=== PATIENT | male | born 1965 | race Caucasian/White ===

== ENCOUNTER 2017-09-18 11:54 | Emergency (ER) | payer SELFPAY ==
--- OUTSIDE RECORDS SUMMARY | 2017-09-18 11:56 | XMS REPORT ---
:1965 [facility] Organization [facility] Address [address] [place] [address] [place] [id number] Care Team Providers Name Role Phone Unavailable Unavailable Unavailable Problems This patient has no known problems. Allergies, Adverse Reactions, Alerts This patient has no known allergies or adverse reactions. Medications This patient has no known medications. Encounters Start End Encounter Admission Attending Care Care Encounter Date/Time Date/Time Type Type Clinicians Facility Department ID 2017-05-23 2017-05-23 Emergency [facility] [id number] 10:14:13 10:14:13 2017-04-02 2017-04-02 Outpatient [facility] [id number] 15:09:47 15:09:47 2017-04-02 2017-04-02 Outpatient [facility] [id number] 14:58:43 14:58:43 2017-04-02 2017-04-02 Outpatient [facility] [id number] 14:04:08 14:04:08 2017-03-28 2017-03-28 Outpatient [facility] [id number] 16:45:33 16:45:33 2017-02-05 2017-02-05 Emergency [facility] [id number] 21:02:24 21:02:24 2017-01-27 2017-01-27 Emergency [facility] [id number] 20:43:13 20:43:13 2017-01-21 2017-01-21 Outpatient [facility] [id number] 00:00:00 00:00:00 2017-01-08 2017-01-08 Outpatient [facility] [id number] 00:00:00 00:00:00 2017-01-01 2017-01-01 Outpatient [facility] [id number] 00:00:00 00:00:00 2017-01-01 2017-01-01 Outpatient [facility] [id number] 00:00:00 00:00:00 2017-01-01 2017-01-01 Outpatient [facility] [id number] 00:00:00 00:00:00 2016-12-18 2016-12-18 Outpatient [facility] [id number] 09:56:12 09:56:12 2016-12-12 2016-12-12 Outpatient [facility] [id number] 11:41:30 11:41:30 2016-12-09 2016-12-09 Emergency [facility] [id number] 09:52:31 09:52:31 2016-12-09 2016-12-09 Outpatient [facility] [id number] 00:00:00 00:00:00 2016-12-08 2016-12-08 Outpatient [facility] [id number] 12:43:28 12:43:28 2016-12-08 2016-12-08 Outpatient [facility] [id number] 10:58:53 10:58:53 2016-11-28 2016-11-28 Outpatient [facility] [id number] 00:00:00 00:00:00 2016-11-28 2016-11-28 Outpatient [facility] [id number] 00:00:00 00:00:00 2016-11-28 2016-11-28 Outpatient [facility] [id number] 00:00:00 00:00:00 2016-11-28 2016-11-28 Outpatient [facility] [id number] 00:00:00 00:00:00 2016-11-27 2016-11-27 Outpatient [facility] [id number] 00:00:00 00:00:00 2016-11-26 2016-11-26 Outpatient [facility] [id number] 14:28:37 14:28:37 2016-11-06 2016-11-06 Outpatient [facility] [id number] 00:00:00 00:00:00 2016-10-29 2016-10-29 Outpatient [facility] [id number] 00:00:00 00:00:00 2016-10-27 2016-10-27 Outpatient [facility] [id number] 09:39:08 09:39:08 2016-10-03 2016-10-03 Outpatient [facility] [id number] 09:27:24 09:27:24
[2017-09-18] MEDS ORDERED: NA CHLORIDE 0.9% 1,000 ML ONE (12:09)
[2017-09-18 12:26] LABS: Absolute Lymphocytes (CBC) 1.7 K/uL (0.7-4.9); Absolute Monocytes 0.4 K/uL (0.1-1.3); Absolute Neutrophil 4.4 K/uL (1.8-8.0); Basophils % 0.5 % (0-1.3); Eosinophils % 0.9 % (0-4.4); Hematocrit 44.9 % (39.6-49.0); Lymphocytes % 25.6 % (15.3-44.8); MCH 28.8 pg (27.0-35.0); MCV 88.3 fL (80-100); MPV 8.2 fL (7.6-11.3); Monocytes % 5.9 % (3.3-12.3); RBC Red Blood Cell Count 5.08 M/uL (4.33-5.43)
--- NOTE | 2017-09-18 12:26 | RAD REPORT ---
EXAM DESCRIPTION: RAD - Chest Single View - 09/18/2017 12:11 pm CLINICAL HISTORY: Diabetes. COMPARISON: None. FINDINGS: Portable technique limits examination quality. The lungs are grossly clear. The heart is normal in size. No displaced fractures. IMPRESSION: No acute intrathoracic process suspected.
[2017-09-18 12:32] LABS: Protime INR 0.98
--- NOTE | 2017-09-18 12:36 | RAD REPORT ---
EXAM DESCRIPTION: CT - Head Brain Wo Cont - 09/18/2017 12:14 pm CLINICAL HISTORY: Hypoglycemia, altered mental status COMPARISON: None. TECHNIQUE: Axial 5 mm thick images of the head were obtained without IV contrast. All CT scans are performed using dose optimization technique as appropriate and may include automated exposure control or mA/KV adjustment according to patient size. FINDINGS: No intracranial hemorrhage, mass, edema or shift of mid-line structures. No acute cortical based infarction. Physiologic calcifications are present along the falx. There is a punctate hyperde nsity along a sulcus medial left frontal lobe not suspected to be true hemorrhage or contusion. No ab normal extra-axial fluid collections. Ventricles are normal. Mastoid air cells and visualized portions of the paranasal sinuses are clear. No acute bony findings. IMPRESSION: Negative non-contrast CT head examination.
[2017-09-18 12:40] LABS: Bicarbonate 26 mEq/L (21-31); Glucose Level 109 mg/dL (65-120); Potassium 3.2 mEq/L (3.6-5.0); Sodium Level 138 mEq/L (135-145)
[2017-09-18 12:46] LABS: ALT/SGPT 21 IU/L (10-60); AST/SGOT 27 IU/L (10-42); Albumin 3.6 g/dL (3.2-5.5); Alkaline Phosphatase 124 IU/L (42-121); BUN Blood Urea Nitrogen 10 mg/dL (6-20); Bilirubin Direct 0.1 mg/dL (0-0.2); Bilirubin Total 0.6 mg/dL (0.3-1.2); Creatine Phosphokinase 160 IU/L (22-269); Magnesium 1.8 mg/dL (1.8-2.5); Protein, Total 7.5 g/dL (6.0-8.3)
[2017-09-18 12:48] LABS: Alcohol Serum/Plasma < 10 mg/dl
[2017-09-18 12:50] LABS: CKMB Creatine Kinase MB 5.5 ng/ml (0.3-4.0)
--- NOTE | 2017-09-18 13:03 | EDPHYS ---
Physician Documentation [facility] Name: Bubba Santillan Age: 52 yrs Sex: Male : 1965 Arrival Date: 09/18/2017 Time: 11:55 Bed 2 Private MD: ED Physician Francisco Garcia HPI: 09/18 11:59 This 52 yrs old Male presents to ER via EMS with complaints of Low Blood sandeep Sugar. 11:59 The patient or guardian reports hypoglycemia. Onset: The symptoms/episode sandeep began/occurred yesterday. Associated signs and symptoms: Pertinent positives: ams. The patient has experienced similar episodes in the past, multiple times. Historical: - Allergies: 12:00 No Known Allergies; ph - Home Meds: 12:00 Novolin N 100 unit/mL Sub-Q susp [Active]; Novolin R 100 unit/mL injection soln ph [Active]; - PMHx: 12:00 Diabetes - IDDM; ph - Immunization history:: Adult Immunizations unknown. - Social history:: Smoking status: unknown. - Family history:: not pertinent. - Ebola Screening: : No symptoms or risks identified at this time. ROS: 11:59 Constitutional: Negative for fever, chills, and weight loss, Eyes: Negative for injury, sandeep pain, redness, and discharge, ENT: Negative for injury, pain, and discharge, Neck: Negative for injury, pain, and swelling, Cardiovascular: Negative for chest pain, palpitations, and edema, Respiratory: Negative for shortness of breath, cough, wheezing, and pleuritic chest pain, Abdomen/GI: Negative for abdominal pain, nausea, vomiting, diarrhea, and constipation, Back: Negative for injury and pain, : Negative for injury, bleeding, discharge, and swelling, MS/Extremity: Negative for injury and deformity, Skin: Negative for injury, rash, and discoloration, Neuro: Negative for headache, weakness, numbness, tingling, and seizure, Psych: Negative for depression, anxiety, suicide ideation, homicidal ideation, and hallucinations, Allergy/Immunology: Negative for hives, rash, and allergies, Hematologic/Lymphatic: Negative for swollen nodes, abnormal bleeding, and unusual bruising. 11:59 Endocrine: Positive for Exam: 11:59 Constitutional: This is a well developed, well nourished patient who is awake, alert, sandeep and in no acute distress. Head/Face: Normocephalic, atraumatic. Eyes: Pupils equal round and reactive to light, extra-ocular motions intact. Lids and lashes normal. Conjunctiva and sclera are non-icteric and not injected. Cornea within normal limits. Periorbital areas with no swelling, redness, or edema. ENT: Nares patent. No nasal discharge, no septal abnormalities noted. Tympanic membranes are normal and external auditory canals are clear. Oropharynx with no redness, swelling, or masses, exudates, or evidence of obstruction, uvula midline. Mucous membranes moist. Neck: Trachea midline, no thyromegaly or masses palpated, and no cervical lymphadenopathy. Supple, full range of motion without nuchal rigidity, or vertebral point tenderness. No Meningismus. Chest/axilla: Normal chest wall appearance and motion. Nontender with no deformity. No lesions are appreciated. Cardiovascular: Regular rate and rhythm with a normal S1 and S2. No gallops, murmurs, or rubs. Normal PMI, no JVD. No pulse deficits. Respiratory: Lungs have equal breath sounds bilaterally, clear to auscultation and percussion. No rales, rhonchi or wheezes noted. No increased work of breathing, no retractions or nasal flaring. Abdomen/GI: Soft, non-tender, with normal bowel sounds. No distension or tympany. No guarding or rebound. No evidence of tenderness throughout. Back: No spinal tenderness. No costovertebral tenderness. Full range of motion. Skin: Warm, dry with normal turgor. Normal color with no rashes, no lesions, and no evidence of cellulitis. MS/ Extremity: Pulses equal, no cyanosis. Neurovascular intact. Full, normal range of motion. Psych: Awake, alert, with orientation to person, place and time. Behavior, mood, and affect are within normal limits. 11:59 Neuro: Orientation: is normal, appropriate for stated age, no acute changes, Mentation: slow to respond, Memory: is normal, appropriate for stated age, no acute changes, Cranial nerves: grossly normal, Cerebellar function: is grossly normal, Motor: is normal, Gait: not tested. Babinski testing is normal. Vital Signs: 11:59 BP 139 / 82; Pulse 92; Resp 18; Temp 97.9; Pulse Ox 97% on R/A; Weight 68.04 kg; ph 13:00 BP 159 / 76; Pulse 88; Resp 18; Pulse Ox 100% on R/A; hb NIH Stroke Scale Scores: 13:01 NIHSS Score: 0 [facility] MDM: 11:57 Patient medically screened. [facility] 12:04 Data reviewed: vital signs, nurses notes, lab test result(s), EKG, radiologic studies, [facility] CT scan, plain films. 09/18 11:58 Order name: Basic Metabolic Panel; Complete Time: 13:00 [facility] 09/18 11:58 Order name: BNP [facility] 09/18 11:58 Order name: CBC with Diff; Complete Time: 12:46 [facility] 09/18 11:58 Order name: Ckmb; Complete Time: 13:00 [facility] 09/18 11:58 Order name: CPK; Complete Time: 13:00 [facility] 09/18 11:58 Order name: LFT's; Complete Time: 13:00 [facility] 09/18 11:58 Order name: Magnesium; Complete Time: 13:00 [facility] 09/18 11:58 Order name: PT-INR; Complete Time: 12:46 [facility] 09/18 11:58 Order name: Ptt, Activated; Complete Time: 12:46 [facility] 09/18 11:58 Order name: Troponin (emerg Dept Use Only); Complete Time: 13:00 [facility] 09/18 11:59 Order name: Acetaminophen; Complete Time: 13:00 [facility] 09/18 11:59 Order name: ETOH Level; Complete Time: 13:00 [facility] 09/18 11:59 Order name: Salicylate; Complete Time: 13:00 [facility] 09/18 11:58 Order name: XRAY Chest (1 view); Complete Time: 12:46 [facility] 09/18 11:58 Order name: EKG; Complete Time: 11:59 [facility] 09/18 11:58 Order name: Cardiac monitoring; Complete Time: 11:59 [facility] 09/18 11:58 Order name: EKG - Nurse/Tech; Complete Time: 11:59 [facility] 09/18 11:58 Order name: IV Saline Lock; Complete Time: 11:59 [facility] 09/18 11:58 Order name: Labs collected and sent; Complete Time: 11:59 [facility] 09/18 11:58 Order name: O2 Per Protocol; Complete Time: 11:59 [facility] 09/18 11:58 Order name: O2 Sat Monitoring; Complete Time: 11:59 [facility] 09/18 11:58 Order name: Diet Heart Healthy; Complete Time: 11:59 [facility] 09/18 11:59 Order name: CT Head Brain wo Cont; Complete Time: 12:46 [facility] 09/18 12:03 Order name: glucometer results - FOR PT WITH NO ID; Complete Time: 12:21 09/18 13:14 Order name: Glucose, Ancillary Testing EDMS Administered Medications: 12:22 Drug: NS 0.9% 1000 ml Route: IV; Rate: 1 bolus; Site: right antecubital; Point of Care Testing: Blood Glucose: 12:01 Blood Glucose: 125 mg/dL; ph 13:10 Blood Glucose: 142 mg/dL; sv Ranges: Critical Glucose Levels:Adult <50 mg/dl or >400 mg/dl <40 mg/dl or >180 mg/dl Disposition: 09/18/17 13:02 Discharged to Home. Impression: Hypoglycemia, unspecified, Altered mental status, unspecified, Type 1 diabetes mellitus. - Condition is Stable. - Discharge Instructions: Type 1 Diabetes Mellitus, Adult, Hypoglycemia, Blood Glucose Monitoring, Adult, Altered Mental Status, Hypoglycemia, [id number]. - Medication Reconciliation Form, Thank You Letter, Antibiotic Education, Prescription Opioid Use form. - Follow up: Private Physician; When: 2 - 3 days; Reason: Recheck today's complaints, Continuance of care, Re-evaluation by your physician. - Problem is new. - Symptoms have improved. NIH Stroke Scale - NIH Stroke Score Date: 09/18/2017 Time: 13:01 Total Score = 0 1a. Level of Consciousness (LOC) - 0(Alert) 1b. Level of Consciousness (LOC) (Year \T\ Age) - 0(Both) 1c. LOC Commands (Open \T\ Closes Eyes/Business Development Executive) - 0(Both) 2. Best Gaze (Lateral Gaze Paresis) - 0(Normal) 3. Visual Field Loss - 0(No visual loss) 4. Facial Palsy - 0(Normal) 5a. Left Arm: Motor (10-second hold) - 0(No drift) 5b. Right Arm: Motor (10-second hold) - 0(No drift) 6a. Left Leg: Motor (5-second hold - always test supine) - 0(No drift) 6b. Right Leg: Motor (5-second hold - always test supine) - 0(No drift) 7. Limb Ataxia (finger/nose \T\ heel/orozco - test with eyes open) - 0(Absent) 8. Sensory Loss (pinprick arms/legs/face) - 0(Normal) 9. Best Language: Aphasia (description/naming/reading) - 0(No aphasia) 10. Dysarthria (speech clarity - read or repeat words) - 0(Normal) 11. Extinction and Inattention (visual/tactile/auditory/spatial/personal) - 0(No abnormality) Initials: [facility] Signatures: Dispatcher [employer] EDMS Amanda Lopes RN RN sv Anderson, Corey, MD MD cha Williams, Irene, RN RN iw Gallardo, Ana ag Hall, Patricia, RN RN ph Corrections: (The following items were deleted from the chart) 13:15 13:02 09/18/2017 13:02 Discharged to Home. Impression: Hypoglycemia, sv unspecified; Altered mental status, unspecified; Type 1 diabetes mellitus. Condition is Stable. Discharge Instructions: Type 1 Diabetes Mellitus, Adult, Hypoglycemia, Blood Glucose Monitoring, Adult, Altered Mental Status, Hypoglycemia, [id number]. Forms are Medication Reconciliation Form, Thank You Letter, Antibiotic Education, Prescription Opioid Use. Follow up: Private Physician; When: 2 - 3 days; Reason: Recheck today's complaints, Continuance of care, Re-evaluation by your physician. Problem is new. Symptoms have improved. [facility] 13:35 13:15 09/18/2017 13:02 Discharged to Home. Impression: Hypoglycemia, ag unspecified; Altered mental status, unspecified; Type 1 diabetes mellitus. Condition is Stable. Discharge Instructions: Type 1 Diabetes Mellitus, Adult, Hypoglycemia, Blood Glucose Monitoring, Adult, Altered Mental Status, Hypoglycemia, [id number]. Forms are Medication Reconciliation Form, Thank You Letter, Antibiotic Education, Prescription Opioid Use. Follow up: Private Physician; When: 2 - 3 days; Reason: Recheck today's complaints, Continuance of care, Re-evaluation by your physician. Problem is new. Symptoms have improved. sv
--- NOTE | 2017-09-18 13:03 | ER ---
Nurse's Notes [facility] Name: Bubba Santillan Age: 52 yrs Sex: Male : 1965 Arrival Date: 09/18/2017 Time: 11:55 Bed 2 Private MD: Diagnosis: Hypoglycemia, unspecified;Altered mental status, unspecified;Type 1 diabetes mellitus Presentation: 09/18 11:55 Presenting complaint: EMS states: " Found by police stumbling around w/ AMS, BGL 23, 1 ph amp D50 given, BGL increased to 157, pt hx of IDDM, reports taking 50-56 units of insulin this morning, pt currently requesting to leave AMA. Transition of care: patient was not received from another setting of care. Onset of symptoms was September 18, 2017. Risk Assessment: Do you want to hurt yourself or someone else? Patient reports no desire to harm self or others. Initial Sepsis Screen: Does the patient meet any 2 criteria? No. Patient's initial sepsis screen is negative. Does the patient have a suspected source of infection? No. Patient's initial sepsis screen is negative. Care prior to arrival: Medication(s) given: D50, 1 amp, IV initiated. 20 GA, in the right antecubital area, Glucose check: 157. 11:55 Method Of Arrival: EMS: [facility] 11:55 Acuity: REED 2 ph Historical: - Allergies: 12:00 No Known Allergies; ph - Home Meds: 12:00 Novolin N 100 unit/mL Sub-Q susp [Active]; Novolin R 100 unit/mL injection soln ph [Active]; - PMHx: 12:00 Diabetes - IDDM; ph - Immunization history:: Adult Immunizations unknown. - Social history:: Smoking status: unknown. - Family history:: not pertinent. - Ebola Screening: : No symptoms or risks identified at this time. Screenin:04 Abuse screen: Denies threats or abuse. Denies injuries from another. Nutritional ph screening: No deficits noted. Tuberculosis screening: No symptoms or risk factors identified. Fall Risk Fall in past 12 months (25 points). No secondary diagnosis (0 pts). IV access (20 points). Ambulatory Aid- None/Bed Rest/Nurse Assist (0 pts). Gait- Weak (10 pts.). Mental Status- Overestimates/Forgets Limitations (15 pts.). Total Winters Fall Scale indicates High Risk Score (45 or more points). Fall prevention measures have been instituted. Side Rails Up X 2 Placed Close to Nursing Station Frequent Obs/Assessments Occuring As available patient and family educated on Fall Prevention Program and Strategies. Assessment: 12:01 Reassessment: Pt agitated, states, "They made me come up here, all I needed was to go ph home and eat. I'm not staying here and someone better pay for gas for me to get home." Dr Garcia at bedside to speak w/ pt, pt agrees to stay and be evaluated, food ordered from cafeteria. 12:23 General: Appears in no apparent distress. Behavior is calm, cooperative. Pain: Denies iw pain. Neuro: Level of Consciousness is awake, alert, obeys commands, Oriented to person, place, time, Moves all extremities. Full function. Cardiovascular: Patient's skin is warm and dry. Respiratory: Respiratory effort is even, unlabored, Respiratory pattern is regular. GI: Abdomen is flat, non-distended. Derm: Skin is intact, is healthy with good turgor. Musculoskeletal: Range of motion: intact in all extremities. 12:27 Reassessment: lunch tray given to pt, sitting up eating. iw 13:03 Reassessment: Patient appears in no apparent distress at this time. Patient and/or hb family updated on plan of care and expected duration. Pain level reassessed. Patient is alert, oriented x 3, equal unlabored respirations, skin warm/dry/pink. Patient denies pain at this time. Patient states feeling better. Patient states symptoms have improved. Vital Signs: 11:59 BP 139 / 82; Pulse 92; Resp 18; Temp 97.9; Pulse Ox 97% on R/A; Weight 68.04 kg; ph 13:00 BP 159 / 76; Pulse 88; Resp 18; Pulse Ox 100% on R/A; hb NIH Stroke Scale Scores: 13:01 NIHSS Score: 0 sandeep ED Course: 11:55 Patient arrived in ED. sv 11:57 Francisco Garcia MD is Attending Physician. sandeep 11:59 Triage completed. ph 12:01 Arm band placed on. ph 12:04 Patient has correct armband on for positive identification. Bed in low position. Call light in reach. Side rails up X 1. Pulse ox on. NIBP on. 12:10 X-ray completed. Portable x-ray completed in exam room. Patient tolerated procedure ml well. 12:11 XRAY Chest (1 view) In Process Unspecified. EDMS 12:13 CT completed. Patient tolerated procedure well. Patient moved to CT via stretcher. sj Patient moved back from CT. 12:13 Maintain EMS IV. Dressing intact. Good blood return noted. Site clean \\T\\ dry. Gauge \\T\\ iw site: 18 RAC. 12:14 CT Head Brain wo Cont In Process Unspecified. EDMS 13:13 Amanda Lopes, PEDRITO is Primary Nurse. sv 13:14 No provider procedures requiring assistance completed. IV discontinued, intact, sv bleeding controlled, No redness/swelling at site. Pressure dressing applied. Administered Medications: 12:22 Drug: NS 0.9% 1000 ml Route: IV; Rate: 1 bolus; Site: right antecubital; iw Point of Care Testing: Blood Glucose: 12:01 Blood Glucose: 125 mg/dL; ph 13:10 Blood Glucose: 142 mg/dL; sv Ranges: Outcome: 13:02 Discharge ordered by . sandeep 13:14 Discharged to home sv 13:14 Condition: improved 13:14 Discharge instructions given to patient, Instructed on discharge instructions, Demonstrated understanding of instructions. 13:15 Patient left the ED. sv 13:35 Patient left the ED. ag NIH Stroke Scale - NIH Stroke Score Date: 09/18/2017 Time: 13:01 Total Score = 0 1a. Level of Consciousness (LOC) - 0(Alert) 1b. Level of Consciousness (LOC) (Year \\T\\ Age) - 0(Both) 1c. LOC Commands (Open \\T\\ Closes Eyes/Veneer Stock Layer) - 0(Both) 2. Best Gaze (Lateral Gaze Paresis) - 0(Normal) 3. Visual Field Loss - 0(No visual loss) 4. Facial Palsy - 0(Normal) 5a. Left Arm: Motor (10-second hold) - 0(No drift) 5b. Right Arm: Motor (10-second hold) - 0(No drift) 6a. Left Leg: Motor (5-second hold - always test supine) - 0(No drift) 6b. Right Leg: Motor (5-second hold - always test supine) - 0(No drift) 7. Limb Ataxia (finger/nose \\T\\ heel/orozco - test with eyes open) - 0(Absent) 8. Sensory Loss (pinprick arms/legs/face) - 0(Normal) 9. Best Language: Aphasia (description/naming/reading) - 0(No aphasia) 10. Dysarthria (speech clarity - read or repeat words) - 0(Normal) 11. Extinction and Inattention (visual/tactile/auditory/spatial/personal) - 0(No abnormality) Initials: sandeep Signatures: Dispatcher [employer] Amanda Metzger RN RN sv Anderson, Corey, MD MD cha Jones, Luna Matute RN RN iw Lopez, Susy Puga, Trice Coronel RN RN Aleah Walker RN RN Corrections: (The following items were deleted from the chart) 12:23 12:13 Maintain EMS IV. Dressing intact. Good blood return noted. Site clean \\T\\ iw dry. Gauge \\T\\ site: 20 RAC. iw
[2017-09-18] MEDS ORDERED: POTASSIUM CL SA 10 MEQ TAB PO ONE (13:12)
--- NOTE | 2017-09-18 17:38 | EKG ---
Test Date: 2017-09-18 Test Time: 12:00:11 Rotor Coil Taper: SAGAR MEASUREMENT RESULTS: Intervals: Rate: 79 [place]: 142 QRSD: 92 QT: 368 QTc: 421 [place]: P: 62 [place]: 142 QRS: 76 T: 48 INTERPRETIVE STATEMENTS: Normal sinus rhythm Normal ECG Compared to ECG 06/01/2017 21:53:54 No significant changes Electronically Signed On 09-18-17 17:36:45 CDT by Vazquez Devine
== END 2017-09-18 13:35 | disposition home or self-care (01) ==
LOC: ER 11:54
DX: E10.649 Type 1 diabetes mellitus with hypoglycemia without coma (principal); Z79.4 Long term (current) use of insulin
CPT/HCPCS: 36415; 70450; 71045; 80048; 80076; 80320; 80329; 82550; 82553; 82962; 83735; 83880; 84484; 85025; 85610; 85730; 93005; 99284; J7030

== ENCOUNTER 2018-08-01 21:43 | Emergency (ER) | payer SELFPAY ==
[2018-08-01 22:33] LABS: Absolute Lymphocytes (CBC) 2.1 K/uL (0.7-4.9); Absolute Monocytes 0.6 K/uL (0.1-1.3); Absolute Neutrophil 5.5 K/uL (1.8-8.0); Basophils % 0.7 % (0-1.3); Eosinophils % 1.6 % (0-4.4); Hematocrit 45.4 % (39.6-49.0); Lymphocytes % 24.7 % (15.3-44.8); Monocytes % 6.8 % (3.3-12.3); RBC Red Blood Cell Count 5.13 M/uL (4.33-5.43)
[2018-08-01 22:55] LABS: Potassium 3.3 mmol/L (3.5-5.1)
[2018-08-01] MEDS ORDERED: D50W 25 GM/50 ML SYRINGE IV ONE (23:18)
[2018-08-01] MEDS ORDERED: D5 0.9 NS 1,000 ML IV ONE (23:19)
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
== END 2018-08-02 00:17 | disposition left against medical advice (07) ==
LOC: ER 21:43
DX: E11.649 Type 2 diabetes mellitus with hypoglycemia without coma (principal); I10 Essential (primary) hypertension; F17.210 Nicotine dependence, cigarettes, uncomplicated; Z79.4 Long term (current) use of insulin
CPT/HCPCS: 36415; 80048; 82962; 85025; 96365; 96375; 99284

== ENCOUNTER 2019-01-19 22:42 | Observation (INO) | payer SELFPAY ==
[2019-01-19] MEDS ORDERED: INSULIN -REGULAR HUMAN 50 UNIT/0.5 ML ML ONE (23:02)
[2019-01-19] MEDS ORDERED: NA CHLORIDE 0.9% 2,000 ML ONE (23:02)
[2019-01-19 23:22] LABS: Urine Blood TRACE (NEG); Urine Glucose 2+ (NEG); Urine Protein NEGATIVE (NEG); Urine Specific Gravity 1.015 (1.005-1.030); Urine pH 5.5 (5.0-7.0)
[2019-01-19 23:26] LABS: Absolute Lymphocytes (CBC) 1.2 K/uL (0.7-4.9); Basophils % 0.8 % (0-1.3); Hematocrit 45.2 % (39.6-49.0); Lymphocytes % 21.6 % (15.3-44.8); MPV 8.7 fL (7.6-11.3); RBC Red Blood Cell Count 4.96 M/uL (4.33-5.43)
[2019-01-19 23:27] LABS: Protime INR 1.06
[2019-01-20 00:08] LABS: ALT/SGPT 23 U/L (12-78); AST/SGOT 21 U/L (15-37); Albumin 3.5 g/dL (3.4-5.0); Alkaline Phosphatase 178 U/L (45-117); BUN Blood Urea Nitrogen 15 mg/dL (7-18); Bicarbonate 19 mmol/L (21-32); Bilirubin Direct 0.2 mg/dL (0-0.2); Bilirubin Total 1.2 mg/dL (0.2-1.0); Glucose Level 527 mg/dL (74-106); Lipase 30 U/L (73-393); NT PRO-BNP 32 pg/mL (<125); Potassium 4.5 mmol/L (3.5-5.1); Protein, Total 7.9 g/dL (6.4-8.2); Sodium Level 136 mmol/L (136-145); Troponin (Emerg Dept Use Only) < 0.02 ng/mL (0.0-0.045)
[2019-01-20] MEDS ORDERED: INSULIN -REGULAR HUMAN 50 UNIT/0.5 ML ML ONE (00:35)
[2019-01-20 00:55] LABS: Arterial Blood Carboxyhemoglob 2.1 % (0-1.5); Blood O2 Saturation 91.7 % (92-98.5)
--- NOTE | 2019-01-20 01:54 | ER ---
Nurse's Notes [facility] Name: Bubba Ahumada Age: 53 yrs Sex: Male : 1965 Arrival Date: 01/19/2019 Time: 22:45 Bed 6 Private MD: Diagnosis: Type 1 diabetes mellitus;Hyperglycemia, unspecified;Volume depletion;Volume depletion, unspecified Presentation: 01/19 22:45 Presenting complaint: EMS states: pt stated he lost his insulin yesterday and has not ak1 had any insulin since yesterday. pt FSBG 476, pt given 500mL NS in route. Transition of care: patient was not received from another setting of care. Onset of symptoms was January 19, 2019. Risk Assessment: Do you want to hurt yourself or someone else? Patient reports no desire to harm self or others. Initial Sepsis Screen: Does the patient meet any 2 criteria? No. Patient's initial sepsis screen is negative. Does the patient have a suspected source of infection? No. Patient's initial sepsis screen is negative. Care prior to arrival: None. 22:45 Method Of Arrival: EMS: [facility] ak1 22:45 Acuity: REED 3 ak1 Triage Assessment: 22:47 General: Appears in no apparent distress. Behavior is calm, cooperative. ak1 22:48 Pain: Denies pain. ak1 Historical: - Allergies: 22:47 No Known Allergies; ak1 - Home Meds: 22:47 insulin 70/30 [Active]; ak1 - PMHx: 22:47 Diabetes - IDDM; Hypertension; ak1 - PSHx: 22:47 None; ak1 - Immunization history:: Adult Immunizations unknown. - Social history:: Smoking status: Patient uses tobacco products, smokes one-half pack cigarettes per day, Patient/guardian denies using alcohol. - Ebola Screening: : No symptoms or risks identified at this time. - Family history:: not pertinent. Screenin:48 Abuse screen: Denies threats or abuse. Denies injuries from another. Nutritional ak1 screening: No deficits noted. Tuberculosis screening: No symptoms or risk factors identified. Fall Risk None identified. Assessment: 23:35 General: Appears in no apparent distress. unkempt, Behavior is calm, cooperative, tl1 appropriate for age. 23:35 Pain: Denies pain. Neuro: Level of Consciousness is awake, alert, obeys commands, tl1 Oriented to person, place, time, situation. Cardiovascular: Denies chest pain. Respiratory: Airway is patent Trachea midline Respiratory effort is even, unlabored, Breath sounds are clear bilaterally. GI: Abdomen is non-distended, Bowel sounds present X 4 quads. Abd is soft and non tender X 4 quads. Reports nausea. : No signs and/or symptoms were reported regarding the genitourinary system. EENT: No signs and/or symptoms were reported regarding the EENT system. Derm: No signs and/or symptoms reported regarding the dermatologic system. 01/20 01:45 Reassessment: Patient and/or family updated on plan of care and expected duration. Pain tl1 level reassessed. Patient is alert, oriented x 3, equal unlabored respirations, skin warm/dry/pink. Patient states feeling better. Patient states symptoms have improved. General: Appears in no apparent distress. Behavior is calm, cooperative, appropriate for age. Pain: Denies pain. Neuro: Level of Consciousness is awake, alert, obeys commands, Oriented to person, place, time, situation. Cardiovascular: Denies chest pain. Respiratory: Airway is patent Trachea midline Respiratory effort is even, unlabored, Breath sounds are clear bilaterally. GI: Abdomen is non-distended, Bowel sounds present X 4 quads. Abd is soft and non tender X 4 quads. Patient currently denies nausea. : No signs and/or symptoms were reported regarding the genitourinary system. : No signs and/or symptoms were reported regarding the genitourinary system. EENT: No signs and/or symptoms were reported regarding the EENT system. Derm: No signs and/or symptoms reported regarding the dermatologic system. 02:19 Reassessment: Patient is alert, oriented x 3, equal unlabored respirations, skin bb warm/dry/pink. pt verbalized understanding of and agrees to plan of care. Pt is now admitted for further evaluation and treatment. 03:59 Reassessment: Patient and/or family updated on plan of care and expected duration. Pain bb level reassessed. pt resting quietly, no signs of distress noted. 07:40 Reassessment: Patient appears in no apparent distress at this time. Patient and/or sg family updated on plan of care and expected duration. Pain level reassessed. Patient is alert, oriented x 3, equal unlabored respirations, skin warm/dry/pink. assessing pt, plans to dc pt to home with family/friend, pt stated understanding and is in agreement with POC at this time, pt to be dc to home, see [facility] charting for discharge Patient denies pain at this time. Patient states feeling better. Patient states symptoms have improved. Vital Signs: 01/19 22:47 BP 129 / 68; Pulse 90; Resp 16; Temp 97.0; Pulse Ox 98% on R/A; Weight 68.04 kg (R); ak1 Height 5 ft. 6 in. (167.64 cm) (R); Pain 0/10; 23:44 BP 131 / 68; Pulse 93; Resp 22; Pulse Ox 98% on R/A; Pain 0/10; tl1 01/20 00:38 BP 120 / 68; Pulse 79; Resp 22; Pulse Ox 98% on R/A; tl1 01:43 BP 114 / 68; Pulse 80; Resp 17; Temp 97.6(TE); Pulse Ox 97% on R/A; Pain 0/10; tl1 02:20 BP 114 / 62; Pulse 95; Resp 20 S; Temp 98(O); Pulse Ox 98% on R/A; bb 03:48 BP 112 / 64; Pulse 78; Resp 17; Pulse Ox 97% on R/A; Pain 0/10; tl1 01/19 22:47 Body Mass Index 24.21 (68.04 kg, 167.64 cm) ak1 ED Course: 01/19 22:45 Patient arrived in ED. ak1 22:46 Triage completed. ak1 22:47 Arm band placed on Patient placed in an exam room, on a stretcher, on pulse oximetry, ak1 Patient notified of wait time. 22:47 Maintain EMS IV. Dressing intact. Site clean \T\ dry. Gauge \T\ site: 18g left forearm. ak 1 22:48 Patient has correct armband on for positive identification. Placed in gown. Bed in low ak1 position. Call light in reach. Side rails up X 1. Pulse ox on. NIBP on. 22:55 Francisco Garcia MD is Attending Physician. [facility] 22:55 Lasagna, Kim, RN is Primary Nurse. tl1 23:12 XRAY Chest (1 view) In Process Unspecified. EDMS 23:23 Inserted saline lock: 20 gauge in right antecubital area, using aseptic technique. jb5 Blood collected. 23:25 Lipase Sent. jb5 23:25 Basic Metabolic Panel Sent. jb5 23:25 CBC with Diff Sent. jb5 23:26 LFT's Sent. jb5 23:26 Magnesium Sent. jb5 23:26 NT PRO-BNP Sent. jb5 23:26 PT-INR Sent. jb5 23:26 Troponin (emerg Dept Use Only) Sent. jb5 01/20 00:07 Notified ED physician of a critical lab result(s). 527 Dr Garcia notified. bb 01:22 Demond Jeffery MD is Referral Physician. sandeep 02:02 David Nye MD is Hospitalizing Provider. sandeep 02:21 IV discontinued, intact, bleeding controlled, No redness/swelling at site. Pressure bb dressing applied. 02:21 No provider procedures requiring assistance completed. bb 02:47 Inserted saline lock: 22 gauge in right forearm, using aseptic technique. Blood jb5 collected. 07:31 Assisted to bathroom. mb4 Administered Medications: 01/19 23:11 Drug: NS 0.9% 1000 ml Route: IV; Rate: 1 bolus; Site: right antecubital; tl1 23:11 Drug: NS 0.9% 1000 ml Route: IV; Rate: 1 bolus; Site: right antecubital; tl1 23:22 Drug: Insulin Regular Human 10 units {Co-Signature: isiah (Ashlyn Angulo RN).} Route: tl1 IVP; Site: left antecubital; 01/20 00:39 Follow up: Response: No adverse reaction; Marked relief of symptoms; Temperature is tl1 decreased 00:55 Not Given (Physician Discretion): Insulin Regular Human 10 units Sub-Q once bb 02:13 Drug: LanTUS 40 units Route: Sub-Q; Site: abdomen; bb 02:19 Follow up: Response: Medication administered at discharge. bb 02:19 Not Given (patient discharged): NS 0.9% 1000 ml IV at 125 ml/hr continuous tl1 Point of Care Testing: Blood Glucose: 01/19 22:56 Blood Glucose: 470 mg/dL; tl1 01/20 00:38 Blood Glucose: 282 mg/dL; tl1 Ranges: Outcome: 01:[address] . [facility] 02:02 Decision to Hospitalize by Provider. [facility] 03:58 Condition: stable bb 03:58 Instructed on the need for admit. 05:39 Admitted to ER Hold. Please see [facility] for further documentation. 07:52 Patient left the ED. 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 pt states that the family/friend accidentally lost his insulin and that got him to his current situation Signatures: Dispatcher [employer] EDMS Bhupendra Brown, RN RN Francisco Ramirez MD MD cha Chretien, Felicia, RN RN Ashlyn Angulo RN RN bb Lasagna, Tonya, RN RN tl1 Lora Gong RN RN akSoila Keys jb5 Veronique Walter mb4 Ashlyn Angulo RN bb Corrections: (The following items were deleted from the chart) 00:10 00:07 Notified Nurse Practitioner and/or Physician Lobster Catcher of a critical lab bb result(s), glucose 527 Josette Michelle [employer] notified bb 04:00 02:19 Reassessment: Patient is alert, oriented x 3, equal unlabored respirations, skin bb warm/dry/pink. pt verbalized understanding of and agrees to plan of care discharge instructions given pt ambulated with steady gait to exit bb
--- NOTE | 2019-01-20 01:55 | EDPHYS ---
Physician Documentation [facility] Name: Bubba Ahumada Age: 53 yrs Sex: Male : 1965 Arrival Date: 01/19/2019 Time: 22:45 Bed 6 Private MD: ED Physician Francisco Garcia HPI: 01/20 00:24 This 53 yrs old Male presents to ER via EMS with complaints of High Blood sandeep Sugar. 00:24 The patient or guardian reports hyperglycemia. Onset: The symptoms/episode sandeep began/occurred 1 day(s) ago. Associated signs and symptoms: Pertinent positives: polydipsia, polyuria. Current symptoms: In the emergency department the patient's symptoms have improved, moderately. Historical: - Allergies: 01/19 22:47 No Known Allergies; ak1 - Home Meds: 22:47 insulin 70/30 [Active]; ak1 - PMHx: 22:47 Diabetes - IDDM; Hypertension; ak1 - PSHx: 22:47 None; ak1 - Immunization history:: Adult Immunizations unknown. - Social history:: Smoking status: Patient uses tobacco products, smokes one-half pack cigarettes per day, Patient/guardian denies using alcohol. - Ebola Screening: : No symptoms or risks identified at this time. - Family history:: not pertinent. ROS: 01/20 00:24 Constitutional: Negative for fever, chills, and weight loss, Eyes: Negative for injury, sandeep pain, redness, and discharge, ENT: Negative for injury, pain, and discharge, Neck: Negative for injury, pain, and swelling, Cardiovascular: Negative for chest pain, palpitations, and edema, Respiratory: Negative for shortness of breath, cough, wheezing, and pleuritic chest pain, Abdomen/GI: Negative for abdominal pain, nausea, vomiting, diarrhea, and constipation, Back: Negative for injury and pain, : Negative for injury, bleeding, discharge, and swelling, MS/Extremity: Negative for injury and deformity, Skin: Negative for injury, rash, and discoloration, Neuro: Negative for headache, weakness, numbness, tingling, and seizure, Psych: Negative for depression, anxiety, suicide ideation, homicidal ideation, and hallucinations, Allergy/Immunology: Negative for hives, rash, and allergies, Endocrine: Negative for neck swelling, polydipsia, polyuria, polyphagia, and marked weight changes, Hematologic/Lymphatic: Negative for swollen nodes, abnormal bleeding, and unusual bruising. Exam: 00:24 Constitutional: This is a well developed, well nourished patient who is awake, alert, sandeep and in no acute distress. Head/Face: Normocephalic, atraumatic. Eyes: Pupils equal round and reactive to light, extra-ocular motions intact. Lids and lashes normal. Conjunctiva and sclera are non-icteric and not injected. Cornea within normal limits. Periorbital areas with no swelling, redness, or edema. ENT: Nares patent. No nasal discharge, no septal abnormalities noted. Tympanic membranes are normal and external auditory canals are clear. Oropharynx with no redness, swelling, or masses, exudates, or evidence of obstruction, uvula midline. Mucous membranes moist. Neck: Trachea midline, no thyromegaly or masses palpated, and no cervical lymphadenopathy. Supple, full range of motion without nuchal rigidity, or vertebral point tenderness. No Meningismus. Chest/axilla: Normal chest wall appearance and motion. Nontender with no deformity. No lesions are appreciated. Cardiovascular: Regular rate and rhythm with a normal S1 and S2. No gallops, murmurs, or rubs. Normal PMI, no JVD. No pulse deficits. Respiratory: Lungs have equal breath sounds bilaterally, clear to auscultation and percussion. No rales, rhonchi or wheezes noted. No increased work of breathing, no retractions or nasal flaring. Abdomen/GI: Soft, non-tender, with normal bowel sounds. No distension or tympany. No guarding or rebound. No evidence of tenderness throughout. Back: No spinal tenderness. No costovertebral tenderness. Full range of motion. Skin: Warm, dry with normal turgor. Normal color with no rashes, no lesions, and no evidence of cellulitis. MS/ Extremity: Pulses equal, no cyanosis. Neurovascular intact. Full, normal range of motion. Neuro: Awake and alert, GCS 15, oriented to person, place, time, and situation. Cranial nerves II-XII grossly intact. Motor strength 5/5 in all extremities. Sensory grossly intact. Cerebellar exam normal. Normal gait. Psych: Awake, alert, with orientation to person, place and time. Behavior, mood, and affect are within normal limits. Vital Signs: 01/19 22:47 BP 129 / 68; Pulse 90; Resp 16; Temp 97.0; Pulse Ox 98% on R/A; Weight 68.04 kg (R); ak1 Height 5 ft. 6 in. (167.64 cm) (R); Pain 0/10; 23:44 BP 131 / 68; Pulse 93; Resp 22; Pulse Ox 98% on R/A; Pain 0/10; tl1 01/20 00:38 BP 120 / 68; Pulse 79; Resp 22; Pulse Ox 98% on R/A; tl1 01:43 BP 114 / 68; Pulse 80; Resp 17; Temp 97.6(TE); Pulse Ox 97% on R/A; Pain 0/10; tl1 02:20 BP 114 / 62; Pulse 95; Resp 20 S; Temp 98(O); Pulse Ox 98% on R/A; bb 03:48 BP 112 / 64; Pulse 78; Resp 17; Pulse Ox 97% on R/A; Pain 0/10; tl1 01/19 22:47 Body Mass Index 24.21 (68.04 kg, 167.64 cm) ak1 MDM: 01/19 22:55 Patient medically screened. [facility] 01/20 00:26 Data reviewed: vital signs, nurses notes, lab test result(s), EKG, radiologic studies, sandeep plain films. 01/19 22:56 Order name: Basic Metabolic Panel; Complete Time: 00:22 [facility] 01/19 22:56 Order name: CBC with Diff; Complete Time: 00:22 [facility] 01/19 22:56 Order name: LFT's; Complete Time: 00:22 [facility] 01/19 22:56 Order name: Magnesium; Complete Time: 00:22 [facility] 01/19 22:56 Order name: NT PRO-BNP; Complete Time: 00:22 [facility] 01/19 22:56 Order name: PT-INR; Complete Time: 00:22 [facility] 01/19 22:56 Order name: Troponin (emerg Dept Use Only); Complete Time: 00:22 [facility] 01/19 22:56 Order name: Lipase; Complete Time: 00:22 [facility] 01/19 23:09 Order name: Urine Dipstick--Ancillary (enter results); Complete Time: 00:22 [facility] 01/20 00:23 Order name: Ketone, Serum; Complete Time: 02:01 [facility] 01/20 00:23 Order name: ABG; Complete Time: 01:20 [facility] 01/20 02:50 Order name: Basic Metabolic Panel [facility] 01/20 02:50 Order name: CBC with Automated Diff [facility] 01/20 02:50 Order name: Hemoglobin A1c [facility] 01/19 22:56 Order name: XRAY Chest (1 view) [facility] 01/19 22:56 Order name: EKG; Complete Time: 22:58 [facility] 01/19 22:56 Order name: Cardiac monitoring; Complete Time: 23:30 [facility] 01/20 02:47 Order name: CONS Pharmacy Consult [facility] 01/20 02:47 Order name: Consistent Carb (ADA) [address] [facility] 01/20 02:51 Order name: Lipid Profile [facility] 01/20 02:51 Order name: Magnesium [facility] 01/20 02:51 Order name: Phosphorus [facility] 01/20 02:51 Order name: Acetone Level [facility] 01/20 03:01 Order name: Chem 7 [facility] 01/19 22:56 Order name: EKG - Nurse/Tech; Complete Time: 23:26 [facility] 01/19 22:56 Order name: IV Saline Lock; Complete Time: 23:29 [facility] 01/19 22:56 Order name: Labs collected and sent; Complete Time: 23:29 [facility] 01/19 22:56 Order name: O2 Per Protocol; Complete Time: 23:29 [facility] 01/19 22:56 Order name: O2 Sat Monitoring; Complete Time: 23:29 [facility] 01/19 22:56 Order name: Urine Dipstick-Ancillary (obtain specimen); Complete Time: 23:07 [facility] Administered Medications: 01/19 23:11 Drug: NS 0.9% 1000 ml Route: IV; Rate: 1 bolus; Site: right antecubital; tl1 23:11 Drug: NS 0.9% 1000 ml Route: IV; Rate: 1 bolus; Site: right antecubital; tl1 23:22 Drug: Insulin Regular Human 10 units {Co-Signature: isiah (Ashlyn Angulo RN).} Route: tl1 IVP; Site: left antecubital; 01/20 00:39 Follow up: Response: No adverse reaction; Marked relief of symptoms; Temperature is tl1 decreased 00:55 Not Given (Physician Discretion): Insulin Regular Human 10 units Sub-Q once bb 02:13 Drug: LanTUS 40 units Route: Sub-Q; Site: abdomen; bb 02:19 Follow up: Response: Medication administered at discharge. bb 02:19 Not Given (patient discharged): NS 0.9% 1000 ml IV at 125 ml/hr continuous tl1 Point of Care Testing: Blood Glucose: 01/19 22:56 Blood Glucose: 470 mg/dL; tl1 01/20 00:38 Blood Glucose: 282 mg/dL; tl1 Ranges: Critical Glucose Levels:Adult <50 mg/dl or >400 mg/dl <40 mg/dl or >180 mg/dl Disposition: 01/20/19 02:02 Hospitalization ordered by David Nye for Inpatient Admission. Preliminary diagnosis are Type 1 diabetes mellitus, Hyperglycemia, unspecified, Volume depletion, Volume depletion, unspecified. - Bed requested for Telemetry/MedSurg (Inpatient). - Status is Inpatient Admission. sg - Condition is Fair. - Problem is new. - Symptoms have improved. UTI on Admission? No Signatures: Dispatcher [employer] EDMS Alicia Goins, RN PEDRITO Bhupendra Brown RN RN Francisco Ramirez MD MD cha Ballard, Brenda RN PEDRITO bb Kim Monreal RN RN [facility] Lora Gong RN RN [facility] Ashlyn Angulo RN bb Corrections: (The following items were deleted from the chart) 02:01 01:23 01/20/2019 01:23 Discharged to Home. Impression: Type 1 diabetes mellitus; sandeep Hyperglycemia, unspecified. Condition is Stable. Discharge Instructions: Type 1 Diabetes Mellitus, Diagnosis, Adult, Hyperglycemia, Hyperglycemia, [id number], Type 1 Diabetes Mellitus, Diagnosis, Adult, [id number], Type 1 Diabetes Mellitus, Self Care, Adult, [id number]. Forms are Medication Reconciliation Form, Thank You Letter, Antibiotic Education, Prescription Opioid Use. Follow up: Private Physician; When: 2 - 3 days; Reason: Recheck today's complaints, Continuance of care, Re-evaluation by your physician. Follow up: Demond Jeffery; When: 2 - 3 days; Reason: Recheck today's complaints, Re-evaluation by your physician. Problem is new. Symptoms have improved. sandeep 02:34 02:02 Hospitalization Ordered by David Nye MD for Inpatient Admission. Preliminary mw diagnosis is Type 1 diabetes mellitus; Hyperglycemia, unspecified; Volume depletion; Volume depletion, unspecified. Bed requested for Telemetry/MedSurg (Inpatient). Status is Inpatient Admission. Condition is Fair. Problem is new. Symptoms have improved. UTI on Admission? No. sandeep 05:46 02:34 01/20/2019 02:02 Hospitalization Ordered by David Nye MD for Inpatient mw Admission. Preliminary diagnosis is Type 1 diabetes mellitus; Hyperglycemia, unspecified; Volume depletion; Volume depletion, unspecified. Bed requested for [facility] ER HOLD. Status is Inpatient Admission. Condition is Fair. Problem is new. Symptoms have improved. UTI on Admission? No. mw 07:52 05:46 01/20/2019 02:02 Hospitalization Ordered by aDvid Nye MD for Inpatient sg Admission. Preliminary diagnosis is Type 1 diabetes mellitus; Hyperglycemia, unspecified; Volume depletion; Volume depletion, unspecified. Bed requested for Telemetry/MedSurg (Inpatient). Status is Inpatient Admission. Condition is Fair. Problem is new. Symptoms have improved. UTI on Admission? No. mw
[2019-01-20] MEDS ORDERED: INSULIN GLARGINE 100 UNITS/ML SQ ONE ×2 (02:10→02:44)
[2019-01-20] MEDS ORDERED: GLUCAGON 1 MG/VIAL IM PRN (02:41)
[2019-01-20] MEDS ORDERED: ACETAMINOPHEN 500 MG TAB PO PRN (02:41)
[2019-01-20] MEDS ORDERED: MORPHINE 2 MG/ML SYR IV PRN (02:41)
[2019-01-20] MEDS ORDERED: D50W 25 GM/50 ML SYRINGE IV PRN (02:41)
[2019-01-20] MEDS ORDERED: NA CHLORIDE 0.9% 1,000 ML IV SCH (03:00)
[2019-01-20 03:38] LABS: Potassium 4.2 mmol/L (3.5-5.1)
[2019-01-20] MEDS ORDERED: NA CHLORIDE 0.9% 1,000 ML ONE (03:54)
[2019-01-20 05:10] VITALS: BP 105/53; TEMP 98.2
[2019-01-20 05:29] VITALS: BMI 25.0
[2019-01-20 06:20] LABS: Absolute Lymphocytes (CBC) 2.2 K/uL (0.7-4.9); Basophils % 1.2 % (0-1.3); Hematocrit 40.5 % (39.6-49.0); Lymphocytes % 32.3 % (15.3-44.8); MPV 8.1 fL (7.6-11.3); RBC Red Blood Cell Count 4.59 M/uL (4.33-5.43)
[2019-01-20 06:31] LABS: BUN Blood Urea Nitrogen 13 mg/dL (7-18); Bicarbonate 23 mmol/L (21-32); Glucose Level 273 mg/dL (74-106); HDL Cholesterol 49 mg/dL (40-60); LDL Cholesterol, Calculated 90 (<130); Phosphorus 2.4 mg/dL (2.5-4.9); Potassium 4.3 mmol/L (3.5-5.1); Sodium Level 141 mmol/L (136-145)
--- NOTE | 2019-01-20 07:13 | P.SSS ---
Patient History Date of Service: 01/20/19 Reason for admission: DKA History of Present Illness: Patient is a 53yo who presents with DKA. Patient hasn't been taking his medications. His acetone was positive, and he had a slight metabolic acidosis. Patient was admitted to the hospital for further evaluation. Allergies No Known Allergies Allergy (Verified 01/20/19 05:13) Home Medications: Insulin 70/30 NPH/Reg Human [Novolin 70/30*] 40 units SQ BID 01/20/19 - Past Medical/Surgical History Has patient received pneumonia vaccine in the past: Yes Diabetic: Yes -: HTN -: IDDM - Family History Family History: Reviewed- Non-Contributory - Social History Smoking Status: Current some day smoker Alcohol use: Yes CD- Drugs: No Caffeine use: Yes Place of Residence: Home Review of Systems 10-point ROS is otherwise unremarkable Physical Examination - Vital Signs Temperature: 98.2 F Blood Pressure: 105/53 Pulse: 66 Respirations: 18 Pulse Ox (%): 97 - Physical Exam General: Alert, In no apparent distress, Oriented x3 HEENT: Atraumatic, PERRLA, Mucous membr. moist/pink, EOMI, Sclerae nonicteric Neck: Supple, 2+ carotid pulse no bruit, No LAD, Without JVD or thyroid abnormality Respiratory: Clear to auscultation bilaterally, Normal air movement Cardiovascular: Regular rate/rhythm, Normal S1 S2, No murmurs Gastrointestinal: Normal bowel sounds, Soft and benign, Non-distended, No tenderness Musculoskeletal: No clubbing, No swelling, No tenderness Integumentary: No rashes Neurological: Normal gait, Normal speech, Normal strength at 5/5 x4 extr, Normal tone, Sensation intact, Cranial nerves 3-12 intact, Normal affect Lymphatics: No axilla or inguinal lymphadenopathy - Studies Laboratory Data (last 24 hrs) 01/20/19 02:46: Sodium 139, Potassium 4.2, BUN 13, Creatinine 0.96, Glucose 301 H 01/19/19 22:53: PT 12.5, INR 1.06 01/19/19 22:53: WBC 5.7, Hgb 14.7, Hct 45.2, Plt Count 240 01/19/19 22:53: Sodium 136, Potassium 4.5, BUN 15, Creatinine 1.20, Glucose 527 H*, Magnesium 2.0, Total Bilirubin 1.2 H, AST 21, ALT 23, Alkaline Phosphatase 178 H, Lipase 30 L - Diagnosis (Problem(s)) (1) DKA (diabetic ketoacidoses) Current Visit: Yes Status: Acute Qualifiers: Diabetes mellitus type: type 1 Diabetes mellitus complication detail: without coma Qualified Code(s): E10.10 - Type 1 diabetes mellitus with ketoacidosis without coma Treatment Summary: Patient was treated aggressively with Insulin drip and IV hydration. Patient has started to feel much better. Patient is refusing to stay in the hospital any longer. He wants to go home with his friends , and he states they will help his with his insulin. Patient is stable for discharge with close outpatient follow-up. - Disposition Discharge Date: 01/20/19 Disposition: ROUTINE DISCHARGE Condition: GOOD Patient Discharge Instructions: OK to DC IV and DC home after breakfast. Follow -up with PCP in 1-2 weeks. Patient needs to pick-up his insulin RAULITO(He gets his insulin 70/30 at [facility] Call Dr. Nye if any questions regarding hospital [phone]. Return to the ER if symptoms worsens Diet: ADA Activity: Ad doris Physician Review Additional Text: Patient has been noncompliant-needs to take his insulin daily along with daily ADA diet. Critical Care: No Time Spent Managing Pts Care (In Minutes): 40
[2019-01-20] MEDS ORDERED: INSULIN -REGULAR HUMAN 50 UNIT/0.5 ML ML SQ SCH (07:30)
--- NOTE | 2019-01-20 07:39 | RAD REPORT ---
EXAM DESCRIPTION: RAD - Chest Single View - 01/19/2019 11:12 pm CLINICAL HISTORY: Cough, hyperglycemia, shortness of breath COMPARISON: August 2017 TECHNIQUE: AP portable chest image was obtained . FINDINGS: No focal lung parenchymal process. Interstitial pattern is not substantially different. A more shallow inspiratory effort on the current study slightly increases lung markings. Trachea is mid line. Hilar regions are normal and stable. Heart and vasculature are normal. No measurable pleural ef fusion and no pneumothorax. No acute bony abnormality seen. No acute aortic findings suspected. IMPRESSION: No acute cardiopulmonary process. No significant interval change.
[2019-01-20 08:20] VITALS: O2SAT 97
--- NOTE | 2019-01-21 08:43 | EKG ---
Test Date: 2019-01-19 Test Time: 23:37:50 Curriculum Counselor: SARAY MEASUREMENT RESULTS: Intervals: Rate: 93 OH: 150 QRSD: 94 QT: 360 QTc: 447 [place]: P: 70 OH: 150 QRS: 84 T: 57 INTERPRETIVE STATEMENTS: Normal sinus rhythm Normal ECG No previous ECG available for comparison Electronically Signed On 01-21-19 08:41:20 CDT by Mike Abernathy
== END 2019-01-20 07:50 | disposition home or self-care (01) ==
LOC: ER 22:42 → ERHOLD 01-20 03:07
PROVIDERS: ADMIT Hospitalist; ATTEND Hospitalist
DX: E10.10 Type 1 diabetes mellitus with ketoacidosis without coma (principal); I10 Essential (primary) hypertension; F17.200 Nicotine dependence, unspecified, uncomplicated
CPT/HCPCS: 36415; 71045; 80048; 80061; 80076; 81003; 82010; 82805; 82962; 83036; 83690; 83735; 83880; 84100; 84484; 85025; 85610; 93005; 96372; 96374; 99285; G0378; J7030

== ENCOUNTER 2019-08-01 15:40 | Emergency (ER) | payer SELFPAY ==
[2019-08-01] MEDS ORDERED: FOLIC ACID 5 MG/ML VIAL ONE (16:06)
[2019-08-01] MEDS ORDERED: NA CHLORIDE 0.9% 1,000 ML ONE (16:06)
[2019-08-01 16:19] LABS: Absolute Lymphocytes (CBC) 1.4 K/uL (0.7-4.9); Basophils % 0.6 % (0-1.3); Lymphocytes % 27.4 % (15.3-44.8); MPV 8.4 fL (7.6-11.3); RBC Red Blood Cell Count 5.53 M/uL (4.33-5.43)
[2019-08-01 16:23] LABS: Protime INR 1.03
[2019-08-01] MEDS ORDERED: LORazepam 2 MG/ML VIAL ONE (16:30)
[2019-08-01 16:40] LABS: Barbiturates NEGATIVE (NEGATIVE); Benzodiazepines NEGATIVE (NEGATIVE); Cocaine NEGATIVE (NEGATIVE); METHAMPHETAM NEGATIVE (NEGATIVE); Methadone NEGATIVE (NEGATIVE); Opiates NEGATIVE (NEGATIVE); Phencyclidine NEGATIVE (NEGATIVE); THC Cannibis NEGATIVE (NEGATIVE)
--- NOTE | 2019-08-01 16:52 | RAD REPORT ---
EXAM DESCRIPTION: MRI - Brain Wo Cont - 08/01/2019 4:42 pm CLINICAL HISTORY: Confused;Aphasia COMPARISON: No comparisons TECHNIQUE: Sagittal T1-weighted images were obtained along with axial PD, heavily T2-weighted and T2 -FLAIR images. Axial DWI and ADC mapping sequences were also obtained along with coronal heavily T2-w eighted images. FINDINGS: Examination has extensive motion degradation artifacts across multiple image acquisitions. No intracranial hemorrhage, mass or acute infarction. There is no edema or shift of midline structure s. No extra-axial fluid collections. Gonzalez-matter/white matter junction is preserved. Signal voids are seen as a normal finding in the major intracranial vessels. Early volume loss changes are evident. M ild in degree but slightly greater than seen for age. Ventricles are in proportion. No sella or supra sella abnormality. No globe or orbital content abnormality suspected. No tonsillar ectopia. Mastoid air cells and paranasal sinuses are clear. IMPRESSION: Motion degraded MRI study shows no acute infarction change. No hemorrhage, mass or acute intracranial finding seen.
[2019-08-01 17:01] LABS: ALT/SGPT 30 U/L (12-78); AST/SGOT 25 U/L (15-37); Albumin 3.5 g/dL (3.4-5.0); Alkaline Phosphatase 131 U/L (45-117); BUN Blood Urea Nitrogen 12 mg/dL (7-18); Bicarbonate 23 mmol/L (21-32); Bilirubin Direct 0.1 mg/dL (0-0.2); Bilirubin Total 0.5 mg/dL (0.2-1.0); Glucose Level 347 mg/dL (74-106); Magnesium 1.9 mg/dL (1.8-2.4); NT PRO-BNP 17 pg/mL (<125); Potassium 4.1 mmol/L (3.5-5.1); Protein, Total 8.1 g/dL (6.4-8.2); Sodium Level 137 mmol/L (136-145); Troponin (Emerg Dept Use Only) < 0.02 ng/mL (0.0-0.045)
--- NOTE | 2019-08-01 17:18 | RAD REPORT ---
EXAM DESCRIPTION: US - CP - 08/01/2019 5:10 pm CLINICAL HISTORY: Slurred speech;Aphasia COMPARISON: Brain Wo Cont dated 08/01/2019 TECHNIQUE: Real-time sonographic evaluation of bilateral carotid and vertebral systems was performed . Gonzalez scale and Doppler interrogation were performed with waveform tracing bilaterally. FINDINGS: Normal high resistance waveforms are noted in both external carotid arteries. The common c arotid arteries and internal carotid arteries show normal low resistance waveforms. Mild plaquing changes are present in the right internal carotid artery. No luminal narrowing seen. Pe ak systolic and end diastolic velocity values and the ICA/CCA ratios are in the non-hemodynamically s ignificant range. No dissection identified. Antegrade flow seen in both vertebral arteries. Velocity values and ratios were recorded and are retained in the patient's imaging records. IMPRESSION: Minimal plaquing in the right internal carotid artery. No evidence of a hemodynamically significant stenosis. No dissection.
--- NOTE | 2019-08-01 17:19 | RAD REPORT ---
EXAM DESCRIPTION: RAD - Chest Single View - 08/01/2019 5:12 pm CLINICAL HISTORY: COUGH COMPARISON: Portable December 2018, portable August 2017 TECHNIQUE: AP portable chest image was obtained 08/01/2019 5:12 pm . FINDINGS: Lung volumes are low compared to the prior study. Increased opacification in the medial le ft base is probably atelectasis rather than an acute infiltrate. Interstitial pattern is prominent du e to shallow inspiration potentially masking minimal edema or infiltrate. Heart and vasculature are normal. No measurable pleural effusion and no pneumothorax. No acute bony abnormality seen. No acute aortic findings suspected. IMPRESSION: No focal mass or consolidations seen. Low lung volume exam situated skin interstitial markings throughout both lung fitzgerald and more focally in the medial left base. Minimal infiltrate or edema potentially masked.
--- NOTE | 2019-08-01 17:26 | EDPHYS ---
Physician Documentation [facility] Name: Bubba Ahumada Age: 53 yrs Sex: Male : 1965 Arrival Date: 08/01/2019 Time: 15:41 Bed 7 Private MD: ED Physician Francisco Garcia HPI: 07/31 15:56 This 53 yrs old Male presents to ER via EMS with complaints of Altered Mental sandeep Status, Low Blood Sugar. 15:56 The patient presents with confusion, dysphasia. Onset: The symptoms/episode sandeep began/occurred at an unknown time. Possible causes: CVA or TIA, drug use. Associated signs and symptoms: The patient has no apparent associated signs or symptoms. Current symptoms: In the emergency department the patient's symptoms are unchanged from the initial presentation. Patient's baseline: Neuro: orientated to person, place, Motor: no deficits, Ambulation: walks without assistance, Speech: normal, The patient has a previous history of unk. The patient has not experienced similar symptoms in the past. Historical: - Allergies: 15:45 No Known Allergies; hb - Home Meds: 15:45 insulin 70/30 [Active]; hb - PMHx: 15:45 Diabetes - IDDM; Hypertension; hb - PSHx: 15:45 None; hb - Immunization history:: Adult Immunizations unknown. - Social history:: Smoking status: unknown. - Family history:: not pertinent. ROS: 15:56 Constitutional: Negative for fever, chills, and weight loss, Eyes: Negative for injury, sandeep pain, redness, and discharge, ENT: Negative for injury, pain, and discharge, Neck: Negative for injury, pain, and swelling, Cardiovascular: Negative for chest pain, palpitations, and edema, Respiratory: Negative for shortness of breath, cough, wheezing, and pleuritic chest pain, Abdomen/GI: Negative for abdominal pain, nausea, vomiting, diarrhea, and constipation, Back: Negative for injury and pain, : Negative for injury, bleeding, discharge, and swelling, MS/Extremity: Negative for injury and deformity, Skin: Negative for injury, rash, and discoloration, Psych: Negative for depression, anxiety, suicide ideation, homicidal ideation, and hallucinations, Allergy/Immunology: Negative for hives, rash, and allergies, Endocrine: Negative for neck swelling, polydipsia, polyuria, polyphagia, and marked weight changes, Hematologic/Lymphatic: Negative for swollen nodes, abnormal bleeding, and unusual bruising. 15:56 Neuro: Positive for altered mental status, speech changes. Exam: 15:56 Constitutional: This is a well developed, well nourished patient who is awake, alert, sandeep and in no acute distress. Head/Face: Normocephalic, atraumatic. Eyes: Pupils equal round and reactive to light, extra-ocular motions intact. Lids and lashes normal. Conjunctiva and sclera are non-icteric and not injected. Cornea within normal limits. Periorbital areas with no swelling, redness, or edema. ENT: Nares patent. No nasal discharge, no septal abnormalities noted. Tympanic membranes are normal and external auditory canals are clear. Oropharynx with no redness, swelling, or masses, exudates, or evidence of obstruction, uvula midline. Mucous membranes moist. Neck: Trachea midline, no thyromegaly or masses palpated, and no cervical lymphadenopathy. Supple, full range of motion without nuchal rigidity, or vertebral point tenderness. No Meningismus. Chest/axilla: Normal chest wall appearance and motion. Nontender with no deformity. No lesions are appreciated. Cardiovascular: Regular rate and rhythm with a normal S1 and S2. No gallops, murmurs, or rubs. Normal PMI, no JVD. No pulse deficits. Respiratory: Lungs have equal breath sounds bilaterally, clear to auscultation and percussion. No rales, rhonchi or wheezes noted. No increased work of breathing, no retractions or nasal flaring. Abdomen/GI: Soft, non-tender, with normal bowel sounds. No distension or tympany. No guarding or rebound. No evidence of tenderness throughout. Back: No spinal tenderness. No costovertebral tenderness. Full range of motion. Male : Normal genitalia with no discharge or lesions. Skin: Warm, dry with normal turgor. Normal color with no rashes, no lesions, and no evidence of cellulitis. MS/ Extremity: Pulses equal, no cyanosis. Neurovascular intact. Full, normal range of motion. Psych: Awake, alert, with orientation to person, place and time. Behavior, mood, and affect are within normal limits. 15:56 Neuro: Orientation: unable to test, Mentation: confused, Memory: unable to test, Cranial nerves: grossly normal, is grossly normal based on the patient's age, no acute changes, Cerebellar function: is grossly normal, is grossly normal based on the patient's age, no acute changes, Motor: is normal, is grossly normal based on the patient's age, no acute changes, moves all fours, Gait: not tested. seizure activity, is not displayed by the patient. Vital Signs: 15:41 BP 149 / 88; Pulse 88; Resp 16; Temp 97.9; Pulse Ox 100% ; Weight 81.65 kg; Height 5 hb ft. 10 in. (177.80 cm); Pain 0/10; 17:00 BP 148 / 78; Pulse 86; Resp 16; Pulse Ox 100% on R/A; hb 15:41 Body Mass Index 25.83 (81.65 kg, 177.80 cm) hb MDM: 15:41 Patient medically screened. [facility] 16:00 Data reviewed: vital signs, nurses notes, lab test result(s), EKG, radiologic studies, [facility] MRI, plain films. 04 15:56 Order name: Basic Metabolic Panel; Complete Time: 17:13 sandeep 07/31 15:56 Order name: CBC with Diff; Complete Time: 17:00 sandeep 07/31 15:56 Order name: LFT's; Complete Time: 17:13 sandeep 07/31 15:56 Order name: Magnesium; Complete Time: 17:13 snadeep 07/31 15:56 Order name: NT PRO-BNP; Complete Time: 17:13 sandeep 07/31 15:56 Order name: PT-INR; Complete Time: 17:00 sandeep 07/31 15:56 Order name: Troponin (emerg Dept Use Only); Complete Time: 17:13 sandeep 07/31 15:56 Order name: Acetaminophen; Complete Time: 17:13 sandeep 07/31 15:56 Order name: ETOH Level; Complete Time: 17:13 sandeep 07/31 15:56 Order name: Ptt, Activated; Complete Time: 17:00 sandeep 07/31 15:56 Order name: Salicylate; Complete Time: 17:00 sandeep 07/31 15:56 Order name: Urine Drug Screen; Complete Time: 17:00 sandeep 07/31 16:02 Order name: Glucose, Ancillary Testing; Complete Time: 17:00 EDMS 07/31 16:24 Order name: Urine Dipstick--Ancillary (enter results) 07/31 15:56 Order name: XRAY Chest (1 view) [facility] 07/31 15:56 Order name: Cardiac monitoring; Complete Time: 17:39 [facility] 07/31 15:56 Order name: EKG - Nurse/Tech; Complete Time: 17:39 [facility] 07/31 15:56 Order name: IV Saline Lock; Complete Time: 16:09 [facility] 07/31 15:56 Order name: Labs collected and sent; Complete Time: 16:09 [facility] 07/31 15:56 Order name: O2 Per Protocol; Complete Time: 16:09 [facility] 07/31 15:56 Order name: O2 Sat Monitoring; Complete Time: 16:09 [facility] 07/31 16:01 Order name: US Carotid Artery Bilateral; Complete Time: 17:20 [facility] 07/31 16:03 Order name: Brain Wo Cont; Complete Time: 17:00 [facility] 07/31 15:56 Order name: Urine Dipstick-Ancillary (obtain specimen); Complete Time: 16:09 [facility] Administered Medications: 16:10 Drug: NS 0.9% 1000 ml Route: IV; Rate: 1 bolus; Site: right antecubital; hb 17:39 Follow up: Response: No adverse reaction; IV Status: Completed infusion; IV Intake: hb 1000ml 16:10 Drug: foLIC Acid 1 mg Route: IVPB; Site: right antecubital; hb 17:39 Follow up: IV Status: Completed infusion hb 16:31 Drug: Ativan 2 mg Route: IVP; Site: right antecubital; hb 17:31 Follow up: Response: No adverse reaction sv 17:38 Not Given (Patient Refused): Aspirin Chewable Tablet 324 mg PO once; 81 mg tablets x 4 hb 17:39 Not Given (Patient Refused): Thiamine 100 mg IV at bolus once hb Point of Care Testing: Blood Glucose: 15:50 Blood Glucose: 337 mg/dL; hb Ranges: Critical Glucose Levels:Adult <50 mg/dl or >400 mg/dl <40 mg/dl or >180 mg/dl Disposition: 08/01/19 17:25 Discharged to Home. Impression: Type 1 diabetes mellitus, Tobacco use, Tobacco abuse counseling, Altered mental status, unspecified. - Condition is Stable. - Discharge Instructions: Confusion, Type 1 Diabetes Mellitus, Diagnosis, Adult, Steps to Quit Smoking, Smoking Hazards, Stroke Prevention, Health Maintenance, Male, Diabetes Mellitus and Food, Steps to Quit Smoking, [id number], Aspirin and Your Heart, Type 1 Diabetes Mellitus, Self Care, Adult, Type 1 Diabetes Mellitus, Diagnosis, Adult, [id number], Type 1 Diabetes Mellitus, Self Care, Adult, [id number]. - Medication Reconciliation Form, Thank You Letter, Antibiotic Education, Prescription Opioid Use form. - Follow up: Private Physician; When: 2 - 3 days; Reason: Recheck today's complaints, Continuance of care, Re-evaluation by your physician. Follow up: Jb Ramachandran MD; When: 2 - 3 days; Reason: Recheck today's complaints, Re-evaluation by your physician. - Problem is new. - Symptoms have improved. Signatures: Dispatcher [employer] [facility] Francisco Garcia MD MD cha Baxter, Heather, RN RN Amanda New RN Corrections: (The following items were deleted from the chart) 16:03 15:58 MR STROKE PROTOCOL+MRI.RAD.BRZ ordered. [facility] 17:42 17:25 08/01/2019 17:25 Discharged to Home. Impression: Type 1 diabetes mellitus; hb Tobacco use; Tobacco abuse counseling; Altered mental status, unspecified. Condition is Stable. Forms are Medication Reconciliation Form, Thank You Letter, Antibiotic Education, Prescription Opioid Use. Follow up: Private Physician; When: 2 - 3 days; Reason: Recheck today's complaints, Continuance of care, Re-evaluation by your physician. Follow up: Jb Ramachandran; When: 2 - 3 days; Reason: Recheck today's complaints, Re-evaluation by your physician. Problem is new. Symptoms have improved. sandeep
--- NOTE | 2019-08-01 17:26 | ER ---
Nurse's Notes [facility] Name: Bubba Ahumada Age: 53 yrs Sex: Male : 1965 Arrival Date: 08/01/2019 Time: 15:41 Bed 7 Private MD: Diagnosis: Type 1 diabetes mellitus;Tobacco use;Tobacco abuse counseling;Altered mental status, unspecified Presentation: 07/31 15:41 Chief complaint: EMS states: Friend called EMS for low blood sugar. On scene BGL 40, hb improved to 76 after oral glucose x 1 but pt remained altered. BGL 236 after D10, pt remained altered. Hx of DM1, not compliant with blood sugar checks and will self administer insulin randomly. Coronavirus screen: Proceed with normal triage. Ebola Screen: No symptoms or risks identified at this time. Initial Sepsis Screen: Does the patient meet any 2 criteria? Altered Mental Status. Does the patient have a suspected source of infection? No. Patient's initial sepsis screen is negative. Risk Assessment: Do you want to hurt yourself or someone else? Patient reports no desire to harm self or others. Onset of symptoms was August 01, 2019. 15:41 Method Of Arrival: EMS: [facility] hb 15:41 Acuity: REED 2 hb Triage Assessment: 15:45 General: Appears in no apparent distress. Behavior is calm, cooperative. Pain: Denies hb pain. EENT: No signs and/or symptoms were reported regarding the EENT system. Neuro: Level of Consciousness is awake, obeys commands, confused, Oriented to person. Cardiovascular: Capillary refill < 3 seconds Patient's skin is warm and dry. Respiratory: Airway is patent Respiratory effort is even, unlabored, Respiratory pattern is regular, symmetrical. GI: No signs and/or symptoms were reported involving the gastrointestinal system. : No signs and/or symptoms were reported regarding the genitourinary system. Derm: Skin is pink, warm \T\ dry. Musculoskeletal: No signs and/or symptoms reported regarding the musculoskeletal system. Historical: - Allergies: 15:45 No Known Allergies; hb - Home Meds: 15:45 insulin 70/30 [Active]; hb - PMHx: 15:45 Diabetes - IDDM; Hypertension; hb - PSHx: 15:45 None; hb - Immunization history:: Adult Immunizations unknown. - Social history:: Smoking status: unknown. - Family history:: not pertinent. Screenin:43 Abuse screen: Denies threats or abuse. Denies injuries from another. Nutritional sv screening: No deficits noted. Tuberculosis screening: No symptoms or risk factors identified. Fall Risk None identified. Assessment: 15:46 General: see triage assessment. hb 15:50 Reassessment: Dr Garcia at the bedside. sv 16:12 Reassessment: Pt to MRI via wheelchair. hb 17:25 Reassessment: Patient appears in no apparent distress at this time. Patient and/or hb family updated on plan of care and expected duration. Pain level reassessed. Vital Signs: 15:41 BP 149 / 88; Pulse 88; Resp 16; Temp 97.9; Pulse Ox 100% ; Weight 81.65 kg; Height 5 hb ft. 10 in. (177.80 cm); Pain 0/10; 17:00 BP 148 / 78; Pulse 86; Resp 16; Pulse Ox 100% on R/A; hb 15:41 Body Mass Index 25.83 (81.65 kg, 177.80 cm) hb ED Course: 15:41 Patient arrived in ED. hb 15:41 Francisco Garcia MD is Attending Physician. sandeep 15:43 Arm band placed on. sv 15:43 Patient has correct armband on for positive identification. Bed in low position. Call sv light in reach. Pulse ox on. NIBP on. 15:44 Triage completed. hb 15:50 Aleah Walter, RN is Primary Nurse. hb 16:00 Inserted saline lock: 20 gauge in right forearm, using aseptic technique. Blood sv collected. Flushed right forearm with 5 ml normal saline. 16:13 Patient moved to MRI via wheelchair. sv 16:32 Brain Wo Cont In Process Unspecified. EDMS 17:10 US Carotid Artery Bilateral In Process Unspecified. EDMS 17:11 XRAY Chest (1 view) In Process Unspecified. EDMS 17:23 Jb Ramachandran MD is Referral Physician. sandeep 17:41 No provider procedures requiring assistance completed. IV discontinued, intact, hb bleeding controlled, No redness/swelling at site. Pressure dressing applied. Administered Medications: 16:10 Drug: NS 0.9% 1000 ml Route: IV; Rate: 1 bolus; Site: right antecubital; hb 17:39 Follow up: Response: No adverse reaction; IV Status: Completed infusion; IV Intake: hb 1000ml 16:10 Drug: foLIC Acid 1 mg Route: IVPB; Site: right antecubital; hb 17:39 Follow up: IV Status: Completed infusion hb 16:31 Drug: Ativan 2 mg Route: IVP; Site: right antecubital; hb 17:31 Follow up: Response: No adverse reaction sv 17:38 Not Given (Patient Refused): Aspirin Chewable Tablet 324 mg PO once; 81 mg tablets x 4 hb 17:39 Not Given (Patient Refused): Thiamine 100 mg IV at bolus once hb Point of Care Testing: Blood Glucose: 15:50 Blood Glucose: 337 mg/dL; hb Ranges: Intake: 17:39 IV: 1000ml; Total: 1000ml. hb Outcome: 17:25 Discharge ordered by . sandeep 17:41 Discharged to home ambulatory. hb 17:41 Condition: stable 17:41 Discharge instructions given to patient, Instructed on discharge instructions, follow up and referral plans. medication usage, Demonstrated understanding of instructions, follow-up care, medications. 17:42 Patient left the ED. hb Signatures: Dispatcher [employer] Amanda Metzger, RN RN Francisco Benson MD MD cha Baxter, Heather RN RN hb
[2019-08-01 17:30] LABS: Urine Blood NEGATIVE (NEG); Urine Glucose 2+ (NEG); Urine Protein NEGATIVE (NEG); Urine Specific Gravity >1.030 (1.005-1.030)
[2019-08-01 17:49] VITALS: TEMP 97.9; O2SAT 100
[2019-08-01 17:50] VITALS: BP 148/78
== END 2019-08-01 17:42 | disposition home or self-care (01) ==
LOC: ER 15:40
DX: E10.649 Type 1 diabetes mellitus with hypoglycemia without coma (principal); Z79.4 Long term (current) use of insulin; Z72.0 Tobacco use; Z71.6 Tobacco abuse counseling; I10 Essential (primary) hypertension
CPT/HCPCS: 36415; 70551; 71045; 80048; 80076; 80307; 80320; 80329; 81003; 82947; 83735; 83880; 84484; 85025; 85610; 85730; 93880; 96365; 96375; 99284; J7030

== ENCOUNTER 2019-10-20 14:15 | Emergency (ER) | payer SELFPAY ==
--- NOTE | 2019-10-20 14:41 | ER ---
Nurse's Notes [facility] Name: Bubba Ahumada Age: 54 yrs Sex: Male : 1965 Arrival Date: 10/20/2019 Time: 14:18 Bed 2 Private MD: Diagnosis: Presentation: 10/19 14:18 Chief complaint: EMS states: called out for low blood sugar, AMS initially A\T\Ox2, em family gave peanut butter sandwich and pt was starting to come back around, BGL 108 on scene, denies fever, cough or shortness of breath. Coronavirus screen: Proceed with normal triage. Patient denies a cough. Patient denies shortness of breath or difficulty breathing. Patient denies measured and/or subjective temperature greater than 100.4F prior to today's visit. Patient denies travel on a cruise ship or to a country the [facility] currently lists as an affected area. Patient denies contact with known and/or suspected case of COVID-19. Ebola Screen: Patient negative for fever greater than or equal to 101.5 degrees Fahrenheit, and additional compatible Ebola Virus Disease symptoms Patient denies exposure to infectious person. Patient denies travel to an Ebola-affected area in the 21 days before illness onset. No symptoms or risks identified at this time. Initial Sepsis Screen: Does the patient meet any 2 criteria? HR > 90 bpm. No. Patient's initial sepsis screen is negative. Does the patient have a suspected source of infection? No. Patient's initial sepsis screen is negative. Risk Assessment: Do you want to hurt yourself or someone else? Patient reports no desire to harm self or others. Onset of symptoms was October 20, 2019. 14:18 Method Of Arrival: EMS: [facility] em 14:18 Acuity: REED 3 em Historical: - Allergies: 14:22 No Known Allergies; em - Home Meds: 14:22 insulin 70/30 [Active]; em - PMHx: 14:22 Diabetes - IDDM; Hypertension; em - PSHx: 14:22 None; em - Immunization history:: Adult Immunizations up to date. - Social history:: Smoking status: Patient reports the use of cigarette tobacco products, smokes one-half pack cigarettes per day. Screenin:24 Abuse screen: Denies threats or abuse. Nutritional screening: No deficits noted. em Tuberculosis screening: No symptoms or risk factors identified. Fall Risk None identified. Assessment: 14:19 General: Appears in no apparent distress. comfortable, Behavior is calm, cooperative, em appropriate for age, Denies fever. Pain: Denies pain. Neuro: Level of Consciousness is awake, alert, obeys commands, Oriented to person, place, time, situation, Appropriate for age. Cardiovascular: Capillary refill < 3 seconds Patient's skin is warm and dry. Respiratory: Airway is patent Respiratory effort is even, unlabored, Respiratory pattern is regular, symmetrical. GI: Abdomen is flat, Patient currently denies nausea, vomiting. Derm: Skin is intact, is healthy with good turgor, Skin is pink, warm \T\ dry. Musculoskeletal: Capillary refill < 3 seconds, Range of motion: intact in all extremities. Vital Signs: 14:18 BP 148 / 81; Pulse 93; Resp 18; Temp 98.1; Pulse Ox 97% on R/A; Weight 70.31 kg; Height em 5 ft. 6 in. (167.64 cm); Pain 0/10; 14:18 Body Mass Index 25.02 (70.31 kg, 167.64 cm) em ED Course: 14:18 Patient arrived in ED. em 14:22 Triage completed. em 14:22 Arm band placed on. em 14:23 Balaji rAauz, RN is Primary Nurse. em 14:24 Patient has correct armband on for positive identification. Bed in low position. Call em light in reach. Adult w/ patient. Pulse ox on. NIBP on. 14:36 No provider procedures requiring assistance completed. Patient did not have IV access em during this emergency room visit. Administered Medications: No medications were administered Point of Care Testing: Blood Glucose: 14:23 Blood Glucose: 195 mg/dL; em Ranges: Outcome: 14:32 Eloped from patient exam room, before seeing physician Time discovered patient gone: em October 20, 2019 at 14:32 14:40 Patient left the ED. ss Signatures: Balaji Arauz, RN RN Radha Sheridan RN RN
[2019-10-20 14:51] VITALS: BP 148/81; TEMP 98.1; O2SAT 97
== END 2019-10-20 14:40 | disposition left against medical advice (07) ==
LOC: ER 14:15
DX: Z53.21 Procedure and treatment not carried out due to patient leaving prior to being seen by health care provider (principal)
CPT/HCPCS: 82947; 99283

== ENCOUNTER 2020-01-09 22:08 | Emergency (ER) | payer SELFPAY ==
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
[2020-01-10 00:44] VITALS: BP 139/80; TEMP 98.6; O2SAT 99
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
== END 2020-01-09 22:31 | disposition left against medical advice (07) ==
LOC: ER 22:08
DX: E11.649 Type 2 diabetes mellitus with hypoglycemia without coma (principal); V49.49XA Driver injured in collision with other motor vehicles in traffic accident, initial encounter; I10 Essential (primary) hypertension
CPT/HCPCS: 99283

== ENCOUNTER 2020-10-13 14:20 | Emergency (ER) | payer SELFPAY ==
--- OUTSIDE RECORDS SUMMARY | 2020-10-13 14:23 | XMS REPORT | Continuity of Care Document ---
:1965 Author Organization [facility] t Address [address] [place] [address] [place] [id number] Care Team Providers Name Role Phone Unavailable Unavailable Unavailable Problems This patient has no known problems. Allergies, Adverse Reactions, Alerts This patient has no known allergies or adverse reactions. Medications This patient has no known medications. Procedures This patient has no known procedures. Encounters Start End Encounter Admission Attending Care Care Encounter Source Date/Time Date/Time Type Type Clinicians Facility Department ID 2020-08-27 2020-08-27 Inpatient E [facility] CAR [id number] [facility] 22:57:00 22:57:00 2020-08-27 2020-08-27 Outpatient [facility] CHLOE [id number] [facility] 22:57:00 22:57:00 Results This patient has no known results.
[2020-10-13] MEDS ORDERED: D5 0.9 NS 1,000 ML IV ONE (14:42)
[2020-10-13] MEDS ORDERED: D50W 25 GM/50 ML SYRINGE IV ONE (14:42)
[2020-10-13 14:51] LABS: Absolute Lymphocytes (CBC) 1.8 K/uL (0.7-4.9); Basophils % 0.5 % (0-1.3); Hematocrit 49.3 % (39.6-49.0); Lymphocytes % 18.7 % (15.3-44.8); MPV 7.9 fL (7.6-11.3); RBC Red Blood Cell Count 5.74 M/uL (4.33-5.43)
[2020-10-13 15:06] LABS: ALT/SGPT 39 U/L (12-78); AST/SGOT 24 U/L (15-37); Albumin 3.8 g/dL (3.4-5.0); Alkaline Phosphatase 142 U/L (45-117); BUN Blood Urea Nitrogen 18 mg/dL (7-18); Bicarbonate 23 mmol/L (21-32); Bilirubin Direct 0.2 mg/dL (0-0.2); Bilirubin Total 0.8 mg/dL (0.2-1.0); Lipase 23 U/L (73-393); Potassium 3.4 mmol/L (3.5-5.1); Protein, Total 8.4 g/dL (6.4-8.2); Sodium Level 140 mmol/L (136-145)
[2020-10-13 15:07] LABS: Glucose Level 47 mg/dL (74-106)
[2020-10-13 15:51] LABS: Urine Blood Negative (Negative); Urine Glucose 2+ (Negative); Urine Protein Negative (Negative); Urine Specific Gravity >=1.030 (1.005-1.030)
--- NOTE | 2020-10-13 17:37 | ER ---
Nurse's Notes [facility] Name: Bubba Ahumada Age: 55 yrs Sex: Male : 1965 Arrival Date: 10/13/2020 Time: 14:21 Bed 7 Private MD: Diagnosis: Hypoglycemia, unspecified Presentation: 10/13 14:48 Chief complaint: EMS states: "pt having low blood sugar today. BGL of 23. 22 G started jd3 to left forearm and 250 ml of D10 given. IV that infiltrated as we rolled in. pt went from A\\T\\O X 1 to now awake and answering questions, A\\T\\O X 3.". Coronavirus screen: At this time, the client does not indicate any symptoms associated with coronavirus-19. Ebola Screen: Patient negative for fever greater than or equal to 101.5 degrees Fahrenheit, and additional compatible Ebola Virus Disease symptoms. Initial Sepsis Screen: Does the patient meet any 2 criteria? No. Patient's initial sepsis screen is negative. Does the patient have a suspected source of infection? No. Patient's initial sepsis screen is negative. Risk Assessment: Do you want to hurt yourself or someone else? Patient reports no desire to harm self or others. Onset of symptoms was October 13, 2020. 14:48 Method Of Arrival: EMS: [facility] 14:48 Acuity: REED 2 jd3 Triage Assessment: 17:58 General: Behavior is calm, cooperative, appropriate for age. jd3 Historical: - Allergies: 14:51 No Known Allergies; jd3 - Home Meds: 14:51 insulin 70/30 [Active]; jd3 - PMHx: 14:51 Diabetes - IDDM; Hypertension; jd3 - Immunization history:: Adult Immunizations unknown. - Social history:: Smoking status: Patient reports the use of cigarette tobacco products. Screenin:56 Abuse screen: Denies threats or abuse. Nutritional screening: No deficits noted. jd3 Tuberculosis screening: No symptoms or risk factors identified. Fall Risk IV access (20 points). Ambulatory Aid- None/Bed Rest/Nurse Assist (0 pts). Gait- Normal/Bed Rest/Wheelchair (0 pts) Mental Status- Overestimates/Forgets Limitations (15 pts.). Total Winters Fall Scale indicates Low Risk Score (25-44 pts). Fall prevention measures have been instituted. Side Rails Up X 2 Placed close to Nursing Station Frequent Obs/Assesments occuring. Assessment: 14:52 General: Appears in no apparent distress. Pain: Denies pain. Neuro: Level of jd3 Consciousness is awake, alert, obeys commands, confused, Oriented to person, place. Cardiovascular: Denies chest pain, Capillary refill < 3 seconds Patient's skin is warm and dry. Respiratory: Airway is patent Respiratory effort is even, unlabored, Respiratory pattern is regular, symmetrical, Denies cough, shortness of breath. GI: No signs and/or symptoms were reported involving the gastrointestinal system. Abdomen is round non-distended, Abd is soft and non tender X 4 quads. Patient currently denies diarrhea, nausea, vomiting. : No signs and/or symptoms were reported regarding the genitourinary system. EENT: No signs and/or symptoms were reported regarding the EENT system. Derm: Skin is intact, Skin is dry, Skin is normal, Skin temperature is warm. Musculoskeletal: Circulation, motion, and sensation intact. Range of motion: intact in all extremities. 15:48 Reassessment: Patient appears in no apparent distress at this time. Patient and/or jd3 family updated on plan of care and expected duration. Pain level reassessed. Patient is alert, oriented x 3, equal unlabored respirations, skin warm/dry/pink. Patient states feeling better. Neuro: Level of Consciousness is awake, alert, obeys commands, Oriented to person, place, time, situation. 16:50 Reassessment: Patient appears in no apparent distress at this time. Patient and/or jd3 family updated on plan of care and expected duration. Pain level reassessed. Patient is alert, oriented x 3, equal unlabored respirations, skin warm/dry/pink. Patient denies pain at this time. Patient states feeling better. 17:45 Reassessment: Patient appears in no apparent distress at this time. Patient and/or jd3 family updated on plan of care and expected duration. Pain level reassessed. Patient is alert, oriented x 3, equal unlabored respirations, skin warm/dry/pink. Patient denies pain at this time. Patient states feeling better. Patient states symptoms have improved. Vital Signs: 14:51 BP 115 / 77; Pulse 77; Resp 17 S; Temp 97.9(TE); Pulse Ox 97% on R/A; Weight 79.38 kg jd3 (R); Height 5 ft. 9 in. (175.26 cm) (R); Pain 0/10; 15:48 BP 125 / 83; Pulse 75; Resp 17 S; Pulse Ox 97% on R/A; jd3 17:30 BP 129 / 84; Pulse 73; Resp 16 S; Pulse Ox 97% on R/A; jd3 14:51 Body Mass Index 25.84 (79.38 kg, 175.26 cm) jd3 ED Course: 14:21 Patient arrived in ED. ds1 14:23 Jesus Rothman PA is PHCP. [facility] 14:23 David Nassar MD is Attending Physician. [facility] 14:23 Beni Mauro RN is Primary Nurse. jd3 14:30 Inserted saline lock: 20 gauge in left forearm, using aseptic technique. Blood jd3 collected. 14:51 Triage completed. jd3 14:52 Arm band placed on. jd3 14:56 Patient has correct armband on for positive identification. Bed in low position. Call jd3 light in reach. Side rails up X2. Pulse ox on. NIBP on. 16:50 No provider procedures requiring assistance completed. jd3 17:59 IV discontinued, intact, bleeding controlled, No redness/swelling at site. Pressure jd3 dressing applied. Administered Medications: 14:44 Drug: D5-NS 1000 ml Route: IV; Rate: 125 ml/hr; Site: left forearm; jd3 15:44 Follow up: Response: No adverse reaction; IV Status: Order to discontinue infusion jd3 14:44 Drug: D50W 50 ml Route: IVP; Site: left forearm; jd3 15:40 Follow up: Response: No adverse reaction jd3 14:47 CANCELLED (Duplicate Order): D10 in Water [2 mL/kg] 1 amp IVP once jd3 14:47 CANCELLED (Duplicate Order): D5-NS 1000 ml IV at 125 ml/hr continuous jd3 Outcome: 17:37 Discharge ordered by . jm 17:55 Discharged to home ambulatory, with friend. jd3 17:55 Condition: stable 17:55 Discharge instructions given to patient, Instructed on discharge instructions, follow up and referral plans. Demonstrated understanding of instructions, follow-up care. 17:57 Patient left the ED. jd3 Signatures: Jesus Rothman PA PA jmm Sanford, Demi ds1 Beni Mauro RN RN jd3 Corrections: (The following items were deleted from the chart) 14:44 14:44 D5-NS 1000 ml IV at 125 ml/hr in right forearm jd3 jd3
--- NOTE | 2020-10-13 17:37 | EDPHYS ---
Physician Documentation [facility] Name: Bubba Ahumada Age: 55 yrs Sex: Male : 1965 Arrival Date: 10/13/2020 Time: 14:21 Bed 7 Private MD: ED Physician David Nassar HPI: 10/13 15:04 This 55 yrs old Male presents to ER via EMS with complaints of ams. jmm 15:04 The patient presents with decreased mental status. Onset: The symptoms/episode jmm began/occurred today. Possible causes: low blood sugar, the patient uses insulin. Associated signs and symptoms: Pertinent negatives: abdominal pain, agitation, vomiting. Current symptoms: In the emergency department the patient's symptoms have improved, mildly. Patient's baseline: Neuro: alert and fully oriented, Motor: no deficits, Ambulation: walks without assistance, Speech: normal. The patient has experienced similar episodes in the past, several times. Historical: - Allergies: 14:51 No Known Allergies; jd3 - Home Meds: 14:51 insulin 70/30 [Active]; jd3 - PMHx: 14:51 Diabetes - IDDM; Hypertension; jd3 - Immunization history:: Adult Immunizations unknown. - Social history:: Smoking status: Patient reports the use of cigarette tobacco products. ROS: 15:04 Constitutional: Negative for fever, chills, and weight loss, Cardiovascular: Negative jmm for chest pain, palpitations, and edema, Respiratory: Negative for shortness of breath, cough, wheezing, and pleuritic chest pain. 15:04 Neuro: Positive for altered mental status. 15:04 All other systems are negative. Exam: 15:04 Constitutional: This is a well developed, well nourished patient who is awake, alert, jmm and in no acute distress. Head/Face: atraumatic. Eyes: EOMI, no conjunctival erythema appreciated ENT: Moist Mucus Membranes Neck: Trachea midline, Supple Chest/axilla: Normal chest wall appearance and motion. Cardiovascular: Regular rate and rhythm. No edema appreciated Respiratory: Normal respirations, no respiratory distress appreciated Abdomen/GI: Non distended, soft Back: Normal ROM Skin: General appearance color normal MS/ Extremity: Moves all extremities, no obvious deformities appreciated, no edema noted to the lower extremities Neuro: Awake and alert, normal gait Psych: Behavior is normal, Mood is normal, Patient is cooperative and pleasant Vital Signs: 14:51 BP 115 / 77; Pulse 77; Resp 17 S; Temp 97.9(TE); Pulse Ox 97% on R/A; Weight 79.38 kg [facility] (R); Height 5 ft. 9 in. (175.26 cm) (R); Pain 0/10; 15:48 BP 125 / 83; Pulse 75; Resp 17 S; Pulse Ox 97% on R/A; jd3 17:30 BP 129 / 84; Pulse 73; Resp 16 S; Pulse Ox 97% on R/A; jd3 14:51 Body Mass Index 25.84 (79.38 kg, 175.26 cm) [facility] MDM: 14:25 Patient medically screened. [facility] 17:36 Data reviewed: vital signs, nurses notes. Counseling: I had a detailed discussion with jos the patient and/or guardian regarding: the historical points, exam findings, and any diagnostic results supporting the discharge/admit diagnosis, lab results, the need for outpatient follow up, to return to the emergency department if symptoms worsen or persist or if there are any questions or concerns that arise at home. Refusal of service: The patient/guardian displays adequate decision making capability and despite a detailed discussion of alternatives, benefits, risks, and consequences refuses: Admission to the hospital for further work-up and treatment. ED course: Patient is now alert and non toxic in appearance. . 10/13 14:24 Order name: Glucose; Complete Time: 15:08 [facility] 10/13 14:24 Order name: glucometer results - FOR PT WITH NO ID; Complete Time: 16:13 [facility] 10/13 14:25 Order name: Basic Metabolic Panel; Complete Time: 15:08 [facility] 10/13 14:25 Order name: CBC with Diff; Complete Time: 15:22 [facility] 10/13 14:25 Order name: Hepatic Function; Complete Time: 15:08 [facility] 10/13 14:25 Order name: Lipase; Complete Time: 15:08 [facility] 10/13 14:25 Order name: IV Saline Lock; Complete Time: 14:43 [facility] 10/13 15:51 Order name: Urine Dipstick-Ancillary [facility] 10/13 15:58 Order name: Glucose, Ancillary Testing; Complete Time: 16:13 [facility] 10/13 17:01 Order name: Glucose, Ancillary Testing; Complete Time: 17:02 [facility] 10/13 14:25 Order name: Labs collected and sent; Complete Time: 14:43 [facility] 10/13 14:25 Order name: Urine Dipstick-Ancillary (obtain specimen); Complete Time: 15:44 [facility] Administered Medications: 14:44 Drug: D5-NS 1000 ml Route: IV; Rate: 125 ml/hr; Site: left forearm; jd3 15:44 Follow up: Response: No adverse reaction; IV Status: Order to discontinue infusion jd3 14:44 Drug: D50W 50 ml Route: IVP; Site: left forearm; jd3 15:40 Follow up: Response: No adverse reaction jd3 14:47 CANCELLED (Duplicate Order): D10 in Water [2 mL/kg] 1 amp IVP once jd3 14:47 CANCELLED (Duplicate Order): D5-NS 1000 ml IV at 125 ml/hr continuous jd3 Disposition: 10/13/20 17:37 Discharged to Home. Impression: Hypoglycemia, unspecified. - Condition is Stable. - Discharge Instructions: Hypoglycemia. - Medication Reconciliation Form, Thank You Letter, Antibiotic Education, Prescription Opioid Use form. - Follow up: Private Physician; When: 2 - 3 days; Reason: Recheck today's complaints, Continuance of care, Re-evaluation by your physician. Signatures: Dispatcher [employer] [facility] Jesus Rothman PA PA jmm Davies, Jonathon RN RN jd3 Corrections: (The following items were deleted from the chart) 14:47 14:44 D10 in Water [2 mL/kg] 1 amp IVP once ordered. [facility] jd3 14:47 14:44 D5-NS 1000 ml IV at 125 ml/hr continuous ordered. [facility] jd3 17:57 17:37 10/13/2020 17:37 Discharged to Home. Impression: Hypoglycemia, unspecified. jd3 Condition is Stable. Forms are Medication Reconciliation Form, Thank You Letter, Antibiotic Education, Prescription Opioid Use. Follow up: Private Physician; When: 2 - 3 days; Reason: Recheck today's complaints, Continuance of care, Re-evaluation by your physician. jos
[2020-10-13 18:05] VITALS: TEMP 97.9; O2SAT 97
[2020-10-13 18:06] VITALS: BP 125/83
== END 2020-10-13 17:57 | disposition home or self-care (01) ==
LOC: ER 14:20
DX: E11.649 Type 2 diabetes mellitus with hypoglycemia without coma (principal); Z79.4 Long term (current) use of insulin; I10 Essential (primary) hypertension; Z72.0 Tobacco use
CPT/HCPCS: 36415; 80048; 80076; 81003; 82947; 83690; 85025; 96365; 96375; 99284; J7042

== ENCOUNTER 2021-02-22 13:40 | Emergency (ER) | payer SELFPAY ==
[2021-02-22 14:24] LABS: Urine Blood Negative (Negative); Urine Glucose Negative (Negative); Urine Protein Negative (Negative)
[2021-02-22 14:28] LABS: Absolute Lymphocytes (CBC) 1.6 K/uL (0.7-4.9); Basophils % 0.6 % (0-1.3); Hematocrit 48.3 % (39.6-49.0); Lymphocytes % 20.3 % (15.3-44.8); MPV 7.7 fL (7.6-11.3); RBC Red Blood Cell Count 5.48 M/uL (4.33-5.43)
[2021-02-22 14:52] LABS: ALT/SGPT 35 U/L (12-78); Albumin 3.6 g/dL (3.4-5.0); Alkaline Phosphatase 140 U/L (45-117); BUN Blood Urea Nitrogen 14 mg/dL (7-18); Bicarbonate 26 mmol/L (21-32); Bilirubin Direct < 0.1 mg/dL (0-0.2); Bilirubin Total 0.4 mg/dL (0.2-1.0); Glucose Level 82 mg/dL (74-106); Lipase 70 U/L (73-393); Sodium Level 142 mmol/L (136-145)
[2021-02-22 15:02] LABS: AST/SGOT 25 U/L (15-37)
--- NOTE | 2021-02-22 15:26 | ER ---
Nurse's Notes [facility] Name: Bubba Ahumada Age: 55 yrs Sex: Male : 1965 Arrival Date: 02/22/2021 Time: 13:42 Bed 15 Private MD: Diagnosis: Other hypoglycemia Presentation: 02/22 14:00 Chief complaint: EMS states: Pt. brought by EMS due to patient being hypoglycemic at jt3 home. Pt. was unresponsive. Responded to D10 in the field. Alert and oriented x4 on arrival. Blood sugar 85. Denies pain or dizziness. Coronavirus screen: Vaccine status: Patient reports receiving the 2nd dose of the covid vaccine. Ebola Screen: Patient negative for fever greater than or equal to 101.5 degrees Fahrenheit, and additional compatible Ebola Virus Disease symptoms Patient denies exposure to infectious person. Patient denies travel to an Ebola-affected area in the 21 days before illness onset. Initial Sepsis Screen: Does the patient meet any 2 criteria? No. Patient's initial sepsis screen is negative. Does the patient have a suspected source of infection? No. Patient's initial sepsis screen is negative. Risk Assessment: Do you want to hurt yourself or someone else? Patient reports no desire to harm self or others. Onset of symptoms was February 22, 2021. 14:00 Method Of Arrival: EMS: [facility] j 14:00 Acuity: REED 3 jt3 Triage Assessment: 14:03 General: Appears in no apparent distress. Behavior is calm, cooperative. Pain: Denies jt3 pain. Neuro: No deficits noted. Historical: - Allergies: 14:03 No Known Allergies; jt3 - Immunization history:: Adult Immunizations up to date. - Social history:: Smoking status: Patient reports the use of cigarette tobacco products. - Family history:: not pertinent. Screenin:04 Abuse screen: Denies threats or abuse. Denies injuries from another. Nutritional jt3 screening: No deficits noted. Tuberculosis screening: No symptoms or risk factors identified. Fall Risk None identified. Assessment: 14:04 Neuro: No deficits noted. Cardiovascular: No deficits noted. Respiratory: No deficits jt3 noted. 15:41 Reassessment: Patient appears in no apparent distress at this time. Patient and/or iw family updated on plan of care and expected duration. Pain level reassessed. Patient is alert, oriented x 3, equal unlabored respirations, skin warm/dry/pink. pt requested to be discharged, [id number], pt given a sandwich for home, bus pass given Patient states feeling better. Patient states symptoms have improved. Vital Signs: 14:00 BP 143 / 86; Pulse 72; Resp 17; Temp 97.8; Pulse Ox 100% ; Weight 70.76 kg; Height 5 jt3 ft. 8 in. (172.72 cm); 14:00 Body Mass Index 23.72 (70.76 kg, 172.72 cm) jt3 ED Course: 13:42 Patient arrived in ED. iw 13:44 David Nassar MD is Attending Physician. sam 14:00 Bertrand Francis, RN is Primary Nurse. jt3 14:03 Triage completed. jt3 14:03 Arm band placed on right wrist. jt3 14:04 Patient has correct armband on for positive identification. Bed in low position. Side jt3 rails up X2. 14:04 No provider procedures requiring assistance completed. Inserted saline lock: 20 gauge jt3 in left antecubital area, using aseptic technique. 14:20 Call light in reach. Warm blanket given. chipper feeder on. Pulse ox on. NIBP on. dh4 15:41 Patient did not have IV access during this emergency room visit. iw Administered Medications: No medications were administered Outcome: 15:25 Discharge ordered by . [facility] 15:43 Discharged to home ambulatory. iw 15:43 Condition: good 15:43 Discharge instructions given to patient, Instructed on discharge instructions, follow up and referral plans. Demonstrated understanding of instructions, follow-up care. 15:43 Patient left the ED. iw Signatures: Luna Cunningham, RN RN iw David Nassar MD MD ma2 Huhn, Donald [facility] Bertrand Francis RN RN j
--- NOTE | 2021-02-22 15:26 | EDPHYS ---
Physician Documentation [facility] Name: Bubba Ahumada Age: 55 yrs Sex: Male : 1965 Arrival Date: 02/22/2021 Time: 13:42 Bed 15 Private MD: ED Physician David Nassar HPI: 02/22 14:09 This 55 yrs old Male presents to ER via EMS with complaints of hypoglycemia . ma2 14:09 The patient presents with confusion. Onset: The symptoms/episode began/occurred ma2 gradually, 1 hour(s) ago. Associated signs and symptoms: Pertinent negatives: agitation, ataxia, blurred vision, chest pain, combativeness, confusion, diaphoresis, diarrhea, dizziness, headache. The patient has experienced similar episodes in the past. blood sugar was low, given D50 by ems and was back to normal, takes insuline as usual did not eat today. he does not take oral hypoglycemic . Historical: - Allergies: 14:03 No Known Allergies; jt3 - Immunization history:: Adult Immunizations up to date. - Social history:: Smoking status: Patient reports the use of cigarette tobacco products. - Family history:: not pertinent. ROS: 14:09 Constitutional: Negative for fever, chills, and weight loss. ma2 14:09 All other systems are negative. Exam: 14:09 Constitutional: This is a well developed, well nourished patient who is awake, alert, ma2 and in no acute distress. Head/Face: Normocephalic, atraumatic. Eyes: Pupils equal round and reactive to light, extra-ocular motions intact. Lids and lashes normal. Conjunctiva and sclera are non-icteric and not injected. Cornea within normal limits. Periorbital areas with no swelling, redness, or edema. ENT: Nares patent. No nasal discharge, no septal abnormalities noted. Tympanic membranes are normal and external auditory canals are clear. Oropharynx with no redness, swelling, or masses, exudates, or evidence of obstruction, uvula midline. Mucous membranes moist. Neck: Trachea midline, no thyromegaly or masses palpated, and no cervical lymphadenopathy. Supple, full range of motion without nuchal rigidity, or vertebral point tenderness. No Meningismus. Chest/axilla: Normal chest wall appearance and motion. Nontender with no deformity. No lesions are appreciated. Cardiovascular: Regular rate and rhythm with a normal S1 and S2. No gallops, murmurs, or rubs. Normal PMI, no JVD. No pulse deficits. Respiratory: Lungs have equal breath sounds bilaterally, clear to auscultation and percussion. No rales, rhonchi or wheezes noted. No increased work of breathing, no retractions or nasal flaring. Abdomen/GI: Soft, non-tender, with normal bowel sounds. No distension or tympany. No guarding or rebound. No evidence of tenderness throughout. Back: No spinal tenderness. No costovertebral tenderness. Full range of motion. Skin: Warm, dry with normal turgor. Normal color with no rashes, no lesions, and no evidence of cellulitis. MS/ Extremity: Pulses equal, no cyanosis. Neurovascular intact. Full, normal range of motion. Neuro: Awake and alert, GCS 15, oriented to person, place, time, and situation. Cranial nerves II-XII grossly intact. Motor strength 5/5 in all extremities. Sensory grossly intact. Cerebellar exam normal. Normal gait. Vital Signs: 14:00 BP 143 / 86; Pulse 72; Resp 17; Temp 97.8; Pulse Ox 100% ; Weight 70.76 kg; Height 5 jt3 ft. 8 in. (172.72 cm); 14:00 Body Mass Index 23.72 (70.76 kg, 172.72 cm) jt3 MDM: 14:09 Differential Diagnosis: electrolyte abnormality, hypoglycemia, UTI, volume depletion. [facility] 15:25 Data reviewed: vital signs, nurses notes, EMS record. Counseling: I had a detailed [facility] discussion with the patient and/or guardian regarding: the historical points, exam findings, and any diagnostic results supporting the discharge/admit diagnosis, the presence of at least one elevated blood pressure reading (>120/80) during this emergency department visit, the need for outpatient follow up. Response to treatment: the patient's symptoms have markedly improved after treatment. 15:25 Patient medically screened. az2 02/22 13:46 Order name: Basic Metabolic Panel; Complete Time: 15:26 ma2 02/22 13:46 Order name: CBC with Diff; Complete Time: 15:26 az2 02/22 13:46 Order name: Hepatic Function; Complete Time: 15:26 az2 02/22 13:46 Order name: Lipase; Complete Time: 15:26 ma2 02/22 13:58 Order name: Glucose, Ancillary Testing; Complete Time: 15: [facility] 02/22 14:22 Order name: Urine Dipstick-Ancillary; Complete Time: 15:26 EDWI 02/22 13:46 Order name: IV Saline Lock; Complete Time: 14:05 az2 02/22 13:46 Order name: Labs collected and sent; Complete Time: 14:05 az2 02/22 13:46 Order name: Urine Dipstick-Ancillary (obtain specimen); Complete Time: 14:46 ma2 Administered Medications: No medications were administered Disposition Summary: 02/22/21 15:25 Discharge Ordered Location: Home ma2 Condition: Stable ma2 Diagnosis - Other hypoglycemia ma2 Followup: ma2 - With: Private Physician - When: Tomorrow - Reason: Continuance of care Discharge Instructions: - Discharge Summary Sheet ma2 - Hypoglycemia ma2 Forms: - Medication Reconciliation Form ma2 - Thank You Letter ma2 - Antibiotic Education ma2 - Prescription Opioid Use ma2 Signatures: Dispatcher [employer] EDMS David Nassar MD MD ma2 Bertrand Francis RN RN jt3
[2021-02-22 15:59] VITALS: BP 143/86; TEMP 97.8; O2SAT 100
== END 2021-02-22 15:43 | disposition home or self-care (01) ==
LOC: ER 13:40
DX: E16.1 Other hypoglycemia (principal); Z72.0 Tobacco use
CPT/HCPCS: 36415; 80048; 80076; 81003; 82947; 83690; 85025; 99284

== ENCOUNTER 2023-03-17 19:43 | Emergency (ER) | payer SELFPAY ==
--- OUTSIDE RECORDS SUMMARY | 2023-03-17 19:46 | XMS REPORT | Continuity of Care Document ---
:1965 Author Organization [facility] t Address [address] [place] [address] Care Team Providers Name Role Phone PAMELA SEPULVEDA Attending Clinician Unavailable CARLENE KONG Attending Clinician Unavailable PAMELA SEPULVEDA Admitting Clinician Unavailable CARLENE KONG Admitting Clinician Unavailable Problems Condition Condition Condition Status Onset Resolution Last Treating Co mments Source Name Details Category Date Date Treatment Clinician Date History of History of Disease Active 2016-04 H [facility] positive positive [facility] PPD PPD 00:00: 00 Homeless Homeless Disease Active [facility] 00:00: 00 Dry skin Dry skin Disease Active [facility] dermatitis dermatitis 10-27 He alth 00:00: 00 Corns/call Corns/call Disease Active H arris osities osities 10-27 Health 00:00: 00 Diabetes 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 Family History Family Member Diagnosis Comments Start Date Stop Date Source [facility] Natural mother Cancer [facility] Other Unknown Fam Hx [facility] Social History Social Habit Start Date Stop Date Quantity Comments Source Sexual orientation [facility] History of tobacco Smokes tobacco [facility] use daily History of Social 2020-11-28 2020-11-28 [facility] function 00:00:00 00:00:00 Alcohol intake 2020-11-27 2020-11-27 Current [place] [facility] 00:00:00 00:00:00 non-drinker of alcohol (finding) Tobacco use and 2017-04-02 2017-04-02 Smokeless tobacco [facility] exposure 00:00:00 00:00:00 non-user Sex Ass[birth year] At [birth year] [facility] 00:00:00 00:00:00 Smoking Status Start Date Stop Date Source Smokes tobacco daily 2017-04-02 00:00:00 [facility] Medications Ordered Filled Start Stop Current Ordering Indication Dosage Frequency Signature Comments Components Source Medication Medication Date Date Medication? Clinician (SIG) Name Name nystatin 2016-04 Yes Tinea pedis Apply to Josemanuel (NYSTOP) 06-03 of both affected Heal 100,000 00:00: feet area 4 unit/gram 00 times topical daily. powder lancets 2016-04 Yes Diabetes Use as H arris gauge 2-04 mellitus directed 2 Heal 00:00: type 2 in times 00 nonobese daily. insulin NPH 2016-04 Yes Diabetes Inject 50 [place] (NOVOLIN N, 2-02 mellitus units Hea lth HUMULIN N) 00:00: type 2 in under the 100 unit/mL 00 nonobese skin in injection the morning and 35 units in the evening. insulin 2016-04 Yes Diabetes Sliding Mel[facility] REGULAR 2-02 mellitus scale to Heal (NOVOLIN R, 00:00: type 2 in use with HUMULIN R) 00 nonobese regular 100 unit/mL insulin 2 injection times a day, with breakfast and dinner. If blood glucose is 70-130 use 0 units If 131-180 use 2 units 181-240 4 units 241-300 6 units 301-350 8 units 351-400 10 units >400 12 units and call MDGabriela. blood 2016-04 Yes Diabetes 1{each} Q.5D Use as Melo ris glucose 2-02 mellitus directed 2 He alth (PRECISION 00:00: type 2 in times XTRA TEST 00 nonobese daily to STRIPS) test blood test strips sugar. INSULIN 2016-04 Yes Diabetes Use to [facility] is SYRINGE 2-02 mellitus inject Health 0.5mL 00:00: type 2 in medication 30GX5/16" 00 nonobese 4 times (MONOJECT daily. Use ULTRACOMFOR a new T INSULIN syringe SYR 0.5ML each time. 30GX5/16") syringe-nee dle blood 2016-04 Yes Diabetes Use as [place] glucose 0-03 mellitus directed.. He alth meter 00:00: type 2 in 00 nonobese ammonium 2017- Yes Diabetes Apply to H arris lactate 7-03 mellitus affected Heal th (AL12) 12 % 00:00: type 2 in area as lotion 00 nonobese needed for dry skin. Immunizations Ordered Immunization Filled Immunization Date Status Commen ts Source Name Name Tdap (Tetanus Toxoid, Unknown Completed [facility] Reduced Diphtheria Toxoid And Acellular Pertussis, Absorbed) Influenza Vaccine, Unknown Completed [facility] Seasonal, Injectable Procedures This patient has no known procedures. Plan of Care Planned Activity Planned Date Details Comments Source Future Scheduled Test 2022-12-26 00:00:00 IMM Influenza [facility] Seasonal (>/= 19 yrs) [code = IMM Influenza Seasonal (>/= 19 yrs)] Future Scheduled Test 2013-08-10 00:00:00 Screening for [facility] malignant neoplasm of colon (procedure) [code = 081465700] Future Scheduled Test 1966-02-10 00:00:00 COVID-19 Vaccine (#1) [facility] [code = COVID-19 Vaccine (#1)] Encounters Start End Encounter Admission Attending Care Care Encounter Source Date/Time Date/Time Type Type Clinicians Facility Department ID 2020-08-27 2020-08-29 Inpatient E [facility] [id number] [facility] 22:57:00 12:25:00 PAMELA 2020-08-27 2020-08-27 [id number] 22:57:00 23:59:00 CARLENE 2017-05-23 2017-05-23 Emergency [facility] MED [id number] [place] 10:14:13 10:14:13 Health 2017-04-02 2017-04-02 Outpatient [facility] [id number] [place] 15:09:47 15:09:47 Health 2017-04-02 2017-04-02 Outpatient [facility] [id number] [place] 14:58:43 14:58:43 Health 2017-04-02 2017-04-02 Outpatient [facility] [id number] [place] 14:04:08 14:04:08 Health 2017-03-28 2017-03-28 Outpatient [facility] [id number] [place] 16:45:33 16:45:33 [facility] 2017-02-05 2017-02-05 Emergency [facility] [id number] [place] 21:02:24 21:02:24 [facility] 2017-01-27 2017-01-27 Emergency [facility] [id number] [place] 20:43:13 20:43:13 [facility] 2017-01-21 2017-01-21 Outpatient [facility] [id number] [place] 00:00:00 00:00:00 [facility] 2017-01-08 2017-01-08 Outpatient [facility] [id number] [place] 00:00:00 00:00:00 [facility] 2017-01-01 2017-01-01 Outpatient [facility] [id number] [place] 00:00:00 00:00:00 [facility] 2017-01-01 2017-01-01 Outpatient [facility] [id number] [place] 00:00:00 00:00:00 [facility] 2017-01-01 2017-01-01 Outpatient [facility] [id number] [place] 00:00:00 00:00:00 [facility] 2016-12-18 2016-12-18 Outpatient [facility] [id number] [place] 09:56:12 09:56:12 [facility] 2016-12-12 2016-12-12 Outpatient [facility] [id number] [place] 11:41:30 11:41:30 [facility] 2016-12-09 2016-12-09 Emergency [facility] [id number] [place] 09:52:31 09:52:31 [facility] 2016-12-09 2016-12-09 Outpatient [facility] [id number] [place] 00:00:00 00:00:00 [facility] 2016-12-08 2016-12-08 Outpatient [facility] [id number] [place] 12:43:28 12:43:28 [facility] 2016-12-08 2016-12-08 Outpatient [facility] [id number] [place] 10:58:53 10:58:53 [facility] 2016-11-28 2016-11-28 Outpatient [facility] [id number] [place] 00:00:00 00:00:00 [facility] 2016-11-28 2016-11-28 Outpatient [facility] [id number] [place] 00:00:00 00:00:00 [facility] 2016-11-28 2016-11-28 Outpatient [facility] [id number] [place] 00:00:00 00:00:00 [facility] 2016-11-28 2016-11-28 Outpatient [facility] [id number] [place] 00:00:00 00:00:00 Health 2016-11-27 2016-11-27 Outpatient [facility] [id number] [place] 00:00:00 00:00:00 Health 2016-11-26 2016-11-26 Outpatient [facility] [id number] [place] 14:28:37 14:28:37 Health 2016-11-06 2016-11-06 Outpatient [facility] [id number] [place] 00:00:00 00:00:00 Health 2016-10-29 2016-10-29 Outpatient [facility] [id number] [place] 00:00:00 00:00:00 Health 2016-10-27 2016-10-27 Outpatient [facility] [id number] [place] 09:39:08 09:39:08 Health 2016-10-03 2016-10-03 Outpatient [facility] [id number] [place] 09:27:24 09:27:24 Health Results This patient has no known results.
[2023-03-17] MEDS ORDERED: D10W 250 ML IV ONE (20:15)
[2023-03-17 21:00] LABS: Absolute Lymphocytes (CBC) 2.1 K/uL (0.7-4.9); Hematocrit 45.9 % (39.6-49.0); Lymphocytes % 32.5 % (15.3-44.8); MCV 87.9 fL (80-100); MPV 7.2 fL (7.6-11.3); Platelets 241 thou/uL (152-406); RBC Red Blood Cell Count 5.23 M/uL (4.33-5.43)
[2023-03-17 21:18] LABS: Albumin 3.2 g/dL (3.4-5.0); Bilirubin Total 0.6 mg/dL (0.2-1.0); Potassium 3.3 mEq/L (3.5-5.1); Protein, Total 7.7 g/dL (6.4-8.2)
--- NOTE | 2023-03-17 21:27 | EDPHYS ---
Physician Documentation [facility] Name: Bubba Ahumada Age: 57 yrs Sex: Male : 1965 Arrival Date: 03/17/2023 Time: 19:43 Bed 13 Private MD: ED Physician Lexa Rodriguez HPI: 03/17 19:49 This 57 yrs old Male presents to ER via Unassigned with complaints of unresponsive, snw FSBS 27mg/dl. 19:49 pt takes insulin and then does not eat or passes out. EMS states they give him D10 snw about three times a week.. Historical: - Home Meds: 21:34 insulin 70/30 [Active]; la4 - PMHx: 21:34 Diabetes - IDDM; Hypertension; la4 - Immunization history:: Client reports receiving the 2nd dose of the Covid vaccine. - Social history:: Smoking status: Patient reports the use of cigarette tobacco products, smokes one-half pack cigarettes per day. - Code Status:: Full code. ROS: 03/18 01:53 Constitutional: Negative for fever, chills, and weight loss, Eyes: Negative for injury, snw pain, redness, and discharge, ENT: Negative for injury, pain, and discharge, Neck: Negative for injury, pain, and swelling, Cardiovascular: Negative for chest pain, palpitations, and edema, Respiratory: Negative for shortness of breath, cough, wheezing, and pleuritic chest pain, Abdomen/GI: Negative for abdominal pain, nausea, vomiting, diarrhea, and constipation, Back: Negative for injury and pain, : Negative for injury, bleeding, discharge, and swelling, MS/Extremity: Negative for injury and deformity, Skin: Negative for injury, rash, and discoloration, Neuro: Negative for headache, weakness, numbness, tingling, and seizure, Psych: Negative for depression, anxiety, suicide ideation, homicidal ideation, and hallucinations, Exam: 01:51 Head/Face: Normocephalic, atraumatic. Eyes: Pupils equal round and reactive to light, snw extra-ocular motions intact. Lids and lashes normal. Conjunctiva and sclera are non-icteric and not injected. Cornea within normal limits. Periorbital areas with no swelling, redness, or edema. ENT: Nares patent. No nasal discharge, no septal abnormalities noted. Tympanic membranes are normal and external auditory canals are clear. Oropharynx with no redness, swelling, or masses, exudates, or evidence of obstruction, uvula midline. Mucous membranes moist. Neck: Trachea midline, no thyromegaly or masses palpated, and no cervical lymphadenopathy. Supple, full range of motion without nuchal rigidity, or vertebral point tenderness. No Meningismus. Chest/axilla: Normal chest wall appearance and motion. Nontender with no deformity. No lesions are appreciated. Cardiovascular: Regular rate and rhythm with a normal S1 and S2. No gallops, murmurs, or rubs. Normal PMI, no JVD. No pulse deficits. Respiratory: Lungs have equal breath sounds bilaterally, clear to auscultation and percussion. No rales, rhonchi or wheezes noted. No increased work of breathing, no retractions or nasal flaring. Abdomen/GI: Soft, non-tender, with normal bowel sounds. No distension or tympany. No guarding or rebound. No evidence of tenderness throughout. Back: No spinal tenderness. No costovertebral tenderness. Full range of motion. Skin: Warm, dry with normal turgor. Bronze color with no rashes, no lesions, and no evidence of cellulitis. MS/ Extremity: Pulses equal, no cyanosis. Neurovascular intact. Full, normal range of motion. Neuro: Awake and alert, GCS 15, oriented to person, place, time, and situation. Cranial nerves II-XII grossly intact. Motor strength 5/5 in all extremities. Sensory grossly intact. Cerebellar exam normal. Normal gait. Psych: Awake, alert, with orientation to person, place and time. Behavior, mood, and affect are within normal limits. 01:51 Constitutional: The patient appears alert, awake, Vital Signs: 03/17 19:40 BP 135 / 97; Pulse 75; Resp 20; Temp 97.8; Pulse Ox 98% on R/A; Weight 68.04 kg; Height la4 5 ft. 6 in. ; Pain 0/10; 20:15 BP 132 / 82; Pulse 74; Resp 18; Pulse Ox 98% ; la4 20:45 BP 143 / 78; Pulse 74; Resp 18; Pulse Ox 99% ; la4 21:30 BP 128 / 72; Pulse 78; Resp 18; Pulse Ox 97% ; la4 22:16 BP 143 / 94; Pulse 86; Resp 20; Temp 97.9(O); Pulse Ox 98% on R/A; la4 19:40 Body Mass Index 24.21 (68.04 kg, 167.64 cm) la4 19:40 Pain Scale: Adult la4 MDM: 19:46 Patient medically screened. snw 03/18 01:51 Differential Diagnosis hypoglycemia. Data reviewed: vital signs, nurses notes, lab test snw result(s). I considered the following discharge prescriptions or medication management in the emergency department ate try instead of D10, FSBS within normal. Historians other than the Patient: EMS: [place] . Counseling: I had a detailed discussion with the patient and/or guardian regarding the historical points, exam findings, and any diagnostic results supporting the discharge/admit diagnosis, lab results, the need for outpatient follow up, for definitive care, to return to the emergency department if symptoms worsen or persist or if there are any questions or concerns that arise at home. Response to treatment: the patient's symptoms have markedly improved after treatment. Special discussion: I have referred the patient to see his PCP for further evaluation of high blood pressure. Based on the history and exam findings, there is no indication for further emergent testing or inpatient evaluation. I discussed with the patient/guardian the need to see the primary care provider for further evaluation of the symptoms. 01:53 ED course: pt was alert and oriented on arrival to ED post oral glucose. snw 03/17 19:47 Order name: CBC with Diff; Complete Time: 21:13 snw 03/17 19:47 Order name: CMP; Complete Time: 21:26 snw 03/17 19:47 Order name: Lipase; Complete Time: 21:26 snw 03/17 19:47 Order name: HgA1c snw 03/17 20:30 Order name: Glucose, Ancillary Testing; Complete Time: 20:34 EDMS 03/17 21:47 Order name: Glucose, Ancillary Testing; Complete Time: 21:49 EDMS 03/17 21:58 Order name: Hemoglobin A1c EDMS 03/17 19:47 Order name: IV Saline Lock; Complete Time: 21:43 snw 03/17 19:47 Order name: Labs collected and sent; Complete Time: 21:43 snw EC/21 20:15 Rate is 74 beats/min. Rhythm is regular. QRS [place] is Normal. MD interval is normal. No snw Q waves. Clinical impression: Normal ECG. Administered Medications: 21:44 Not Given (pt blood sugar 101 and pt eatingg): d10 in [id number] ml IVP once la4 Disposition Summary: 03/17/23 21:26 Discharge Ordered Notes: Location: Home snw Condition: Stable snw Diagnosis - Drug-induced hypoglycemia without coma snw Followup: snw - With: Emergency Department - When: As needed - Reason: Worsening of condition Followup: snw - With: Private Physician - When: 1 - 2 days - Reason: Recheck today's complaints, Continuance of care, Re-evaluation by your physician Discharge Instructions: - Discharge Summary Sheet snw - Hypoglycemia snw - Preventing Hypoglycemia snw Forms: - Medication Reconciliation Form snw - Thank You Letter snw - Antibiotic Education snw - Prescription Opioid Use snw - Patient Portal Instructions snw - Leadership Thank You Letter snw Signatures: Dispatcher [employer] EDJosette Echavarria, SLIDE MAKER-C SLIDE MAKER-Csnw Elgin Constantino, RN RN la4
--- NOTE | 2023-03-17 22:46 | ER ---
Nurse's Notes [facility] Name: Bubba Ahumada Age: 57 yrs Sex: Male : 1965 Arrival Date: 03/17/2023 Time: 19:43 Bed 13 Private MD: Diagnosis: Drug-induced hypoglycemia without coma Presentation: 03/17 19:40 Chief complaint: Patient states: Takes 50 units of 70/30 Insulin in the morning and at la4 night for his diabetes EMS states: Low blood sugar. Pt reports diabetes and is seen by EMS 3 or more time a week for low b lood sugar. Pt takes Insulin 70/30. pt initial BGL 20, oral g;ucose given pt glucose up to 30. Pt a\T\Ox4 and able to eat and drink. Coronavirus screen: Vaccine status: Patient reports receiving the 2nd dose of the covid vaccine. Ebola Screen: No symptoms or risks identified at this time. Initial Sepsis Screen: Does the patient meet any 2 criteria? No. Patient's initial sepsis screen is negative. Does the patient have a suspected source of infection? No. Patient's initial sepsis screen is negative. Risk Assessment: Do you want to hurt yourself or someone else? Patient reports no desire to harm self or others. Onset of symptoms was March 17, 2023. 19:40 Method Of Arrival: EMS: [facility] la4 19:40 Acuity: REED 2 la4 Triage Assessment: 21:34 General: Appears in no apparent distress. Behavior is calm, cooperative, appropriate la4 for age. Pain: Denies pain. EENT: No deficits noted. No signs and/or symptoms were reported regarding the EENT system. Neuro: No deficits noted. [place] Agitation-Sedation Scale (RASS): 0 - Alert and Calm Level of Consciousness is awake, alert, obeys commands, confused, Oriented to person, place, time, Appropriate for age. Cardiovascular: No deficits noted. Heart tones S1 S2 Capillary refill < 3 seconds is brisk Pulses are all present. Edema is absent. Rhythm is sinus rhythm. Respiratory: No deficits noted. Airway is patent Respiratory effort is even, unlabored. GI: No deficits noted. No signs and/or symptoms were reported involving the gastrointestinal system. : No deficits noted. No signs and/or symptoms were reported regarding the genitourinary system. Musculoskeletal: No deficits noted. No signs and/or symptoms reported regarding the musculoskeletal system. Historical: - Home Meds: 21:34 insulin 70/30 [Active]; la4 - PMHx: 21:34 Diabetes - IDDM; Hypertension; la4 - Immunization history:: Client reports receiving the 2nd dose of the Covid vaccine. - Social history:: Smoking status: Patient reports the use of cigarette tobacco products, smokes one-half pack cigarettes per day. - Code Status:: Full code. Screenin:40 [facility] ED Fall Risk Assessment (Adult) History of falling in the last 3 months, la4 including since admission No falls in past 3 months (0 pts) Confusion or Disorientation No (0 pts) Intoxicated or Sedated No (0 pts) Impaired Gait No (0 pts) Mobility Assist Device Used No (0 pt) Altered Elimination No (0 pt) Score/Fall Risk Level 0 - 2 = Low Risk. 21:40 Abuse screen: Denies threats or abuse. Denies injuries from another. Nutritional la4 screening: No deficits noted. Tuberculosis screening: No symptoms or risk factors identified. Assessment: 21:38 Reassessment: Patient appears in no apparent distress at this time. Patient and/or la4 family updated on plan of care and expected duration. Pain level reassessed. Patient is alert, oriented x 3, equal unlabored respirations, skin warm/dry/pink. Patient denies pain at this time. Patient states feeling better. Patient states symptoms have improved. General: Appears in no apparent distress. Behavior is calm, cooperative, appropriate for age. Pain: Denies pain. Neuro: No deficits noted. [place] Agitation-Sedation Scale (RASS): 0 - Alert and Calm Level of Consciousness is awake, alert, obeys commands, Oriented to person, place, time, situation, Appropriate for age. Cardiovascular: No deficits noted. Reports None Heart tones S1 S2. Respiratory: Airway is patent Respiratory effort is even, unlabored, Respiratory pattern is regular, symmetrical. Vital Signs: 19:40 BP 135 / 97; Pulse 75; Resp 20; Temp 97.8; Pulse Ox 98% on R/A; Weight 68.04 kg; Height la4 5 ft. 6 in. ; Pain 0/10; 20:15 BP 132 / 82; Pulse 74; Resp 18; Pulse Ox 98% ; la4 20:45 BP 143 / 78; Pulse 74; Resp 18; Pulse Ox 99% ; la4 21:30 BP 128 / 72; Pulse 78; Resp 18; Pulse Ox 97% ; la4 22:16 BP 143 / 94; Pulse 86; Resp 20; Temp 97.9(O); Pulse Ox 98% on R/A; la4 19:40 Body Mass Index 24.21 (68.04 kg, 167.64 cm) la4 19:40 Pain Scale: Adult la4 ED Course: 19:46 Patient arrived in ED. snw 19:48 [facility] Lyon [facility]C [facility] snw 19:48 Lexa Rodriguez MD is Attending Physician. snw 19:56 Elgin Constantino, RN is Primary Nurse. la4 21:34 Triage completed. la4 21:34 Arm band placed on right wrist. Patient placed in an exam room, on a stretcher, on la4 playground monitor, on pulse oximetry. EKG completed in triage. Results shown to MD. 21:40 Patient has correct armband on for positive identification. Placed in gown. Bed in low la4 position. Call light in reach. Side rails up X2. Provided Education on: plan of care. 21:40 No provider procedures requiring assistance completed. la4 22:00 HgA1c Sent. la4 Administered Medications: 21:44 Not Given (pt blood sugar 101 and pt eatingg): d10 in [id number] ml IVP once la4 Medication: 22:16 VIS not applicable for this client. la4 Outcome: 21:26 Discharge ordered by MD. snw 22:46 Patient left the ED. la4 Signatures: Josette Lyon FNP-C [employer] TESTER-Csnw Elgin Constantino, RN RN la4
[2023-03-17 22:55] VITALS: BP 143/94; TEMP 97.9; O2SAT 98
--- NOTE | 2023-03-18 16:50 | EKG ---
Test Date: 2023-03-17 Test Time: 20:15:58 Pipe And Test Supervisor: DIANE MEASUREMENT RESULTS: Intervals: Rate: 74 IA: 130 QRSD: 98 QT: 388 QTc: 430 [place]: P: 31 IA: 130 QRS: 81 T: 62 INTERPRETIVE STATEMENTS: Normal sinus rhythm Normal ECG Compared to ECG 01/19/2019 23:37:50 No significant changes Electronically Signed On 03-18-23 16:48:59 LOCKER ROOM ATTENDANT by Taye Acevedo
== END 2023-03-17 22:46 | disposition home or self-care (01) ==
LOC: ER 19:43
DX: E11.649 Type 2 diabetes mellitus with hypoglycemia without coma (principal); I10 Essential (primary) hypertension; Z79.4 Long term (current) use of insulin; F17.210 Nicotine dependence, cigarettes, uncomplicated
CPT/HCPCS: 36415; 80053; 82947; 83036; 83690; 85025; 93005; 99284

== ENCOUNTER 2023-05-05 08:19 | Inpatient (IN) | payer SELFPAY ==
[2023-05-05 08:50] LABS: Absolute Lymphocytes (CBC) 2.3 K/uL (0.7-4.9); Hematocrit 47.2 % (39.6-49.0); Lymphocytes % 17.4 % (15.3-44.8); Platelets 283 thou/uL (152-406); RBC Red Blood Cell Count 5.25 M/uL (4.33-5.43)
[2023-05-05 09:16] LABS: Albumin 3.7 g/dL (3.4-5.0); BETA HYDROXYBUTYRATE 4.15 mmol/L (0.02-0.27); Bilirubin Direct 0.3 mg/dL (0-0.2); Bilirubin Indirect, Calculated 0.9 mg/dL (0.2-0.8); Bilirubin Total 1.2 mg/dL (0.2-1.0); Magnesium 1.7 mg/dL (1.6-2.4); Phosphorus 3.3 mg/dL (2.5-4.9); Potassium 4.9 mEq/L (3.5-5.1)
[2023-05-05] MEDS ORDERED: NA CHLORIDE 0.9% 1,000 ML ONE (09:42)
[2023-05-05] MEDS ORDERED: INSULIN -REGULAR HUMAN 100 UNIT in NA CHLORIDE 0.9% 100 ML IV SCH ×2 (10:00→13:00)
--- NOTE | 2023-05-05 10:00 | ER ---
Nurse's Notes [facility] Name: Bubba Ahumada Age: 57 yrs Sex: Male : 1965 Arrival Date: 05/05/2023 Time: 08:19 Bed 7 Private MD: Diagnosis: Type 1 diabetes mellitus with ketoacidosis without coma;Nausea with vomiting, unspecified Presentation: 05/05 08:19 Chief complaint: EMS states: pt is a type 1 diabetic who has been out of his insulin x kc6 2 days. BGL for EMS 430. pt reports n/v and KAI shoulder pain. Coronavirus screen: At this time, the client does not indicate any symptoms associated with coronavirus-19. Ebola Screen: No symptoms or risks identified at this time. Initial Sepsis Screen: Does the patient meet any 2 criteria? No. Patient's initial sepsis screen is negative. Does the patient have a suspected source of infection? No. Patient's initial sepsis screen is negative. Risk Assessment: Do you want to hurt yourself or someone else? Patient reports no desire to harm self or others. Onset of symptoms was May 05, 2023. 08:19 Method Of Arrival: EMS: [facility] kc6 08:19 Acuity: REED 3 kc6 Triage Assessment: 08:21 General: Appears in no apparent distress. uncomfortable, well groomed, well developed, kc6 Behavior is calm, cooperative, appropriate for age. Pain: Complains of pain in right arm and left arm. EENT: No signs and/or symptoms were reported regarding the EENT system. Neuro: Level of Consciousness is awake, alert, obeys commands, Oriented to person, place, time, situation, Appropriate for age. Cardiovascular: Capillary refill < 3 seconds. Respiratory: Airway is patent Trachea midline Respiratory effort is even, unlabored, Respiratory pattern is regular, symmetrical. GI: Reports nausea, vomiting, Patient currently denies abdominal pain, diarrhea. : No signs and/or symptoms were reported regarding the genitourinary system. Derm: No signs and/or symptoms reported regarding the dermatologic system. Skin is intact, is healthy with good turgor, Skin is pink, warm \T\ dry. Musculoskeletal: No signs and/or symptoms reported regarding the musculoskeletal system. Circulation, motion, and sensation intact. Capillary refill < 3 seconds, Range of motion: intact in all extremities. Historical: - Allergies: 08:21 No Known Allergies; kc6 - Home Meds: 16:21 insulin 70/30 [Active]; tl4 - PMHx: 08:21 Diabetes - IDDM; Hypertension; Myocardial infarction; kc6 - PSHx: 08:21 cardiac stents (Hypertension); kc6 - Immunization history:: Adult Immunizations not up to date. - Social history:: Smoking status: unknown. Screenin:22 [facility] ED Fall Risk Assessment (Adult) History of falling in the last 3 months, kc6 including since admission No falls in past 3 months (0 pts) Confusion or Disorientation No (0 pts) Intoxicated or Sedated No (0 pts) Impaired Gait No (0 pts) Mobility Assist Device Used No (0 pt) Altered Elimination No (0 pt) Score/Fall Risk Level 0 - 2 = Low Risk. Abuse screen: Denies threats or abuse. Denies injuries from another. Nutritional screening: No deficits noted. Tuberculosis screening: No symptoms or risk factors identified. Assessment: 08:22 Reassessment: please see triage assessment. kc6 10:22 Reassessment: Patient appears in no apparent distress at this time. No changes from [facility] previously documented assessment. Patient and/or family updated on plan of care and expected duration. Pain level reassessed. Patient is alert, oriented x 3, equal unlabored respirations, skin warm/dry/pink. 11:24 Reassessment: Patient appears in no apparent distress at this time. No changes from [facility] previously documented assessment. Patient and/or family updated on plan of care and expected duration. Pain level reassessed. Patient is alert, oriented x 3, equal unlabored respirations, skin warm/dry/pink. Patient states feeling better. Patient states symptoms have improved. Vital Signs: 08:19 BP 124 / 59; Pulse 97; Resp 14 S; Temp 97.3(O); Pulse Ox 99% on R/A; Weight 68.04 kg kc6 (R); Height 5 ft. 8 in. (R); Pain 6/10; 10:22 BP 127 / 66; Pulse 116; Resp 18 S; Pulse Ox 98% on R/A; kc6 11:24 BP 123 / 66; Pulse 103; Resp 18 S; Pulse Ox 97% on R/A; kc6 12:00 BP 129 / 67; Pulse 103; Resp 16; Pulse Ox 97% ; Pain 0/10; tl4 08:19 Body Mass Index 22.81 (68.04 kg, 172.72 cm) kc6 08:19 Pain Scale: Adult kc6 12:00 Pain Scale: Adult tl4 ED Course: 08:19 Patient arrived in ED. kc6 08:20 Triage completed. kc6 08:21 Arm band placed on. kc6 08:22 Verona Tay, RN is Primary Nurse. kc6 08:22 Patient has correct armband on for positive identification. Bed in low position. Call kc6 light in reach. Side rails up X2. Client placed on continuous cardiac and pulse oximetry monitoring. NIBP monitoring applied. vehicle monitor technician on. 08:22 Maintain EMS IV. Dressing intact. Good blood return noted. Site clean \T\ dry. Gauge \T\ joaquim 6 site: 20G LAC. Patient maintains SpO2 saturation greater than 95% on room air. 08:27 Bryce Wilder DO is Attending Physician. ms3 08:31 EKG done, by ED staff, reviewed by Bryce Wilder DO. mb9 08:31 No provider procedures requiring assistance completed. mb9 09:53 David Nye MD is Hospitalizing Provider. ms3 16:21 Provided Education on: ED process. tl4 16:51 Report given to PEDRITO Cortes. tl4 16:52 Patient admitted, IV remains in place. tl4 Administered Medications: 09:54 Drug: NS 0.9% IV 1000 ml IV at 125 ml/hr continuous Route: IV; Rate: 125 ml/hr; Site: [facility] left antecubital; 11:21 Follow up: Response: No adverse reaction; IV Status: Infusion continued upon admission; kc6 IV Intake: 1000ml 10:15 Drug: Insulin Drip - (Insulin Regular Human IVP 100 units, NS 0.9% IV 100 ml) IV at mb9 calculated rate continuous; Standard concentration 1unit/ml; Dose for DKA is 0.1 units/kg/hr {Co-Signature: kc6 (Verona Tay RN).} Route: IV; Rate: calculated rate; Site: left antecubital; 11:15 Follow up: Rate change 7.8 units/hr kc6 12:29 Follow up: Rate change 3.9 units/hr; Pt blood glucose decreased 117 mg/dL. Rate tl4 decresed to half the current rate from 7.8 units/hr to 3.9 units/hr 13:16 Follow up: Rate change 4.9 units/hr; Blood glucose decreased to 252 mg/dL. Per tl4 protocol, rate increased to 4.9 units/hr 15:31 Follow up: Rate change units/hr; BG 130 mg/dL. Insulin drip on hold for 30 min per tl4 protocol. 16:00 Follow up: Rate change units/hr; BG 143mg/dL. Insulin drip on hold for 30 min per tl4 protocol. 16:37 Follow up: Rate change 2.45 units/hr tl4 10:22 Drug: Ondansetron IVP 4 mg IVP once; over 2 minutes Route: IVP; Site: left antecubital; kc6 10:57 Follow up: Response: No adverse reaction; Nausea is decreased; Vomiting decreased kc6 Medication: 16:21 VIS not applicable for this client. tl4 Intake: 11:21 IV: 1000ml; Total: 1000ml. kc6 Outcome: 09:59 Decision to Hospitalize by Provider. ms3 16:51 Admitted to ICU accompanied by nurse, via wheelchair, room 2, Report called to cathy Cortes RN 16:51 Condition: stable 16:51 Instructed on the need for admit, 17:08 Patient left the ED. tl4 Signatures: Bryce Wilder, DO ms3 Verona Tay, RN RN kc6 Janell Pereira, RN RN mb9 Adolfo Vivar tl4 Verona Tay RN kc6 Corrections: (The following items were deleted from the chart) 16:41 15:31 Rate change units/hr tl4 tl4
--- NOTE | 2023-05-05 10:00 | EDPHYS ---
Physician Documentation [facility] Name: Bubba Ahumada Age: 57 yrs Sex: Male : 1965 Arrival Date: 05/05/2023 Time: 08:19 Bed 7 Private MD: ED Physician Bryce Wilder HPI: 05/05 08:40 This 57 yrs old Male presents to ER via EMS with complaints of High Blood Sugar. ms3 08:40 57-year-old male with past medical history of insulin-dependent diabetes mellitus, ms3 hypertension, myocardial infarction presents to the emergency department for nausea, vomiting, abdominal pain that began this morning. Patient states his discomfort is a 6/10. EMS notes patient's blood glucose level 430. Patient states he has been out of his insulin for 2 days. Historical: - Allergies: 08:21 No Known Allergies; kc6 - Home Meds: 16:21 insulin 70/30 [Active]; tl4 - PMHx: 08:21 Diabetes - IDDM; Hypertension; Myocardial infarction; kc6 - PSHx: 08:21 cardiac stents (Hypertension); kc6 - Immunization history:: Adult Immunizations not up to date. - Social history:: Smoking status: unknown. ROS: 08:40 Constitutional: Negative for fever, and chills. Neck: Negative for injury, pain, and ms3 swelling, Cardiovascular: Negative for chest pain, and palpitations. Respiratory: Negative for shortness of breath, cough, wheezing, and pleuritic chest pain, MS/Extremity: Negative for injury and deformity, Skin: Negative for injury, rash, and discoloration, 08:40 Abdomen/GI: Positive for abdominal pain, nausea and vomiting, 08:40 All other systems are negative, Exam: 08:40 Constitutional: This is a well developed, well nourished patient who is awake, alert, ms3 and in no acute distress. Head/Face: Normocephalic, atraumatic. Neck: Trachea midline, no cervical lymphadenopathy. Supple, full range of motion without nuchal rigidity, or vertebral point tenderness. No Meningismus. Chest/axilla: Normal chest wall appearance and motion. Nontender with no deformity. Cardiovascular: Regular rate and rhythm with a normal S1 and S2. No gallops, murmurs, or rubs. Normal PMI, no JVD. No pulse deficits. Respiratory: Lungs have equal breath sounds bilaterally, clear to auscultation and percussion. No rales, rhonchi or wheezes noted. No increased work of breathing, no retractions or nasal flaring. Abdomen/GI: Soft, non-tender, with normal bowel sounds. No distension or tympany. No guarding or rebound. No evidence of tenderness throughout. Skin: Warm, dry with normal turgor. Normal color with no rashes, no lesions, and no evidence of cellulitis. MS/ Extremity: Pulses equal, no cyanosis. Neurovascular intact. Full, normal range of motion. 08:40 ECG was reviewed by the Attending Physician. ms3 Vital Signs: 08:19 BP 124 / 59; Pulse 97; Resp 14 S; Temp 97.3(O); Pulse Ox 99% on R/A; Weight 68.04 kg kc6 (R); Height 5 ft. 8 in. (R); Pain 6/10; 10:22 BP 127 / 66; Pulse 116; Resp 18 S; Pulse Ox 98% on R/A; kc6 11:24 BP 123 / 66; Pulse 103; Resp 18 S; Pulse Ox 97% on R/A; kc6 12:00 BP 129 / 67; Pulse 103; Resp 16; Pulse Ox 97% ; Pain 0/10; tl4 08:19 Body Mass Index 22.81 (68.04 kg, 172.72 cm) kc6 08:19 Pain Scale: Adult kc6 12:00 Pain Scale: Adult tl4 MDM: 08:27 Patient medically screened. ms3 08:40 Differential diagnosis: DKA, hyperglycemia. ms3 09:39 ED course: Discussed with patient that he is in DKA and requires insulin ggt. Patient ms3 declines and states he just wants a shot of insulin and to be discharged. Will obtain VBG.. 09:59 Data reviewed: vital signs, nurses notes, lab test result(s), and as a result, I will ms3 admit patient. Consideration of Admission/Observation Patient was admitted/placed on observation. Management of patient was discussed with the following: Hospitalist: Dr Nye. I considered the following discharge prescriptions or medication management in the emergency department Medications were administered in the Emergency Department. See MAR. Historians other than the Patient: EMS: [facility]. Care significantly affected by the following chronic conditions: Diabetes, Hypertension. Counseling: I had a detailed discussion with the patient and/or guardian regarding the historical points, exam findings, and any diagnostic results supporting the discharge/admit diagnosis, lab results, the need for further work-up and treatment in the hospital. 05/05 08:27 Order name: Basic Metabolic Panel ms3 05/05 08:27 Order name: CBC with Diff ms3 05/05 08:27 Order name: Hepatic Function ms3 05/05 08:27 Order name: Lipase ms3 05/05 08:27 Order name: Magnesium ms3 05/05 08:27 Order name: Phosphorus ms3 05/05 08:46 Order name: Basic Metabolic Panel; Complete Time: 09:31 EDMS 05/05 08:46 Order name: Liver (Hepatic) Function; Complete Time: 09:31 EDMS 05/05 08:46 Order name: Phosphorus; Complete Time: 09:31 EDMS 05/05 08:46 Order name: BETA HYDROXYBUTYRATE; Complete Time: 09:31 EDMS 05/05 08:46 Order name: Magnesium; Complete Time: 09:31 EDMS 05/05 08:46 Order name: Lipase; Complete Time: 09:31 EDMS 05/05 08:46 Order name: CBC with Automated Diff; Complete Time: 09:31 EDMS 05/05 10:02 Order name: ABG Arterial Blood Gas; Complete Time: 10:06 EDMS 05/05 11:30 Order name: Glucose, Ancillary Testing EDMS 05/05 12:20 Order name: Glucose, Ancillary Testing EDMS 05/05 12:51 Order name: Basic Metabolic Panel EDMS 05/05 12:51 Order name: Magnesium EDMS 05/05 12:55 Order name: Basic Metabolic Panel EDMS 05/05 12:55 Order name: Basic Metabolic Panel EDMS 05/05 12:55 Order name: Basic Metabolic Panel EDMS 05/05 12:55 Order name: Calcium Level EDMS 05/05 12:55 Order name: Calcium Level EDMS 05/05 12:55 Order name: Calcium Level EDMS 05/05 12:55 Order name: Calcium Level EDMS 05/05 12:55 Order name: CBC with Automated Diff EDMS 05/05 12:55 Order name: CBC with Automated Diff EDMS 05/05 12:55 Order name: CBC with Automated Diff EDMS 05/05 12:55 Order name: CBC with Automated Diff EDMS 05/05 12:55 Order name: Lipid Profile EDMS 05/05 12:55 Order name: Lipid Profile EDMS 05/05 12:55 Order name: Magnesium EDMS 05/05 12:55 Order name: Magnesium EDMS 05/05 12:55 Order name: Magnesium EDMS 05/05 12:55 Order name: Magnesium EDMS 05/05 12:55 Order name: Phosphorus EDMS 05/05 12:55 Order name: Phosphorus EDMS 05/05 12:55 Order name: Phosphorus EDMS 05/05 12:55 Order name: Phosphorus EDMS 05/05 13:27 Order name: Glucose, Ancillary Testing EDMS 05/05 14:19 Order name: Glucose, Ancillary Testing EDMS 05/05 15:43 Order name: Glucose, Ancillary Testing EDMS 05/05 16:16 Order name: Glucose, Ancillary Testing EDMS 05/05 16:48 Order name: Glucose, Ancillary Testing EDMS 05/05 08:27 Order name: EKG; Complete Time: 11:28 ms3 05/05 08:27 Order name: Cardiac monitoring; Complete Time: 08:30 ms3 05/05 08:27 Order name: EKG - Nurse/Tech; Complete Time: 08:30 ms3 05/05 08:27 Order name: IV Saline Lock; Complete Time: 08:31 ms3 05/05 08:27 Order name: NPO; Complete Time: 08:31 ms3 05/05 08:27 Order name: O2 Per Protocol; Complete Time: 08:31 ms3 05/05 08:27 Order name: O2 Sat Monitoring; Complete Time: 08:31 ms3 EC:40 Rate is 101 beats/min. Rhythm is regular. QRS [place] is Normal. MA interval is normal. ms3 QRS interval is normal. Clinical impression: Sinus tachycardia. Interpreted by me. Reviewed by me. Administered Medications: 09:54 Drug: NS 0.9% IV 1000 ml IV at 125 ml/hr continuous Route: IV; Rate: 125 ml/hr; Site: [facility] left antecubital; 11:21 Follow up: Response: No adverse reaction; IV Status: Infusion continued upon admission; [facility] IV Intake: 1000ml 10:15 Drug: Insulin Drip - (Insulin Regular Human IVP 100 units, NS 0.9% IV 100 ml) IV at mb9 calculated rate continuous; Standard concentration 1unit/ml; Dose for DKA is 0.1 units/kg/hr {Co-Signature: kc6 (Verona Tay RN).} Route: IV; Rate: calculated rate; Site: left antecubital; 11:15 Follow up: Rate change 7.8 units/hr kc6 12:29 Follow up: Rate change 3.9 units/hr; Pt blood glucose decreased 117 mg/dL. Rate tl4 decresed to half the current rate from 7.8 units/hr to 3.9 units/hr 13:16 Follow up: Rate change 4.9 units/hr; Blood glucose decreased to 252 mg/dL. Per tl4 protocol, rate increased to 4.9 units/hr 15:31 Follow up: Rate change units/hr; BG 130 mg/dL. Insulin drip on hold for 30 min per tl4 protocol. 16:00 Follow up: Rate change units/hr; BG 143mg/dL. Insulin drip on hold for 30 min per tl4 protocol. 16:37 Follow up: Rate change 2.45 units/hr tl4 10:22 Drug: Ondansetron IVP 4 mg IVP once; over 2 minutes Route: IVP; Site: left antecubital; kc6 10:57 Follow up: Response: No adverse reaction; Nausea is decreased; Vomiting decreased kc6 Disposition Summary: 05/05/23 09:59 Hospitalization Ordered Notes: Hospitalization Status: Inpatient Admission ms3 Provider: David Nye ms3 Condition: Stable ms3 Problem: new ms3 Symptoms: are unchanged ms3 Bed/Room Type: Standard ms3 Location: Intensive Care Unit(05/05/23 15:51) ja1 Room Assignment: 2-(05/05/23 15:51) ja Diagnosis - Type 1 diabetes mellitus with ketoacidosis without coma ms3 - Nausea with vomiting, unspecified ms3 Forms: - Medication Reconciliation Form ms3 - SBAR form ms3 - Leadership Thank You Letter ms3 Critical care time excluding procedures: 09:59 Critical care time: Bedside Care: 40 minutes, Consultation: 5 minutes. Total time: 45 ms3 minutes Signatures: Dispatcher [employer] Rome Blanton, PEDRITO RN ja1 Bryce Wilder DO DO ms3 Verona Tay, RN RN kc6 AmandaJanell menjivar, RN RN mb9 Moloretta, Mariah, CIGARETTE MACHINE OPERATOR CIGARETTE MACHINE OPERATOR cm12 Logdahl, Adolfo tl4 Verona Tay RN kc6 Corrections: (The following items were deleted from the chart) 08:42 08:40 Constitutional: This is a well developed, well nourished patient who is awake, ms3 alert, and in no acute distress. Head/Face: Normocephalic, atraumatic. Neck: Trachea midline, no cervical lymphadenopathy. Supple, full range of motion without nuchal rigidity, or vertebral point tenderness. No Meningismus. Chest/axilla: Normal chest wall appearance and motion. Nontender with no deformity. Cardiovascular: Regular rate and rhythm with a normal S1 and S2. No gallops, murmurs, or rubs. Normal PMI, no JVD. No pulse deficits. Respiratory: Lungs have equal breath sounds bilaterally, clear to auscultation and percussion. No rales, rhonchi or wheezes noted. No increased work of breathing, no retractions or nasal flaring. Abdomen/GI: Soft, non-tender, with normal bowel sounds. No distension or tympany. No guarding or rebound. No evidence of tenderness throughout. Skin: Warm, dry with normal turgor. Normal color with no rashes, no lesions, and no evidence of cellulitis. MS/ Extremity: Pulses equal, no cyanosis. Neurovascular intact. Full, normal range of motion. ms3 12:18 11:29 Arterial Blood Gas+RC.LAB.BRZ ordered. EDMS EDMS 14:16 09:59 Intensive Care Unit ms3 mb9 14:16 09:59 ms3 mb9 15:51 14:16 [facility] ER HOLD mb9 ja1 15:51 14:16 ERHOLD- mb9 ja1
[2023-05-05 10:03] LABS: Blood O2 Saturation 67.7 % (92-98.5)
[2023-05-05 10:04] LABS: Arterial Blood Carboxyhemoglob 2.9 % (0-1.5); Blood Gas Oxyhemoglobin 64.9 % (94-97)
[2023-05-05] MEDS ORDERED: ONDANSETRON 4 MG/2 ML VIAL ONE (10:19)
[2023-05-05] MEDS ORDERED: ONDANSETRON 4 MG/2 ML VIAL IV PRN (12:50)
--- NOTE | 2023-05-05 12:58 | P.HP ---
Certification for Inpatient Patient admitted to: Inpatient With expected LOS: >2 Midnights Patient will require the following post-hospital care: None Practitioner: I am a practitioner with admitting privileges, knowledge of patient current condition, hospital course, and medical plan of care. Services: Services provided to patient in accordance with Admission requirements found in Title 42 Section 412.3 of the Code of Federal Regulations Patient History Date of Service: 05/05/23 Reason for admission: Diabetic ketoacidosis History of Present Illness: Patient is a 57-year-old gentleman comes to the hospital with diabetic ketoacidosis. Patient was started on IV fluids and insulin drip. Patient ran out of his insulin 70/30 about 48 hours ago. Since then he started having nausea and vomiting along with abdominal pain. Patient's symptoms were typical of DKA. Patient was given aggressive IV hydration and started on insulin drip. At this time, patient will be admitted to the hospital for further evaluation. Allergies No Known Allergies Allergy (Verified 01/20/19 05:13) Home Medications: Insulin 70/30 NPH/Reg Human [Novolin 70/30*] 40 units SQ BID 01/20/19 - Past Medical/Surgical History Diabetic: Yes -: HTN -: IDDM - Social History Alcohol use: Yes CD- Drugs: No Caffeine use: Yes Review of Systems 10-point ROS is otherwise unremarkable Physical Examination - Vital Signs Temperature: 98 F Blood Pressure: 160/90 Pulse: 80 Respirations: 18 Pulse Ox (%): 95 - Physical Exam General: Alert, In no apparent distress, Oriented x3 HEENT: Atraumatic, PERRLA, Mucous membr. moist/pink, EOMI, Sclerae nonicteric Neck: Supple, 2+ carotid pulse no bruit, No LAD, Without JVD or thyroid abnormality Respiratory: Clear to auscultation bilaterally, Normal air movement Cardiovascular: Regular rate/rhythm, Normal S1 S2 Gastrointestinal: Normal bowel sounds, No tenderness Musculoskeletal: No tenderness Integumentary: No rashes Neurological: Normal gait, Normal speech, Normal strength at 5/5 x4 extr, Normal tone, Normal affect Lymphatics: No axilla or inguinal lymphadenopathy - Studies Laboratory Data (last 24 hrs) 05/05/23 05/05/23 08:37 08:37 WBC 13.40 H Hgb 15.3 Hct 47.2 Plt Count 283 Sodium 135 L Potassium 4.9 BUN 20 H Creatinine 1.30 Glucose 467 H* Phosphorus 3.3 Magnesium 1.7 Total Bilirubin 1.2 H AST 19 ALT 30 Alkaline Phosphatase 157 H Lipase 12 L Assessment & Plan - Problems (Diagnosis) (1) DKA (diabetic ketoacidoses) Current Visit: No Status: Acute Qualifiers: - Plan 1. Continue with insulin drip 2. Continue with aggressive IV hydration 3. Monitor hemoglobin A1c 4. Blood sugars every hour 5. Check BMP every 6 hours 6. Supervisor [place] regarding blood sugars 7. Repeat acetone level in a.m. 8. GI DVT prophylaxis - Advance Directives Does patient have a Living Will: No Does patient have a Durable POA for Healthcare: No
[2023-05-05] MEDS ORDERED: D5 0.45 NS 1,000 ML IV SCH (13:00)
[2023-05-05 13:36] LABS: Magnesium 1.8 mg/dL (1.6-2.4); Potassium 4.3 mEq/L (3.5-5.1)
[2023-05-05] MEDS ORDERED: D5W 1,000 ML IV ONE (15:35)
[2023-05-05] MEDS ORDERED: D5 0.45 NS 1,000 ML IV ONE (15:38)
[2023-05-05 15:53] LABS: Potassium 4.1 mEq/L (3.5-5.1)
[2023-05-05] MEDS ORDERED: INSULIN 70/30 100 UNITS/ML SQ ONE (17:17)
[2023-05-05] MEDS: INSULIN 70/30 100 UNITS/ML SQ SCH (17:19)
[2023-05-05 17:57] VITALS: BMI 23.7
[2023-05-05] MEDS ORDERED: PNEUMOCOCCAL VACCINE 0.5 ML IMVAC ONE ×2 (18:00→22:03)
[2023-05-05] MEDS ORDERED: INFLUENZA VACCINE (for 6+ mo) 0.5 ML DOSE IMVAC ONE ×2 (18:00→22:04)
[2023-05-05 18:29] LABS: Specific Gravity 1.025 (1.005-1.030); Urine Bacteria None Seen /HPF (<20); Urine Bilirubin NEGATIVE (Negative); Urine Blood Negative (Negative); Urine Clarity Clear (Clear); Urine Color Yellow (Yellow); Urine Glucose 4+ (Over) (Negative); Urine Mucus Slight /HPF (None Seen); Urine Protein TRACE (Negative); Urine RBC None Seen /HPF (None Seen); Urine Urobilinogen Normal (Normal)
[2023-05-05] MEDS: NA CHLORIDE 0.9% 1,000 ML IV SCH (18:30)
[2023-05-05] MEDS ORDERED: D50W 25 GM/50 ML SYRINGE IV PRN (19:12)
[2023-05-05] MEDS ORDERED: GLUCAGON 1 MG/VIAL IM PRN (19:12)
[2023-05-05 20:21] LABS: Potassium 4.6 mEq/L (3.5-5.1)
[2023-05-05] MEDS ORDERED: INSULIN REGULAR (HUMAN) 100 UNIT/ML ONE (21:19)
[2023-05-05] MEDS: INSULIN REGULAR (HUMAN) 100 UNIT/ML SQ SCH (21:59)
[2023-05-06] MEDS ORDERED: NA CHLORIDE 0.9% 1,000 ML ONE (03:54)
[2023-05-06] MEDS: NA CHLORIDE 0.9% 1,000 ML IV SCH (03:54)
[2023-05-06 04:54] LABS: Absolute Lymphocytes (CBC) 3.6 K/uL (0.7-4.9); Hematocrit 40.8 % (39.6-49.0); Lymphocytes % 38.7 % (15.3-44.8); MCV 87.9 fL (80-100); MPV 7.7 fL (7.6-11.3); Platelets 233 thou/uL (152-406); RBC Red Blood Cell Count 4.65 M/uL (4.33-5.43)
[2023-05-06 05:13] LABS: Albumin 2.9 g/dL (3.4-5.0); Bilirubin Total 0.8 mg/dL (0.2-1.0); Magnesium 1.7 mg/dL (1.6-2.4); Phosphorus 3.1 mg/dL (2.5-4.9); Potassium 3.9 mEq/L (3.5-5.1); Protein, Total 6.8 g/dL (6.4-8.2)
[2023-05-06] MEDS ORDERED: MAGNESIUM SULFATE 1 gm IVPB 1 GM/100 ML BAG IV ONE ×2 (06:18→07:00)
[2023-05-06 07:25] VITALS: O2SAT 98
[2023-05-06] MEDS ORDERED: INSULIN 70/30 100 UNITS/ML SQ ONE (07:48)
[2023-05-06] MEDS ORDERED: INSULIN REGULAR (HUMAN) 100 UNIT/ML ONE ×2 (07:48→12:38)
[2023-05-06] MEDS: INSULIN 70/30 100 UNITS/ML SQ SCH (07:53)
[2023-05-06] MEDS: INSULIN REGULAR (HUMAN) 100 UNIT/ML SQ SCH ×2 (07:53→12:40)
[2023-05-06] MEDS ORDERED: ENOXAPARIN 40 MG/0.4 ML SQ SCH (09:00)
[2023-05-06 11:49] VITALS: BP 127/77; TEMP 97.9
--- NOTE | 2023-05-06 17:37 | EKG ---
Test Date: 2023-05-05 Test Time: 08:28:22 Rn Neurology: [place] MEASUREMENT RESULTS: Intervals: Rate: 101 GA: 136 QRSD: 86 QT: 342 QTc: 443 [place]: P: 69 GA: 136 QRS: 88 T: 56 INTERPRETIVE STATEMENTS: Sinus tachycardia Otherwise normal ECG Compared to ECG 03/17/2023 20:15:58 Sinus rhythm no longer present Electronically Signed On 05-06-23 17:34:23 PRINCIPAL ARCHAEOLOGIST by Taye Acevedo
== END 2023-05-06 13:47 | disposition home or self-care (01) | DRG 639 ==
LOC: ER 08:19 → ERHOLD 12:58 → 3RD-ICU 18:05
PROVIDERS: ADMIT Hospitalist; ATTEND Hospitalist
DX: E10.10 Type 1 diabetes mellitus with ketoacidosis without coma (principal); I10 Essential (primary) hypertension; I25.2 Old myocardial infarction; Z91.148 Patient's other noncompliance with medication regimen for other reason; Z79.4 Long term (current) use of insulin; Z95.5 Presence of coronary angioplasty implant and graft; Z23 Encounter for immunization
CPT/HCPCS: 36415; 36600; 80048; 80053; 80061; 80076; 81001; 82010; 82805; 82947; 83690; 83735; 84100; 85025; 90471; 90732; 93005; 96361; 96374; 96375; 99285; J1650; J1815; J2405; J3475; J7030; J7799; Q2035

== ENCOUNTER → 2023-07-19 | Emergency (ER) | payer SELFPAY ==
[~2023-07-19] MED LIST: AMOX/K CLAV 875 MG TAB ONE; BUPIVACAINE 0.5% PF 10 ML VIAL ONE; D10W 250 ML IV ONE; HYDROCORTISONE SUC 100 MG INJ ONE; LIDOCAINE 1% MPF 5 ML VIAL ONE; LIDOCAINE 2% MPF 5 ML VIAL ONE; TDAP (DIPHTH,PERTUSS(ACELL),TET VAC) 0.5 ML VIAL IMVAC ONE
[2023-07-19 23:23] LABS: Absolute Basophils 0.1 K/uL (0-0.5); Absolute Eosinophils 0.1 K/uL (0-0.5); Absolute Lymphocytes (CBC) 2.9 K/uL (0.7-4.9); Absolute Monocytes 0.5 K/uL (0.1-1.3); Absolute Neutrophil 3.9 K/uL (1.8-8.0); Eosinophils % 1.5 % (0-4.4); Hematocrit 42.3 % (39.6-49.0); Hemoglobin 13.9 g/dL (13.6-17.9); Lymphocytes % 38.7 % (15.3-44.8); MCHC 32.9 g/dL (32.0-36.0); MPV 7.5 fL (7.6-11.3); Monocytes % 7.1 % (3.3-12.3); Neutrophils % 51.7 % (41.7-73.7); Platelets 302 thou/uL (152-406); RBC Red Blood Cell Count 4.81 M/uL (4.33-5.43); Red Cell Distribution Width 15.4 % (12.1-15.2)
[2023-07-19 23:33] LABS: Protime INR 1.09
[2023-07-20 00:21] LABS: Albumin 3.2 g/dL (3.4-5.0); Albumin/Globulin Ratio 0.8 (1.1-1.8); Anion Gap 7.6 mEq/L (5.0-15.0); Bilirubin Direct 0.1 mg/dL (0-0.2); Bilirubin Indirect, Calculated 0.3 mg/dL (0.2-0.8); Bilirubin Total 0.4 mg/dL (0.2-1.0); Globulin 4.2 g/dL (2.3-3.5); Potassium 3.6 mEq/L (3.5-5.1); Protein, Total 7.4 g/dL (6.4-8.2)
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
[2023-07-20 04:12] VITALS: BP 108/68; TEMP 98.8; O2SAT 100
--- NOTE | 2023-07-20 14:13 | RAD REPORT ---
EXAM DESCRIPTION: CT Maxillofacial Without Intravenous Contrast CLINICAL HISTORY: FACIAL PAIN, Fall TECHNIQUE: Axial computed tomography images of the face without intravenous contrast. Sagittal and coronal reformatted images were created and reviewed. This CT exam was performed using one or more of the following dose reduction techniques: automated exposure control, adjustment of the mA and/o r kV according to patient size, and/or use of iterative reconstruction technique. COMPARISON: No relevant prior studies available. FINDINGS: Bones/joints: Mildly angulated bilateral nasal bone fracture deformities which appear fa irly well corticated. Questionable fracture at the anterior wall of the left maxillary sinus. Soft tissues: Mild to moderate left facial soft tissue swelling. Orbits: Unremarkable. Sinuses: Mild to moderate left and mild right maxillary sinus mucosal thickening. No air-fluid le vels. IMPRESSION: 1. Mild to moderate left facial soft tissue swelling. Questionable fracture at the ant erior wall of the left maxillary sinus. 2. Bilateral nasal bone fracture deformities which appear fairly well corticated suggesting remote trauma. Please correlate with point tenderness. Electronically signed by: Tracie Brunner MD 07/20/2023 12:19 AM CDT Due to temporary technical issues with the PACS/Fluency reporting system, reports are being signed by the in house radiologist without review as a courtesy to ensure prompt reporting. The interpreting r adiologist is fully responsible for the content of the report.
--- NOTE | 2023-07-20 14:14 | RAD REPORT ---
EXAM DESCRIPTION: ADDENDUM #1 Addendum: Additional findings with altered impression as below 1. Large diffuse disc bulge at the C5-6 level with caudal extrusion and severe stenosis of the corinne cent spinal canal (5.8 mm in AP diameter). Consider further characterization by MRI to assess for cor d compression. If the patient demonstrates no neurological symptoms, this could be done as an outpati ent nonemergently.. 2. Subtle cortical irregularity of the anterior and posterior lateral warner of the left maxillary s inus, consistent with nondisplaced fractures. Slightly hyperdense air-fluid level within the left max illary sinus most consistent with intrasinus blood products. 3. Soft tissue swelling and skin thickening over the left cheek most compatible with contusion. 4. No acute intracranial abnormality. No acute osseous abnormalities cervical spine. Dr. Da Silva discussed the findings regarding disc bulge and severe canal stenosis at the C5-6 level wit RACHEL Mcghee, via telephone at approximately 00:25 hours EST on 07/20/2023. Electronically signed by: Jarrell Da Silva MD 07/20/2023 12:33 AM CDT End of Addendum EXAM DESCRIPTION: CT Head and Cervical Spine Without Intravenous Contrast CLINICAL HISTORY: The patient is 57 years old and is Male; fall Bed Name: 8 TECHNIQUE: Axial computed tomography images of the head/brain and cervical spine without intravenous contrast. Sagittal and coronal reformatted images were created and reviewed. This CT exam was pe rformed using one or more of the following dose reduction techniques: automated exposure control, a djustment of the mA and/or kV according to patient size, and/or use of iterative reconstruction techn ique. COMPARISON: No relevant prior studies available. FINDINGS: BRAIN: Diffusely hyperattenuating appearance of the superficial and deep cerebral veins, with none appearing focally hyperdense or distended. Appearance suggests recent intravenous contrast administration or relative patient hypovolemia/dehydration. No extra-axial fluid collection. No intracranial hemorrhage. No focal fernandez-white matter differentiation abnormality. MIDLINE SHIFT: No midline shift. VENTRICLES: Unremarkable No ventriculomegaly. SKULL: Air-fluid level noted within the left maxillary sinus. SINUSES: See above. MASTOID AIR CELLS: Unremarkable as visualized. No mastoid effusion. VERTEBRAE: Mild multilevel spondylosis, greatest on the C6-7 level. Straightening of the of normal lordosis of the cervical spine as the patient is positioned. A ppearance is nonspecific and could be positional or seen with muscular strain or spasm. No acute fracture or acute vertebral body height loss. No significant subluxation. DISCS/SPINAL CANAL/NEURAL FORAMINA: Large diffuse disc bulge at the C5-6 level with caudal extrusio n and severe stenosis of the adjacent spinal canal (5.8 mm in AP diameter). No transtentorial herniation. No significant obi spinal canal stenosis. OTHER BONES/JOINTS: Unremarkable as visualized. No fracture of the calvarium or visualized facial bones. SOFT TISSUES: Asymmetric focal skin thickening and underlying subcutaneous edema involving the ante rior left cheek. No discrete fluid collection to suggest abscess. No abnormal prevertebral soft tissue swelling. LUNG APICES: Emphysema. OTHER FINDINGS: Dens is intact. No dislocation. Craniocervical orientation is normal. IMPRESSION: 1. Large diffuse disc bulge at the C5-6 level with caudal extrusion and severe stenosi s of the adjacent spinal canal (5.8 mm in AP diameter). Consider further characterization by MRI to a ssess for cord compression. 2. No acute intracranial abnormality. No acute osseous abnormality of the cervical spine. 3. Asymmetric focal skin thickening and underlying subcutaneous edema involving the anterior left c heek. No discrete fluid collection to suggest abscess. Cellulitis versus contusion. Recommend clinica l correlation for evidence of insect bite, trauma, other etiology. 4. Air-fluid level noted within the left maxillary sinus. Correlate for clinical evidence of acute sinusitis. 5. Emphysema. Electronically signed by: Jarrell Da Silva MD 07/20/2023 12:24 AM CDT Due to temporary technical issues with the PACS/Fluency reporting system, reports are being signed by the in house radiologist without review as a courtesy to ensure prompt reporting. The interpreting r adiologist is fully responsible for the content of the report.
--- NOTE | 2023-07-20 14:14 | EKG ---
Test Date: 2023-07-19 Test Time: 23:01:41 Environmental Educator: RV MEASUREMENT RESULTS: Intervals: Rate: 74 [place]: 132 QRSD: 88 QT: 378 QTc: 419 [place]: P: 18 [place]: 132 QRS: 84 T: 26 INTERPRETIVE STATEMENTS: Normal sinus rhythm Normal ECG Compared to ECG 05/05/2023 08:28:22 Sinus tachycardia no longer present Electronically Signed On 07-20-23 14:13:23 CDT by Taye Acevedo
--- NOTE | 2023-07-20 14:19 | RAD REPORT ---
EXAM DESCRIPTION: Hand Left 3 View CLINICAL HISTORY: 57-year-old male with pain. TECHNIQUE: Three views LEFT hand were obtained in AP, lateral and oblique projections COMPARISON: None. FINDINGS: Fracture of the distal aspect of the fifth digit metacarpal with dorsal apex angulation of the fracture components. The joint spaces are preserved. No soft tissue abnormalities are seen. IMPRESSION: Fifth digit Boxer's fracture. Electronically signed by: Patricia Hernadez MD 07/20/2023 12:38 AM CDT Due to temporary technical issues with the PACS/Fluency reporting system, reports are being signed by the in house radiologist without review as a courtesy to ensure prompt reporting. The interpreting r adiologist is fully responsible for the content of the report.
== END ==
LOC: ER 22:46
PROC: 0HQ1XZZ Repair Face Skin, External Approach (ICD-10-PCS; principal; 2023-07-19)
PROC: 0PSV35Z Reposition Left Finger Phalanx with External Fixation Device, Percutaneous Approach (ICD-10-PCS; 2023-07-19)
DX: S62.337A Displaced fracture of neck of fifth metacarpal bone, left hand, initial encounter for closed fracture (principal); S02.40DA Maxillary fracture, left side, initial encounter for closed fracture; S01.81XA Laceration without foreign body of other part of head, initial encounter; E11.65 Type 2 diabetes mellitus with hyperglycemia; Z79.4 Long term (current) use of insulin; V18.0XXA Pedal cycle driver injured in noncollision transport accident in nontraffic accident, initial encounter
CPT/HCPCS: 36415; 70450; 70486; 72125; 76377; 80048; 80076; 82077; 82947; 83735; 84484; 85025; 85610; 93005

== ENCOUNTER 2023-08-27 18:28 | Emergency (ER) | payer OTHER, SELFPAY ==
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
--- NOTE | 2023-08-27 19:20 | RAD REPORT ---
EXAM DESCRIPTION: RAD - Ankle Right 3 View - 08/27/2023 7:15 pm CLINICAL HISTORY: PAIN COMPARISON: Facial Bones W/ Mpr dated 07/19/2023No comparisons FINDINGS: Oblique fracture of the distal fibula is seen with adjacent moderate soft tissue swelling. No dislocation seen. Small plantar calcaneal spur.
--- NOTE | 2023-08-27 19:21 | RAD REPORT ---
EXAM DESCRIPTION: RAD - Hand Left 3 View - 08/27/2023 7:15 pm CLINICAL HISTORY: PAIN COMPARISON: Hand Left 3 View dated 07/19/2023 FINDINGS: Mildly angulated fracture second, third and fifth metacarpal necks. No dislocation.
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
[2023-08-27 19:44] LABS: Absolute Eosinophils 0.3 K/uL (0-0.5); Absolute Lymphocytes (CBC) 2.4 K/uL (0.7-4.9); Absolute Monocytes 0.5 K/uL (0.1-1.3); Absolute Neutrophil 7.5 K/uL (1.8-8.0); Basophils % 0.5 % (0-1.3); Eosinophils % 2.8 % (0-4.4); Hematocrit 43.9 % (39.6-49.0); Hemoglobin 14.8 g/dL (13.6-17.9); MCH 29.5 pg (27.0-35.0); MCHC 33.6 g/dL (32.0-36.0); MCV 87.7 fL (80-100); MPV 7.2 fL (7.6-11.3); Monocytes % 4.8 % (3.3-12.3); Neutrophils % 69.9 % (41.7-73.7); Nucleated Red Blood Cells % 0.1 % (0-0); Platelets 224 thou/uL (152-406); Red Cell Distribution Width 15.6 % (12.1-15.2)
[2023-08-27 19:55] LABS: Anion Gap 6.7 mEq/L (5.0-15.0); Potassium 3.7 mEq/L (3.5-5.1)
[2023-08-27] MEDS ORDERED: FENTANYL CITR 100 MCG/2 ML ONE (20:03)
[2023-08-27] MEDS ORDERED: TDAP (DIPHTH,PERTUSS(ACELL),TET VAC) 0.5 ML VIAL IMVAC ONE (20:05)
[2023-08-27] MEDS ORDERED: LEVETIRACETAM 500 MG/5 ML VIAL IV ONE (20:05)
[2023-08-27] MEDS ORDERED: ONDANSETRON 4 MG/2 ML VIAL ONE (20:05)
[2023-08-27] MEDS ORDERED: NA CHLORIDE 0.9% 100 ML ONE ×2 (20:06→20:21)
[2023-08-27] MEDS ORDERED: D5 0.45 NS 1,000 ML IV ONE (20:06)
[2023-08-27] MEDS ORDERED: CEFAZOLIN SODIUM 2 GM/VIAL ONE (20:21)
--- NOTE | 2023-08-27 20:37 | RAD REPORT ---
EXAM DESCRIPTION: CT - Chest Abdomen Pelvis W Cont - 08/27/2023 8:25 pm CLINICAL HISTORY: Chest and abdomen pain. TRAUMA COMPARISON: <Comparisons> TECHNIQUE: Approximately 100 mL nonionic IV contrast was administered to the patient. All CT scans are performed using dose optimization technique as appropriate and may include automated exposure control or mA/KV adjustment according to patient size. FINDINGS: The lungs are clear.Normal size thyroid gland.No pleural or pericardial effusion.No intrat horacic adenopathy. The liver, spleen, pancreas, adrenal glands and kidneys are within normal limits. Cholelithiasis. No bowel obstruction, free air, free fluid or abscess. Normal appendix. No pathologic lymphadenopath y in the abdomen or pelvis. No worrisome osseous finding. IMPRESSION: Cholelithiasis.
[2023-08-27 22:00] VITALS: BP 134/77; TEMP 98.6; O2SAT 97
== END 2023-08-27 21:27 | disposition short-term general hospital (02) ==
LOC: ER 18:28
DX: S06.6X0A Traumatic subarachnoid hemorrhage without loss of consciousness, initial encounter (principal); S02.31XA Fracture of orbital floor, right side, initial encounter for closed fracture; S02.40CA Maxillary fracture, right side, initial encounter for closed fracture; S62.331A Displaced fracture of neck of second metacarpal bone, left hand, initial encounter for closed fracture; S62.333A Displaced fracture of neck of third metacarpal bone, left hand, initial encounter for closed fracture; S62.337A Displaced fracture of neck of fifth metacarpal bone, left hand, initial encounter for closed fracture; S82.831A Other fracture of upper and lower end of right fibula, initial encounter for closed fracture; F17.210 Nicotine dependence, cigarettes, uncomplicated; E11.9 Type 2 diabetes mellitus without complications; Z79.4 Long term (current) use of insulin; I10 Essential (primary) hypertension; V18.0XXA Pedal cycle driver injured in noncollision transport accident in nontraffic accident, initial encounter; Z95.818 Presence of other cardiac implants and grafts
CPT/HCPCS: 96365; 85025; 80048; 36415; 86900; 86850; 86901; 82947; 70450; 72125; 71260; 70486; 76377; 74177; 73130; 73610; 96375; 96372; 99285; Q9967; J1953; J3010; J2405; J7799

== ENCOUNTER 2024-07-13 23:52 | Emergency (ER) | payer OTHER ==
[2024-07-14 00:35] LABS: Specific Gravity > 1.030 (1.005-1.030); Sqamous Epithelial <5 /HPF (None Seen); Urine Bacteria None Seen /HPF (<20); Urine Bilirubin NEGATIVE (Negative); Urine Blood Negative (Negative); Urine Clarity Clear (Clear); Urine Color Light-Yellow (Yellow); Urine Culture Reflex Order NOT NEEDED; Urine Glucose TRACE (Negative); Urine Ketones NEGATIVE (Negative); Urine Microscopic Reflex YN ORDER UMIC; Urine Mucus Slight /HPF (None Seen); Urine Nitrite NEGATIVE (Negative); Urine Protein TRACE (Negative); Urine RBC None Seen /HPF (None Seen); Urine Urobilinogen Normal (Normal); Urine WBC <5 /HPF (<5); Urine pH 5.5 (5.0-7.0)
[2024-07-14 00:44] LABS: Absolute Basophils 0.1 K/uL (0-0.5); Absolute Eosinophils 0.1 K/uL (0-0.5); Absolute Lymphocytes (CBC) 2.6 K/uL (0.7-4.9); Absolute Monocytes 0.5 K/uL (0.1-1.3); Absolute Neutrophil 6.1 K/uL (1.8-8.0); Basophils % 1.1 % (0-1.3); Eosinophils % 0.9 % (0-4.4); Lymphocytes % 27.6 % (15.3-44.8); MCH 29.7 pg (27.0-35.0); MCHC 33.4 g/dL (32.0-36.0); MPV 7.6 fL (7.6-11.3); Neutrophils % 65.4 % (41.7-73.7); Nucleated Red Blood Cells % 0.1 % (0-0); Platelets 221 thou/uL (152-406); RBC Red Blood Cell Count 4.72 M/uL (4.33-5.43); Red Cell Distribution Width 14.9 % (12.1-15.2)
[2024-07-14 00:54] LABS: Albumin 3.1 g/dL (3.4-5.0); Albumin/Globulin Ratio 0.8 (1.1-1.8); Anion Gap 5.4 mEq/L (5.0-15.0); Bilirubin Total 0.4 mg/dL (0.2-1.0); Globulin 4.1 g/dL (2.3-3.5); Potassium 3.4 mEq/L (3.5-5.1); Protein, Total 7.2 g/dL (6.4-8.2)
[2024-07-14 01:04] LABS: Barbiturates NEGATIVE (NEGATIVE); Benzodiazepines NEGATIVE (NEGATIVE); Cocaine NEGATIVE (NEGATIVE); METHAMPHETAM NEGATIVE (NEGATIVE); Methadone NEGATIVE (NEGATIVE); Opiates NEGATIVE (NEGATIVE); Phencyclidine NEGATIVE (NEGATIVE); THC Cannibis NEGATIVE (NEGATIVE)
--- NOTE | 2024-07-14 05:07 | ER ---
Nurse's Notes [facility] Name: Bubba Ahumada Age: 58 yrs Sex: Male : 1965 Arrival Date: 07/13/2024 Time: 23:52 Bed IW10 Private MD: Diagnosis: Type 1 diabetes mellitus with hypoglycemia;Drug-induced hypoglycemia without coma;Acute hypoglycemia secondary to insulin Presentation: 07/13 23:50 Chief complaint: Patient states: low blood sugar. Coronavirus screen: Client denies kj2 travel out of the [place] in the last 14 days. Ebola Screen: No symptoms or risks identified at this time. Initial Sepsis Screen: Does the patient meet any 2 criteria? No. Patient's initial sepsis screen is negative. Does the patient have a suspected source of infection? No. Patient's initial sepsis screen is negative. Risk Assessment: Do you want to hurt yourself or someone else? Patient reports no desire to harm self or others. Onset of symptoms was July 13, 2024. 23:50 Method Of Arrival: EMS: [facility] kj2 23:50 Acuity: REED 3 kj2 Triage Assessment: 23:50 General: Appears in no apparent distress. Behavior is calm, cooperative. Pain: Denies kj2 pain. Historical: - Home Meds: 07/14 00:23 Novolin 70/30 [place] Sub-Q [Active]; kj2 - PMHx: 00:23 Hypertension; Diabetes - IDDM; Myocardial infarction; kj2 - PSHx: 00:23 cardiac stents; kj2 - Immunization history:: Adult Immunizations unknown. - Infectious Disease History:: Denies. Screenin/19 23:50 [facility] ED Fall Risk Assessment (Adult) History of falling in the last 3 months, kj2 including since admission No falls in past 3 months (0 pts) Confusion or Disorientation No (0 pts) Intoxicated or Sedated No (0 pts) Impaired Gait No (0 pts) Mobility Assist Device Used No (0 pt) Altered Elimination No (0 pt) Score/Fall Risk Level 0 - 2 = Low Risk Maintained a safe environment, Hourly rounding (assess needs \T\ fall precautionary measures) done. Abuse screen: Denies threats or abuse. Denies injuries from another. Nutritional screening: No deficits noted. Tuberculosis screening: No symptoms or risk factors identified. Assessment: 23:50 General: see triage assessment. kj2 07/14 02:08 General: Appears in no apparent distress. comfortable, Behavior is calm, cooperative. al5 Pain: Denies pain. Neuro: Level of Consciousness is awake, alert, obeys commands, Oriented to person, place, time, situation. Cardiovascular: Capillary refill < 3 seconds Patient's skin is warm and dry. Respiratory: Airway is patent Respiratory effort is even, unlabored, Respiratory pattern is regular, symmetrical. GI: No signs and/or symptoms were reported involving the gastrointestinal system. : No signs and/or symptoms were reported regarding the genitourinary system. EENT: No signs and/or symptoms were reported regarding the EENT system. Derm: Skin is intact, is healthy with good turgor, Skin is pink, warm \T\ dry. normal. Musculoskeletal: No signs and/or symptoms reported regarding the musculoskeletal system. 02:50 Reassessment: Patient appears in no apparent distress at this time. Patient and/or al5 family updated on plan of care and expected duration. Pain level reassessed. Patient is alert, oriented x 3, equal unlabored respirations, skin warm/dry/pink. states he wants to go home. self removed IV onto the bed. this nurse dressed IV site with pressure dressing. no redness, drainage, or edema noted. MD notified and aware. patient informed discharge Patient states feeling better. Patient states symptoms have improved. Vital Signs: 07/13 23:50 BP 130 / 72; Pulse 70; Resp 18; Pulse Ox 100% on R/A; kj2 07/14 00:41 BP 135 / 75; Pulse 74; Pulse Ox 99% on R/A; af3 02:05 BP 120 / 65; Pulse 73; Resp 16; Pulse Ox 98% ; al5 02:30 BP 112 / 62; Pulse 71; Resp 16; Pulse Ox 97% ; al5 02:45 BP 114 / 72; Pulse 69; Resp 16; Pulse Ox 98% ; al5 ED Course: 07/13 23:50 Patient has correct armband on for positive identification. Bed in low position. Call kj2 light in reach. Side rails up X 1. Adult w/ patient. Provided Education on: call light. 23:57 Patient arrived in ED. rv1 07/14 00:00 Jayson Schmid MD is Attending Physician. sp4 00:00 Report given to Brooklynn Monreal RN. kj2 00:08 Brooklynn Schwartz RN is Primary Nurse. al5 00:20 Triage completed. kj2 00:41 Urine Drug Screen Sent. af3 00:41 CBC with Diff Sent. af3 00:41 CMP Sent. af3 00:41 Lipase Sent. af3 02:06 No provider procedures requiring assistance completed. Maintain EMS IV. Dressing al5 intact. Good blood return noted. Site clean \T\ dry. Gauge \T\ site: 20G RAC. Flushed with 10 mL NS. 02:50 IV discontinued, intact, bleeding controlled, No redness/swelling at site. Pressure al5 dressing applied. 05:06 Andrea Lara DO is Referral Physician. sp4 Administered Medications: No medications were administered Medication: 07/13 23:50 VIS not applicable for this client. kj2 Point of Care Testing: Blood Glucose: 07/14 02:08 Blood Glucose: 107 mg/dL; al5 Ranges: Outcome: 02:50 Discharged to home ambulatory, with family, al5 02:50 Condition: good 02:50 Instructed on discharge instructions, follow up and referral plans. Demonstrated understanding of instructions, follow-up care, 05:06 Discharge ordered by . sp4 05:10 Patient left the ED. al5 Signatures: Viviana Huang rv1 Jayson Schmid MD MD sp4 Brooklynn Schwartz RN RN al5 Heike Thurston RN RN kj2 Jenny Montero af3 Corrections: (The following items were deleted from the chart) 03:14 02:50 Reassessment: Patient appears in no apparent distress at this time. Patient al5 and/or family updated on plan of care and expected duration. Pain level reassessed. Patient is alert, oriented x 3, equal unlabored respirations, skin warm/dry/pink. states he wants to go home. self removed IV onto the bed. notified and aware. patient informed discharge Patient states feeling better. Patient states symptoms have improved. al5
--- NOTE | 2024-07-14 05:07 | EDPHYS ---
Physician Documentation [facility] Name: Bubba Ahumada Age: 58 yrs Sex: Male : 1965 Arrival Date: 07/13/2024 Time: 23:52 Bed IW10 Private MD: ED Physician Jayson Schmid HPI: 07/14 00:02 This 58 yrs old Male presents to ER via Unassigned with complaints of low sp4 blood sugar . Historical: - Home Meds: 00:23 Novolin 70/30 [place] Sub-Q [Active]; kj2 - PMHx: 00:23 Hypertension; Diabetes - IDDM; Myocardial infarction; kj2 - PSHx: 00:23 cardiac stents; kj2 - Immunization history:: Adult Immunizations unknown. - Infectious Disease History:: Denies. Vital Signs: 07/13 23:50 BP 130 / 72; Pulse 70; Resp 18; Pulse Ox 100% on R/A; kj2 07/14 00:41 BP 135 / 75; Pulse 74; Pulse Ox 99% on R/A; af3 02:05 BP 120 / 65; Pulse 73; Resp 16; Pulse Ox 98% ; al5 02:30 BP 112 / 62; Pulse 71; Resp 16; Pulse Ox 97% ; al5 02:45 BP 114 / 72; Pulse 69; Resp 16; Pulse Ox 98% ; al5 MDM: 00:52 Medical Screening Exam initiated sp4 07/14 00:01 Order name: CBC with Diff; Complete Time: 00:57 sp4 07/14 00:01 Order name: CMP; Complete Time: 00:57 sp4 07/14 00:01 Order name: Lipase; Complete Time: 00:57 sp4 07/14 00:01 Order name: Urinalysis w/ reflexes; Complete Time: 00:57 sp4 07/14 00:01 Order name: Urine Drug Screen; Complete Time: 05:05 sp4 07/14 00:14 Order name: Glucose, Ancillary Testing; Complete Time: 00:57 EDMS 07/14 02:18 Order name: Glucose, Ancillary Testing; Complete Time: 05:05 EDMS 07/14 00:01 Order name: IV Saline Lock; Complete Time: 00:41 sp4 07/14 00:01 Order name: Labs collected and sent; Complete Time: 00:41 sp4 Administered Medications: No medications were administered Point of Care Testing: Blood Glucose: 02:08 Blood Glucose: 107 mg/dL; al5 Ranges: Critical Glucose Levels:Adult <50 mg/dl or >400 mg/dl <40 mg/dl or >180 mg/dl Disposition Summary: 07/14/24 05:06 Discharge Ordered Notes: Location: Home sp4 Problem: new sp4 Symptoms: have improved sp4 Condition: Stable sp4 Diagnosis - Type 1 diabetes mellitus with hypoglycemia sp4 - Drug-induced hypoglycemia without coma sp4 - Acute hypoglycemia secondary to insulin sp4 Followup: sp4 - With: Andrea Lara DO - When: 7 - 10 days - Reason: Recheck today's complaints Discharge Instructions: - Discharge Summary Sheet sp4 - Hypoglycemia, [id number] sp4 Forms: - Patient Portal Instructions sp4 Signatures: Dispatcher [employer] Jayson Seth MD MD sp4 Heike Thurston RN RN kj2 Corrections: (The following items were deleted from the chart) 00:01 00:01 CBC+H.LAB.BRZ ordered. EDMS EDMS 00:01 00:01 COMPREHENSIVE METABOLIC PANEL+C.LAB.BRZ ordered. EDMS EDMS 00:01 00:01 LIPASE+C.LAB.BRZ ordered. EDMS EDMS 00:01 00:01 Urinalysis+U.LAB.BRZ ordered. EDMS EDMS 00:01 00:01 URINE DRUG SCREEN+UC.LAB.BRZ ordered. EDMS EDMS
[2024-07-14 05:56] VITALS: BP 114/72; O2SAT 98
== END 2024-07-14 05:10 | disposition home or self-care (01) ==
LOC: ER 23:52
DX: E10.649 Type 1 diabetes mellitus with hypoglycemia without coma (principal); Z79.4 Long term (current) use of insulin; Z95.818 Presence of other cardiac implants and grafts
CPT/HCPCS: 36415; 80053; 80307; 81001; 82947; 83690; 85025

== ENCOUNTER 2024-07-26 15:28 | Emergency (ER) | payer BC, OTHER ==
[2024-07-26 16:15] LABS: Sqamous Epithelial None Seen /HPF (None Seen); Urine Bacteria None Seen /HPF (<20); Urine Bilirubin NEGATIVE (Negative); Urine Blood 1+ (Negative); Urine Clarity Clear (Clear); Urine Color Yellow (Yellow); Urine Culture Reflex Order NOT NEEDED; Urine Glucose 3+ (Negative); Urine Ketones NEGATIVE (Negative); Urine Microscopic Reflex YN ORDER UMIC; Urine Mucus Slight /HPF (None Seen); Urine Nitrite NEGATIVE (Negative); Urine Protein TRACE (Negative); Urine RBC <5 /HPF (None Seen); Urine Urobilinogen Normal (Normal); Urine WBC <5 /HPF (<5); Urine Yeast (Budding) Trace /HPF (None Seen); Urine pH 5.5 (5.0-7.0)
--- NOTE | 2024-07-26 16:31 | RAD REPORT ---
EXAM: Chest Single View HISTORY: 58 years Male CHEST PAIN COMPARISON: 08/01/2019 FINDINGS: LUNGS/PLEURA: Increased prominence of the pulmonary interstitium. CARDIAC/MEDIASTINUM: Borderline enlarged cardiac silhouette. UPPER ABDOMEN: No significant abnormality. BONES: No acute abnormality. LINES/TUBES/OTHER: N/A IMPRESSION: Increased prominence of the pulmonary interstitium could reflect either edema or an atypical infectio us process.
[2024-07-26 16:35] LABS: ALT/SGPT 25 U/L (16-61); Albumin 2.6 g/dL (3.4-5.0); Albumin/Globulin Ratio 0.7 (1.1-1.8); Alkaline Phosphatase 104 U/L (45-117); Anion Gap 8.9 mEq/L (5.0-15.0); BUN Blood Urea Nitrogen 28 mg/dL (7-18); Bicarbonate 24 mEq/L (21-32); Bilirubin Total 0.4 mg/dL (0.2-1.0); Globulin 3.5 g/dL (2.3-3.5); Glomerular Filtration Rate 82 ml/min (=/>90); Glucose Level 211 mg/dL (74-106); NT PRO-BNP 167 pg/mL (<125); Protein, Total 6.1 g/dL (6.4-8.2); Sodium Level 137 mEq/L (136-145); Troponin High Sensitivity 17.9 pg/mL (<58.9)
[2024-07-26 16:36] LABS: AST/SGOT 28 U/L (15-37); Bilirubin Direct < 0.2 mg/dL (0-0.2); Bilirubin Indirect, Calculated 0.2 mg/dL (0.2-0.8); Magnesium 1.6 mg/dL (1.6-2.4); Potassium 3.9 mEq/L (3.5-5.1)
[2024-07-26 17:03] LABS: Absolute Lymphocytes (CBC) 1.1 K/uL (0.7-4.9); Absolute Monocytes 0.8 K/uL (0.1-1.3); Absolute Neutrophil 5.4 K/uL (1.8-8.0); Basophils % 0.6 % (0-1.3); Hematocrit 39.5 % (39.6-49.0); Hemoglobin 13.2 g/dL (13.6-17.9); Lymphocytes % 15.4 % (15.3-44.8); MCH 29.3 pg (27.0-35.0); MCHC 33.4 g/dL (32.0-36.0); MCV 87.5 fL (80-100); Monocytes % 10.3 % (3.3-12.3); Neutrophils % 73.7 % (41.7-73.7); Nucleated Red Blood Cells % 0.1 % (0-0); Platelets 200 thou/uL (152-406); RBC Red Blood Cell Count 4.52 M/uL (4.33-5.43); Red Cell Distribution Width 14.9 % (12.1-15.2)
[2024-07-26 17:40] LABS: Arterial Blood Carboxyhemoglob 1.8 % (0-1.5); Blood Gas Oxyhemoglobin 70.7 % (94-97); Blood Gas THB 13.9 g/dl (12-18); Blood O2 Saturation 73.5 % (92-98.5)
[2024-07-26 18:13] LABS: Influenza A Ag Positive; Influenza B Ag Negative; SARS-CoV-2 Antigen Rapid Res Negative (Negative)
--- NOTE | 2024-07-26 19:33 | ER ---
Nurse's Notes [facility] Name: Bubba Ahumada Age: 58 yrs Sex: Male : 1965 Arrival Date: 07/26/2024 Time: 15:28 Bed 7 Private MD: Diagnosis: Unspecified bacterial pneumonia-Atypical;Influenza due to identified novel influenza A virus Presentation: 07/26 15:30 Chief complaint: EMS states: N/V AND HIGH BGL. Coronavirus screen: At this time, the bp client does not indicate any symptoms associated with coronavirus-19. Ebola Screen: No symptoms or risks identified at this time. Initial Sepsis Screen: Does the patient meet any 2 criteria? No. Patient's initial sepsis screen is negative. Does the patient have a suspected source of infection? No. Patient's initial sepsis screen is negative. Risk Assessment: Do you want to hurt yourself or someone else? Patient reports no desire to harm self or others. Onset of symptoms is unknown. Care prior to arrival: IV initiated. 20 GA, in the right forearm. 15:30 Method Of Arrival: EMS: [facility] bp 15:30 Acuity: REED 3 bp Triage Assessment: 15:31 General: Appears in no apparent distress. comfortable, Behavior is calm, cooperative, bp appropriate for age. Pain: Complains of pain in abdomen. EENT: No deficits noted. Neuro: No deficits noted. Cardiovascular: Rhythm is sinus arrythmia. Respiratory: No deficits noted. GI: Reports nausea, vomiting. : No deficits noted. Derm: No deficits noted. Musculoskeletal: No deficits noted. Historical: - Allergies: 15:31 No Known Allergies; bp - Home Meds: 15:31 Novolin 70/30 [place] Sub-Q [Active]; bp - PMHx: 15:31 Myocardial infarction; Hypertension; Diabetes - IDDM; bp - PSHx: 15:31 cardiac stents; bp - Immunization history:: Adult Immunizations up to date. - Infectious Disease History:: Denies. - Social history:: Smoking status: Patient reports the use of cigarette tobacco products, unknown amount. Screenin:00 [facility] ED Fall Risk Assessment (Adult) History of falling in the last 3 months, bp including since admission No falls in past 3 months (0 pts) Confusion or Disorientation No (0 pts) Intoxicated or Sedated No (0 pts) Impaired Gait No (0 pts) Mobility Assist Device Used No (0 pt) Altered Elimination No (0 pt) Score/Fall Risk Level 0 - 2 = Low Risk Oriented to surroundings. Abuse screen: Denies threats or abuse. Denies injuries from another. Nutritional screening: No deficits noted. Tuberculosis screening: No symptoms or risk factors identified. Assessment: 15:30 General: Appears in no apparent distress. comfortable, Behavior is calm, cooperative, bp appropriate for age. 17:30 Reassessment: Patient appears in no apparent distress at this time. Patient is alert, bp oriented x 3, equal unlabored respirations, skin warm/dry/pink. 18:30 Reassessment: PT DISCOVERED NOT IN ROOM. PAGED BY STAFF. bp 19:30 Reassessment: Pt discovered in the lobby. PT states he has a ride waiting for him. PT's kd3 IV access removed for safety. Pt has been encouraged to stay and wait for paper work and prescriptions. . Neuro: Level of Consciousness is awake, alert, obeys commands, Oriented to person, place, time, situation. Respiratory: Airway is patent Trachea midline Respiratory effort is even, unlabored, Respiratory pattern is regular, symmetrical. Vital Signs: 15:30 BP 124 / 72; Pulse 44; Resp 16; Temp 98; Pulse Ox 100% ; bp 18:00 BP 133 / 82; Pulse 83; Resp 15; Pulse Ox 98% ; bp 19:41 dd2 19:41 PT REFUSES LAST SET OF VITALS dd2 ED Course: 15:29 Patient arrived in ED. bp 15:31 Triage completed. bp 15:31 Arm band placed on. bp 15:34 Naun Amado, RN is Primary Nurse. bp 15:36 Serg Dinh is Attending Physician. ci 16:02 XRAY Chest (1 view) In Process Unspecified. EDMS 16:04 BETA HYDROXYBUTYRATE Sent. me1 16:04 Basic Metabolic Panel Sent. me1 16:04 CBC with Diff Sent. me1 16:04 LFT's Sent. me1 16:04 Magnesium Sent. me1 16:04 NT PRO-BNP Sent. me1 16:04 Troponin HS Sent. me1 16:04 Urinalysis w/ reflexes Sent. me1 16:04 Initial lab(s) drawn, by me, sent to lab. Urine collected: clean catch specimen, il1 cloudy. Maintain EMS IV. Dressing intact. Good blood return noted. Site clean \T\ dry. Gauge \T\ site: 20g RFA. Flushed with 10 mL NS. 16:15 EKG done, by ED staff, reviewed by Serg Dinh. me1 17:36 Procalcitonin Sent. me1 17:37 COVID-19 Ag + Flu A+B Ag Sent. me1 17:37 COVID swab sent to lab. Flu and/or RSV swab sent to lab. me1 18:00 Patient has correct armband on for positive identification. bp 19:31 IV discontinued, intact, bleeding controlled, No redness/swelling at site. Pressure kd3 dressing applied. 19:41 Provided Education on: D/C AND RX EDUCATION. dd2 19:41 No provider procedures requiring assistance completed. dd2 Administered Medications: No medications were administered Medication: 18:00 VIS not applicable for this client. bp Outcome: 19:32 Discharge ordered by MD. ci 19:41 Discharged to home ambulatory, dd2 19:41 Condition: stable 19:41 Discharge instructions given to patient, Instructed on discharge instructions, follow up and referral plans. medication usage, Demonstrated understanding of instructions, follow-up care, medications, Prescriptions given X 2, 19:46 Patient left the ED. kd3 Signatures: Dispatcher [employer] Naun Coombs, RN RN Tara Castro RN RN kd3 Amelie Sanches RN RN [facility] [place] Allegra, CAPRICE Colon RN RN dd2 Corrections: (The following items were deleted from the chart) 17:36 16:15 EKG done, by ED staff, reviewed by Naun Amado RN il1 il1
--- NOTE | 2024-07-26 19:33 | EDPHYS ---
Physician Documentation [facility] Name: Bubba Ahumada Age: 58 yrs Sex: Male : 1965 Arrival Date: 07/26/2024 Time: 15:28 Bed 7 Private MD: ED Physician Serg Dinh HPI: 07/26 15:47 This 58 yrs old Male presents to ER via EMS with complaints of High Blood Sugar. ci 15:47 Patient is a 58-year-old male with PMH CAD s/p CI, hypertension, insulin-dependent ci diabetes who presents to the ED for generalized weakness, hyperglycemia. Patient reports he has not felt well for few days and last night his glucose was 500 with no improvement. He is on 60 units of insulin 70/30. Patient also endorses episodes of left-sided chest pain that comes and goes, had one episode of nausea/vomiting. Historical: - Allergies: 15:31 No Known Allergies; bp - Home Meds: 15:31 Novolin 70/30 [place] Sub-Q [Active]; bp - PMHx: 15:31 Myocardial infarction; Hypertension; Diabetes - IDDM; bp - PSHx: 15:31 cardiac stents; bp - Immunization history:: Adult Immunizations up to date. - Infectious Disease History:: Denies. - Social history:: Smoking status: Patient reports the use of cigarette tobacco products, unknown amount. ROS: 19:28 Cardiovascular: Negative for chest pain, palpitations, and edema, Respiratory: Negative ci for shortness of breath, cough, wheezing, and pleuritic chest pain, Neuro: Negative for headache, weakness, numbness, tingling, and seizure, 19:28 Constitutional: Positive for chills, fatigue, 19:28 Constitutional: Negative for 19:28 Abdomen/GI: Negative for 19:33 Cardiovascular: Positive for chest pain, ci 19:33 Respiratory: Negative for cough, shortness of breath, 19:33 Abdomen/GI: Positive for nausea, vomiting, 19:33 Abdomen/GI: Positive for Negative for abdominal pain, diarrhea, constipation, Exam: 19:28 Constitutional: This is a well developed, well nourished patient who is awake, alert, ci and in no acute distress. Head/Face: Normocephalic, atraumatic. Eyes: Pupils equal round and reactive to light, extra-ocular motions intact. Lids and lashes normal. Conjunctiva and sclera are non-icteric and not injected. Cornea within normal limits. Periorbital areas with no swelling, redness, or edema. Chest/axilla: Normal chest wall appearance and motion. Nontender with no deformity. No lesions are appreciated. Cardiovascular: Regular rate and rhythm with a normal S1 and S2. No gallops, murmurs, or rubs. Normal PMI, no JVD. No pulse deficits. Respiratory: Lungs have equal breath sounds bilaterally, clear to auscultation and percussion. No rales, rhonchi or wheezes noted. No increased work of breathing, no retractions or nasal flaring. Abdomen/GI: Soft, non-tender, with normal bowel sounds. No distension or tympany. No guarding or rebound. No evidence of tenderness throughout. Skin: Warm, dry with normal turgor. Normal color with no rashes, no lesions, and no evidence of cellulitis. Neuro: Awake and alert, GCS 15, oriented to person, place, time, and situation. Cranial nerves II-XII grossly intact. Motor strength 5/5 in all extremities. Sensory grossly intact. Cerebellar exam normal. Normal gait. Vital Signs: 15:30 BP 124 / 72; Pulse 44; Resp 16; Temp 98; Pulse Ox 100% ; bp 18:00 BP 133 / 82; Pulse 83; Resp 15; Pulse Ox 98% ; bp 19:41 dd2 19:41 PT REFUSES LAST SET OF VITALS dd2 MDM: 15:36 Medical Screening Exam initiated ci 19:28 Differential diagnosis: DKA, hyperglycemia, hypoglycemic episode, hypothyroidism, ci Pneumonia, dehydration, ACS, viral URI. Data reviewed: vital signs, lab test result(s), EKG. Counseling: I had a detailed discussion with the patient and/or guardian regarding the historical points, exam findings, and any diagnostic results supporting the discharge/admit diagnosis, lab results, radiology results, the need for outpatient follow up, to return to the emergency department if symptoms worsen or persist or if there are any questions or concerns that arise at home. ED course: Patient presents with generalized weakness, concern for hyperglycemia, glucose 211, no anion gap, bicarb 24, not in DKA. Found to have atypical pneumonia and flu. Will discharge on Z-Aldo and Tamiflu.. 04 15:50 Order name: Basic Metabolic Panel; Complete Time: 17:31 ci 04 19:26 Interpretation: Abnormal: GLUC 211. ci 04 15:50 Order name: CBC with Diff; Complete Time: 17:31 ci 04 15:50 Order name: LFT's; Complete Time: 17:31 ci 07/26 15:50 Order name: Magnesium; Complete Time: 17:31 ci 07/26 15:50 Order name: NT PRO-BNP; Complete Time: 17:31 ci 07/26 15:50 Order name: Troponin HS; Complete Time: 17:31 ci 07/26 15:50 Order name: ABG: vbg; Complete Time: 19:25 ci 07/26 19:37 Interpretation: No metabolic acidosis. ci 07/26 15:50 Order name: Urinalysis w/ reflexes; Complete Time: 16:18 ci 07/26 15:50 Order name: BETA HYDROXYBUTYRATE; Complete Time: 17:31 ci 07/26 17:33 Order name: Procalcitonin; Complete Time: 19:25 ci 07/26 17:33 Order name: COVID-19 Ag + Flu A+B Ag; Complete Time: 19:25 ci 07/26 19:25 Interpretation: Abnormal: INFLU A AG Positive. ci 07/26 15:50 Order name: XRAY Chest (1 view); Complete Time: 17:31 ci 07/26 15:50 Order name: Cardiac monitoring; Complete Time: 16:15 ci 07/26 15:50 Order name: EKG - Nurse/Tech; Complete Time: 16:15 ci 07/26 15:50 Order name: IV Saline Lock; Complete Time: 16:03 ci 07/26 15:50 Order name: Labs collected and sent; Complete Time: 16:03 ci 07/26 15:50 Order name: O2 Per Protocol; Complete Time: 16:04 ci 07/26 15:50 Order name: O2 Sat Monitoring; Complete Time: 16:04 ci 07/26 15:50 Order name: Blood Sugar; Complete Time: 16:25 ci 07/26 17:33 Order name: EKG - Nurse/Tech; Complete Time: 17:36 ci Administered Medications: No medications were administered Disposition Summary: 07/26/24 19:32 Discharge Ordered Notes: Location: Home ci Condition: Stable ci Diagnosis - Unspecified bacterial pneumonia - Atypical ci - Influenza due to identified novel influenza A virus ci Followup: ci - With: Private Physician - When: 2 - 3 days - Reason: Recheck today's complaints, Re-evaluation by your physician Discharge Instructions: - Discharge Summary Sheet ci - Diabetes Mellitus and Sick Day Management ci - Community-Acquired Pneumonia, Adult, [id number] ci - Influenza, Adult, [id number] ci Forms: - Medication Reconciliation Form ci - Antibiotic Education ci - Prescription Opioid Use ci - Patient Portal Instructions ci - Leadership Thank You Letter ci Prescriptions: - Zithromax Z-Aldo 250 mg Oral Tablet - take 1 tablet ORAL route as directed for 5 days Day 1 - take two (2) tablets ci one time. Day 2, 3, 4 , 5 take one (1) tablet once daily.; 6 tablet; Refills: 0, Product Selection Permitted - Tamiflu 75 mg Oral capsule - take 1 tablet ORAL route every 12 hours for 5 days; 10 tablet; Refills: 0, ci Product Selection Permitted Signatures: Dispatcher [employer] EDNaun Carrero, RN RN Serg Dinh Corrections: (The following items were deleted from the chart) 15:50 15:50 BASIC METABOLIC PANEL+C.LAB.BRZ ordered. EDMS EDMS 15:50 15:50 CBC+H.LAB.BRZ ordered. EDMS EDMS 15:50 15:50 HEPATIC FUNCTION+C.LAB.BRZ ordered. EDMS EDMS 15:50 15:50 MAGNESIUM+C.LAB.BRZ ordered. EDWI EDMS 15:50 15:50 PROBNP+C.LAB.BRZ ordered. EDWI EDMS 15:50 15:50 Troponin High Sensitivity+C.LAB.BRZ ordered. EDMS EDMS 15:50 15:50 Urinalysis+U.LAB.BRZ ordered. EDMS EDMS 15:50 15:50 BETA HYDROXYBUTYRATE+C.LAB.BRZ ordered. EDWI EDMS 15:51 15:50 Chest Single View+RAD.RAD.BRZ ordered. EDWI EDMS 15:51 15:51 Arterial Blood Gas+RC.LAB.BRZ ordered. EDWI EDMS 19:34 15:47 Patient is a 58-year-old male with PMH CAD s/p CI, hypertension, ci insulin-dependent diabetes who presents to the ED for generalized weakness, hyperglycemia. Patient reports he has not felt well for few days and last night his glucose was 500 with no improvement. He is on 60 units of insulin 70/30. Patient also endorses episodes of left-sided chest pain that comes and goes.. . ci 19:36 19:28 Cardiovascular: Negative for chest pain, palpitations, and edema, Respiratory: ci Negative for shortness of breath, cough, wheezing, and pleuritic chest pain, Abdomen/GI: Negative for abdominal pain, nausea, vomiting, diarrhea, and constipation, Neuro: Negative for headache, weakness, numbness, tingling, and seizure, ci
[2024-07-26 19:54] VITALS: BP 133/82; TEMP 98; O2SAT 98
--- NOTE | 2024-07-27 12:33 | EKG ---
Test Date: 2024-07-26 Test Time: 16:08:55 Concrete Pointer: MEASUREMENT RESULTS: Intervals: Rate: 73 DE: 124 QRSD: 84 QT: 346 QTc: 381 [place]: P: 48 DE: 124 QRS: 84 T: 65 INTERPRETIVE STATEMENTS: Sinus rhythm with occasional premature ventricular complexes Otherwise normal ECG Compared to ECG 07/19/2023 23:01:41 Ventricular premature complex(es) now present Electronically Signed On 07-27-24 12:32:13 CDT by Joshua Rodrigues
== END 2024-07-26 19:46 | disposition home or self-care (01) ==
LOC: ER 15:28
DX: J15.9 Unspecified bacterial pneumonia (principal); J10.1 Influenza due to other identified influenza virus with other respiratory manifestations; I25.2 Old myocardial infarction; E11.9 Type 2 diabetes mellitus without complications; Z79.4 Long term (current) use of insulin; Z95.818 Presence of other cardiac implants and grafts; Z72.0 Tobacco use; Z11.52 Encounter for screening for COVID-19
CPT/HCPCS: 36415; 36600; 71045; 80048; 80076; 81001; 82010; 82805; 83735; 83880; 84145; 84484; 85025; 87428; 93005; 99284

== ENCOUNTER 2024-08-08 06:10 | Emergency (ER) | payer BC ==
[2024-08-08 06:59] LABS: Absolute Basophils 0.1 K/uL (0-0.5); Absolute Lymphocytes (CBC) 1.8 K/uL (0.7-4.9); Absolute Monocytes 0.5 K/uL (0.1-1.3); Absolute Neutrophil 7.7 K/uL (1.8-8.0); Basophils % 0.6 % (0-1.3); Eosinophils % 0.1 % (0-4.4); Hematocrit 42.3 % (39.6-49.0); Hemoglobin 14.3 g/dL (13.6-17.9); Lymphocytes % 17.8 % (15.3-44.8); MCHC 33.8 g/dL (32.0-36.0); MCV 85.8 fL (80-100); MPV 7.5 fL (7.6-11.3); Monocytes % 4.8 % (3.3-12.3); Neutrophils % 76.7 % (41.7-73.7); Nucleated Red Blood Cells % 0.1 % (0-0); Platelets 309 thou/uL (152-406); RBC Red Blood Cell Count 4.93 M/uL (4.33-5.43); Red Cell Distribution Width 14.6 % (12.1-15.2)
[2024-08-08] MEDS ORDERED: D5W 0 ML IV ONE (07:02)
[2024-08-08] MEDS ORDERED: D5 0.45 NS 1,000 ML IV ONE (07:10)
[2024-08-08 07:15] LABS: Albumin 3.1 g/dL (3.4-5.0); Albumin/Globulin Ratio 0.7 (1.1-1.8); Anion Gap 6.6 mEq/L (5.0-15.0); Bilirubin Total 0.4 mg/dL (0.2-1.0); Globulin 4.5 g/dL (2.3-3.5); Potassium 3.6 mEq/L (3.5-5.1); Protein, Total 7.6 g/dL (6.4-8.2)
--- NOTE | 2024-08-08 07:56 | RAD REPORT ---
EXAMINATION: ONE VIEW CHEST XR CLINICAL INDICATION: hypoglycemia, recent pneumonia TECHNIQUE: Frontal chest projection is submitted. Examination is limited by patient positioning and t echnique. COMPARISON: 07-26-24 FINDINGS: The lungs are well inflated and clear. The heart is normal in size. No displaced fractures identified . IMPRESSION: No acute intrathoracic abnormalities.
[2024-08-08] MEDS ORDERED: GLUCAGON 1 MG/VIAL ONE (08:05)
--- NOTE | 2024-08-08 09:08 | EDPHYS ---
Physician Documentation [facility] Name: Bubba Ahumada Age: 58 yrs Sex: Male : 1965 Arrival Date: 08/08/2024 Time: 06:10 Bed 6 Private MD: ED Physician Zia Young HPI: 08/08 06:28 This 58 yrs old Male presents to ER via Unassigned with complaints of Low sp4 Blood Sugar. 07:25 58-year-old male presents with complaint of hypoglycemia with EMS.. sp4 07:25 EMS reports patient has injected 50 units of 70/30 insulin last night at about 10 PM. sp4 In the morning patient was found to be unresponsive with blood sugar 24. EMS stated D10 was administered.. Historical: - Allergies: 06:29 No Known Allergies; dd2 - PMHx: 06:29 Diabetes - IDDM; Hypertension; Myocardial infarction; dd2 - PSHx: 06:29 cardiac stents; dd2 - Immunization history:: Adult Immunizations up to date, Client reports receiving the 2nd dose of the Covid vaccine, Client reports receiving the 1st dose of the Covid vaccine, Flu vaccine is not up to date. It has been more than one year since last vaccine. - Infectious Disease History:: Denies. - Social history:: Smoking status: Patient reports the use of cigarette tobacco products, smokes one-half pack cigarettes per day. - Family history:: not pertinent. ROS: 07:26 Constitutional: Negative for fever, chills, and weight loss, positive for sp4 hypoglycemic episode and episode of unresponsiveness 07:26 All other systems are negative, Exam: 07:26 Constitutional: This is a well developed, well nourished patient who is awake, alert, sp4 and in no acute distress. Head/Face: Normocephalic, atraumatic. Eyes: Pupils equal round and reactive to light, extra-ocular motions intact. Lids and lashes normal. Conjunctiva and sclera are not injected. Cornea within normal limits. Periorbital areas with no swelling, redness, or edema. ENT: Nares patent. No nasal discharge, no septal abnormalities noted. Tympanic membranes are normal and external auditory canals are clear. Oropharynx with no redness, swelling, or masses, exudates, or evidence of obstruction, uvula midline. Mucous membranes moist. Neck: Trachea midline, no thyromegaly or masses palpated, and no cervical lymphadenopathy. Supple, full range of motion without nuchal rigidity, or vertebral point tenderness. Chest/axilla: Normal chest wall appearance and motion. Nontender with no deformity. No lesions are appreciated. Cardiovascular: Regular rate and rhythm with a normal S1 and S2. No gallops, murmurs, or rubs. Normal PMI, no JVD. No pulse deficits. Respiratory: Lungs have equal breath sounds bilaterally, clear to auscultation and percussion. No rales, rhonchi or wheezes noted. No increased work of breathing, no retractions or nasal flaring. Abdomen/GI: Soft, with normal bowel sounds. No distension or tympany. No guarding or rebound. No evidence of tenderness throughout. Back: No spinal tenderness. No costovertebral tenderness. Skin: Warm, dry with normal turgor. Normal color with no rashes, no lesions, and no evidence of cellulitis. MS/ Extremity: Pulses equal, no cyanosis. Neurovascular intact. Full, normal range of motion. Neuro: Awake and alert, GCS 15, oriented to person, place, time, and situation. Cranial nerves II-XII grossly intact. Motor strength 5/5 in all extremities. Sensory grossly intact. Psych: Awake, alert, with orientation to person, place and time. Behavior, mood, and affect are within normal limits Vital Signs: 06:23 BP 127 / 72; Pulse 73; Resp 17; Temp 98.3; Pulse Ox 100% on R/A; Weight 68.04 kg; dd2 Height 5 ft. 6 in. ; 07:43 BP 134 / 85; Pulse 83; Resp 17; Pulse Ox 99% ; ll1 09:13 BP 105 / 70; Pulse 72; Resp 18; Pulse Ox 97% on R/A; ll1 06:23 Body Mass Index 24.21 (68.04 kg, 167.64 cm) dd2 [place] Coma Score: 06:32 Eye Response: spontaneous(4). Motor Response: obeys commands(6). Verbal Response: dd2 oriented(5). Total: 15. 07:26 Eye Response: spontaneous(4). Motor Response: obeys commands(6). Verbal Response: sp4 oriented(5). Total: 15. MDM: 06:30 Medical Screening Exam initiated sp4 07:30 Differential diagnosis: hypothyroidism, myxedema coma, new onset diabetes. Data sp4 reviewed: vital signs, nurses notes, EMS record, old medical records, lab test result(s). Consideration of Admission/Observation Escalation of care including admission/observation considered. Transition of care: After a detail discussion of the patient's case, care is transferred to Zia Young MD. 09:04 Response to treatment: the patient's symptoms have markedly improved after treatment, rn the patient's condition has returned to base line, the patient is now symptom free. 09:05 Counseling: I had a detailed discussion with the patient and/or guardian regarding the rn historical points, exam findings, and any diagnostic results supporting the discharge/admit diagnosis, lab results, radiology results, the need for outpatient follow up, to return to the emergency department if symptoms worsen or persist or if there are any questions or concerns that arise at home. Special discussion: I discussed with the patient/guardian in detail that at this point there is no indication for admission to the hospital. It is understood, however, that if the symptoms persist or worsen the patient needs to return immediately for re-evaluation. ED course: Patient monitored in ER for 3 hours, glucose now greater than 300 after eating breakfast and glucose administration here. Patient states went to bed last night without eating nighttime snack or dinner and this has happened multiple times in the past. No renal insufficiency found. No evidence of infection or acute abnormality otherwise. Will discharge home with return precautions.. 08/08 06:29 Order name: CBC with Diff; Complete Time: 07:25 sp4 08/08 06:29 Order name: CMP; Complete Time: 07:25 sp4 08/08 06:29 Order name: Lipase; Complete Time: 07:25 sp4 08/08 06:38 Order name: Glucose, Ancillary Testing; Complete Time: 07:25 EDMS 08/08 07:59 Order name: Glucose, Ancillary Testing; Complete Time: 08:12 EDMS 08/08 09:00 Order name: Glucose, Ancillary Testing; Complete Time: 09:05 EDMS 08/08 07:34 Order name: XRAY Chest (1 view); Complete Time: 08:12 rn 08/08 06:29 Order name: IV Saline Lock; Complete Time: 06:37 sp4 04/14 06:29 Order name: Labs collected and sent; Complete Time: 06:37 sp4 Administered Medications: 07:17 Drug: D5-1/2 NS IV 1000 ml IV at 125 ml/hr continuous Route: IV; Rate: 125 ml/hr; Site: [facility] right antecubital; 09:04 Follow up: Response: No adverse reaction; IV Status: Order to discontinue infusion; IV ll1 Intake: 250ml 08:09 Drug: Glucagon IVP 1 mg IVP once Route: IVP; Site: right antecubital; 09:04 Follow up: Response: No adverse reaction ll Point of Care Testing: Blood Glucose: 06:29 Blood Glucose: 110 mg/dL; dd2 Ranges: Critical Glucose Levels:Adult <50 mg/dl or >400 mg/dl <40 mg/dl or >180 mg/dl Disposition Summary: 08/08/24 09:07 Discharge Ordered Notes: Location: Home rn Problem: new rn Symptoms: have improved rn Condition: Stable rn Diagnosis - Hypoglycemia, unspecified rn Followup: rn - With: Private Physician - When: As needed - Reason: Recheck today's complaints, Re-evaluation by your physician Discharge Instructions: - Discharge Summary Sheet rn - Hypoglycemia rn - Blood Glucose Monitoring, Adult rn Forms: - Medication Reconciliation Form rn - Antibiotic employee benefits attorney - Prescription Opioid Use rn - Patient Portal Instructions rn - Leadership Thank You Letter rn Signatures: Dispatcher [employer] Zia Garcia MD MD rn Blanchard, Shelby, RN RN Klarissa Galvan, RN RN ll1 Jayson Schmid MD MD sp4 CAPRICE HAGAN RN RN dd2 Corrections: (The following items were deleted from the chart) 06:30 06:30 CBC+H.LAB.BRZ ordered. EDMS EDMS 06:30 06:30 COMPREHENSIVE METABOLIC PANEL+C.LAB.BRZ ordered. EDMS EDMS 06:30 06:30 LIPASE+C.LAB.BRZ ordered. EDMS EDMS 07:26 07:25 EMS reports patient has injected 50 units of 70/30 insulin last night at about 10 sp4 PM. In the morning patient was found to be unresponsive with blood sugar 24. EMS stated D50 was administered.. sp4
--- NOTE | 2024-08-08 09:08 | ER ---
Nurse's Notes [facility] Name: Bubba Ahumada Age: 58 yrs Sex: Male : 1965 Arrival Date: 08/08/2024 Time: 06:10 Bed 6 Private MD: Diagnosis: Hypoglycemia, unspecified Presentation: 08/08 06:23 Chief complaint: EMS states: TONED OUT FOR UNRESPONSIVE. EMS REPORTS THAT UPON ARRIVAL dd2 PT WAS FOUND LYING IN BED, UNRESPONSIVE, AGONAL BREATHING AND VOMIT NOTED. NPA PLACED AND BGS 24. EMS REPORTS 18G IV PLACED, 25 GM D10 ADMINISTERED. PT BECAME RESPONSIVE, NORMAL RESPIRATIONS, NPA REMOVED. EMS REPORTS AAOX3 EN ROUTE. Coronavirus screen: At this time, the client does not indicate any symptoms associated with coronavirus-19. Ebola Screen: No symptoms or risks identified at this time. Initial Sepsis Screen: Does the patient meet any 2 criteria? No. Patient's initial sepsis screen is negative. Does the patient have a suspected source of infection? No. Patient's initial sepsis screen is negative. Risk Assessment: Do you want to hurt yourself or someone else? Patient reports no desire to harm self or others. Onset of symptoms was August 08, 2024. Care prior to arrival: nasal trumpet, Medication(s) given: zofran 4 mg, D10 25 GM IV initiated. 18 GA, in the right antecubital area, Glucose check: 24. 06:23 Method Of Arrival: EMS: [facility] dd2 06:23 Acuity: REED 3 dd2 Triage Assessment: 06:29 General: Appears in no apparent distress. unkempt, Behavior is calm, cooperative, dd2 appropriate for age. Pain: Denies pain. EENT: No deficits noted. No signs and/or symptoms were reported regarding the EENT system. Neuro: Tirado Agitation-Sedation Scale (RASS): 0 - Alert and Calm Level of Consciousness is awake, alert, obeys commands, Oriented to person, place, time, situation, Appropriate for age. Cardiovascular: No deficits noted. Denies chest pain, JVD is absent Patient's skin is warm and dry. Respiratory: Airway is patent Respiratory effort is even, unlabored, Respiratory pattern is regular, symmetrical. Respiratory: Breath sounds are clear bilaterally. GI: Abdomen is flat, non-distended, Bowel sounds present X 4 quads. Abd is soft and non tender X 4 quads. Reports vomiting. : No deficits noted. No signs and/or symptoms were reported regarding the genitourinary system. Derm: Skin is intact, Skin is dry, Skin is normal, Skin temperature is warm. Musculoskeletal: No deficits noted. No signs and/or symptoms reported regarding the musculoskeletal system. Circulation, motion, and sensation intact. Range of motion: intact in all extremities. Historical: - Allergies: : No Known Allergies; dd2 - PMHx: Diabetes - IDDM; Hypertension; Myocardial infarction; dd2 - PSHx: cardiac stents; dd2 - Immunization history:: Adult Immunizations up to date, Client reports receiving the 2nd dose of the Covid vaccine, Client reports receiving the 1st dose of the Covid vaccine, Flu vaccine is not up to date. It has been more than one year since last vaccine. - Infectious Disease History:: Denies. - Social history:: Smoking status: Patient reports the use of cigarette tobacco products, smokes one-half pack cigarettes per day. - Family history:: not pertinent. Screenin:32 [facility] ED Fall Risk Assessment (Adult) History of falling in the last 3 months, dd2 including since admission No falls in past 3 months (0 pts) Confusion or Disorientation No (0 pts) Intoxicated or Sedated No (0 pts) Impaired Gait No (0 pts) Mobility Assist Device Used Yes (1 pt) Altered Elimination No (0 pt) Score/Fall Risk Level 0 - 2 = Low Risk Oriented to surroundings, Maintained a safe environment, Educated pt \T\ family on fall prevention, incl call for assistance when getting out of bed, Assessed \T\ reinforced patient's understanding of fall precautions, Hourly rounding (assess needs \T\ fall precautionary measures) done, Used ambulatory aids as needed (educated on \T\ assisted with). Abuse screen: Denies threats or abuse. Denies injuries from another. Nutritional screening: On diabetic diet. Tuberculosis screening: No symptoms or risk factors identified. Assessment: 06:32 Reassessment: SEE TRIAGE ASSESSMENT FOR FULL ASSESSMENT. dd2 07:00 Reassessment: Report received from warehouse supervisor 3rd shift RN. ll1 07:10 General: Appears in no apparent distress. Behavior is calm, cooperative, appropriate ll1 for age, Reports fatigue for. Pain: Denies pain. Neuro: Reports weakness. 07:43 Reassessment: No changes from previously documented assessment. Patient and/or family ll1 updated on plan of care and expected duration. Pain level reassessed. Patient is alert, oriented x 3, equal unlabored respirations, skin warm/dry/pink. 09:05 Reassessment: No changes from previously documented assessment. Patient and/or family ll1 updated on plan of care and expected duration. Pain level reassessed. Patient is alert, oriented x 3, equal unlabored respirations, skin warm/dry/pink. 09:13 Reassessment: No changes from previously documented assessment. Patient and/or family ll1 updated on plan of care and expected duration. Pain level reassessed. Patient is alert, oriented x 3, equal unlabored respirations, skin warm/dry/pink. Vital Signs: 06:23 BP 127 / 72; Pulse 73; Resp 17; Temp 98.3; Pulse Ox 100% on R/A; Weight 68.04 kg; dd2 Height 5 ft. 6 in. ; 07:43 BP 134 / 85; Pulse 83; Resp 17; Pulse Ox 99% ; ll1 09:13 BP 105 / 70; Pulse 72; Resp 18; Pulse Ox 97% on R/A; ll1 06:23 Body Mass Index 24.21 (68.04 kg, 167.64 cm) dd2 Gilbert Coma Score: 06:32 Eye Response: spontaneous(4). Motor Response: obeys commands(6). Verbal Response: dd2 oriented(5). Total: 15. 07:26 Eye Response: spontaneous(4). Motor Response: obeys commands(6). Verbal Response: sp4 oriented(5). Total: 15. ED Course: 06:19 Patient arrived in ED. kmf 06:28 Jayson Schmid MD is Attending Physician. sp4 06:29 Triage completed. dd2 06:29 Arm band placed on right wrist. dd2 06:32 Patient has correct armband on for positive identification. Bed in low position. Call dd2 light in reach. Side rails up X2. Client placed on continuous cardiac and pulse oximetry monitoring. NIBP monitoring applied. Door closed. Noise minimized. Warm blanket given. Pillow given. Verbal reassurance given. 06:32 No provider procedures requiring assistance completed. Maintain EMS IV. Dressing dd2 intact. Good blood return noted. Site clean \T\ dry. Gauge \T\ site: 18G RAC. Flushed with 10 mL NS IV is patent, is intact, with fluids infusing freely, with good blood return. Patient maintains SpO2 saturation greater than 95% on room air. 06:50 CBC with Diff Sent. dd2 06:50 CMP Sent. dd2 06:50 Lipase Sent. dd2 07:00 Provided Education on: ER procedures and process. ll1 07:33 Attending Physician role handed off by Jayson Schmid MD rn 07:33 Zia Young MD is Attending Physician. rn 07:35 Klarissa Saldana RN is Primary Nurse. ll1 07:48 XRAY Chest (1 view) In Process Unspecified. EDMS 09:13 IV discontinued, intact, bleeding controlled, No redness/swelling at site. Pressure ll1 dressing applied. Administered Medications: 07:17 Drug: D5-1/2 NS IV 1000 ml IV at 125 ml/hr continuous Route: IV; Rate: 125 ml/hr; Site: ll1 right antecubital; 09:04 Follow up: Response: No adverse reaction; IV Status: Order to discontinue infusion; IV ll1 Intake: 250ml 08:09 Drug: Glucagon IVP 1 mg IVP once Route: IVP; Site: right antecubital; 09:04 Follow up: Response: No adverse reaction ll1 Medication: 06:32 VIS not applicable for this client. dd2 Point of Care Testing: Blood Glucose: 06:29 Blood Glucose: 110 mg/dL; dd2 Ranges: Intake: 09:04 IV: 250ml; Total: 250ml. ll1 Outcome: 09:07 Discharge ordered by . rn 09:13 Discharged to home ambulatory, ll1 09:13 Condition: stable 09:13 Discharge instructions given to patient, Instructed on discharge instructions, follow up and referral plans. Demonstrated understanding of instructions, follow-up care, 09:14 Patient left the ED. ll1 Signatures: Dispatcher [employer] EDMS Zia Young MD MD rn Blanchard, Shelby, RN RN Klarissa Saldana RN RN 1 Jayson Schmid MD MD sp4 Almaz Retana f BENTLEY, CAPRICE, RN RN dd2
[2024-08-08 09:28] VITALS: TEMP 98.3
[2024-08-08 09:31] VITALS: BP 105/70; O2SAT 97
== END 2024-08-08 09:14 | disposition home or self-care (01) ==
LOC: ER 06:10
DX: E11.649 Type 2 diabetes mellitus with hypoglycemia without coma (principal); Z79.4 Long term (current) use of insulin; F17.210 Nicotine dependence, cigarettes, uncomplicated; Z95.818 Presence of other cardiac implants and grafts
CPT/HCPCS: 96361; 85025; 36415; 82947 ×3; 83690; 80053; 71045; 96374; 99284; J1610; J7799